=== PATIENT | male | born 1950 | race Caucasian/White ===

== ENCOUNTER → 2018-10-23 14:09 | Outpatient (CLI) | payer MEDICARE, BC, SELFPAY | PROVIDERS: Visit Provider Internal Medicine | DX: N40.0 Benign prostatic hyperplasia without lower urinary tract symptoms (principal); R97.20 Elevated prostate specific antigen [PSA] | CPT/HCPCS: 36415; 84153 ==

== ENCOUNTER 2019-05-30 15:15 | Outpatient (RCR) | payer MEDICARE, BC, SELFPAY ==
--- NOTE | 2019-05-24 15:15 | PT.OIE ---
Current Diagnoses Pain in left shoulder (05/24/19) Weakness (05/24/19) Unspecified injury of muscle(s) and tendon(s) of the rotator cuff of left shoulder, subsequent encounter (05/24/19) Past Medical History (Last Updated 01/21/19 @ 21:20 by Cecile Miller) Benign prostatic hyperplasia (Chronic ~2016) Rosacea (Chronic ~2019) Visit Care Team Role Provider Type Family Provider Specialty: Address: Phone: Fax: Email: Giovanni Cheng MD Attending Provider Physician Primary Care Provider Specialty: Internal Medicine Address: [address] [place] [address], [address], [address] Email: [email or web address] Physical Therapy Initial Evaluation PT-OP-A Visit Information Start: 05/24/19 15:06 Freq: Status: Active Protocol: Document 05/24/19 14:30 DCW (Rec: 05/24/19 15:11 DCW [id number]) Out-Patient Physical Therapy Visit Information Visit Information Visit Type Initial Evaluation Visit Start Time 14:30 Visit Stop Time 15:05 Total Visit Minutes 35 Visit Number 1 Number of GRAPHIC ENGINEER Visits 0 Evaluation Information Evaluation Date 05/24/19 PT-OP-B Current Condition Start: 05/24/19 15:06 Freq: Status: Active Protocol: Document 05/24/19 14:30 DCW (Rec: 05/24/19 17:45 DCW [id number]) Current Condition History of Current Condition Onset Date 8 months Current Complaints Left shoulder pain with certain positions History of Current Condition Pt is a 69 year old male presenting with an eight month history of left shoulder pain . Pt notes he initially just decided to ignore it, and he's been working hard helping to build his house and not allowing it to rest. Since he has basically finished up on his house, however, pt has noticed his shoulder has been feeling much better. Pt does not quite remember and actual injury, but believes his pain began when he was working under his house in a crawl space with his , trying to dig a new sump pump. Pt currently only seems to have pain when doing things like reaching back and up to put his arm in a sleeve. Future Testing and Treatments Planned PCP put in orders for an MRI, but pt has not yet scheduled one yet. PT-OP-C Subjective Start: 05/24/19 15:06 Freq: Status: Active Protocol: Document 05/24/19 14:30 DCW (Rec: 05/24/19 17:45 DCW [id number]) OP-PT Subjective Patient Comments Patient Comments Pt reports lessening pain since he has been able to rest his shoulder the past few weeks Patient Reported Progress Improving Patient Questionnaires Quick Dash- Upper Extremity Quick Dash UE Score 4.55% Quick Dash UE Impairment 1 to 19% Impaired (Score 1-19) OP-PT Pain Assessment Pain Assessment Grid Paper Pain Assessment Grid Completed Yes Location Left Superior Shoulder Pain Location Details Left Superior Shoulder Intensity 4 Scale Used Numeric (1 - 10) Frequency Intermittent PT-OP-E Functional Tests Start: 05/24/19 15:06 Freq: Status: Active Protocol: Document 05/24/19 14:30 DCW (Rec: 05/25/19 08:49 DCW [id number]) Functional Tests Apley's Scratch Test Action 1- Left Posterior opposite shoulder Action 1- Right Posterior opposite shoulder Action 2- Left T4 Action 2- Right T4 Action 3- Left T2 Action 3- Right T4 PT-OP-F Manual Assessment Start: 05/24/19 15:06 Freq: Status: Active Protocol: Document 05/24/19 14:30 DCW (Rec: 05/25/19 08:49 DCW [id number]) Manual Assessments Soft Tissue Assessment Soft Tissue Mobility Assessment Mild tone/trigger points throughout bilateral rotator cuff musculature, nothing abnormal PT-OP-K Range of Motion Start: 05/24/19 15:06 Freq: Status: Active Protocol: Document 05/24/19 14:30 DCW (Rec: 05/25/19 08:49 DCW [id number]) Shoulder Goniometric Range of Motion Shoulder Left Active Shoulder ROM WFL Yes PT-OP-L Special Tests Start: 05/24/19 15:06 Freq: Status: Active Protocol: Document 05/24/19 14:30 DCW (Rec: 05/25/19 08:49 DCW [id number]) Special Tests Shoulder Special Tests Painful Arc Test Results L mildly positive: pain in abd between 100?-160? Passive ER Rotator Cuff Test Results Negative Lift-Off Rotator Cuff Test Results Negative Perdomo Michael Impingement Test Results Negative Apprehension Test Test Results Negative Empty Can Test Results Negative Drop Arm Rotator Cuff Test Results Negative Belly Press Test Results Negative PT-OP-M Strength Start: 05/24/19 15:06 Freq: Status: Active Protocol: Document 05/24/19 14:30 DCW (Rec: 05/25/19 08:49 DCW [id number]) Shoulder Strength Shoulder Manual Muscle Testing Left Flexion 5 Normal Extension 5 Normal Abduction (C5) 4 Good External Rotation 5 Normal Internal Rotation 5 Normal Comments Pt reports pain with resisted abduction PT-OP-Q Treatments Start: 05/24/19 15:06 Freq: Status: Active Protocol: Document 05/24/19 14:30 DCW (Rec: 05/25/19 08:49 DCW [id number]) Therapeutic Exercises Standing Exercises External Rotation Standing Exercise Name Shoulder ER Side left Resistance Lv 3 Equipment Used T-band Internal Rotation Standing Exercise Name Shoulder IR Side left Resistance Lv 3 Equipment Used T-band Flexion Standing Exercise Name Shoulder Flexion Side left Resistance Lv 3 Equipment Used T-band Abduction Standing Exercise Name Shoulder Abduction Side left Resistance Lv 3 Equipment Used T-band PT-OP-T Assessment and Plan Start: 05/24/19 15:06 Freq: Status: Active Protocol: Document 05/24/19 14:30 DCW (Rec: 05/25/19 08:49 DCW [id number]) Physical Therapy Assessment Rehab Potential Rehabilitation Potential Excellent Evaluation Complexity Number of Personal Factors/Comorbidities 0 Number of Body Systems Impaired 1-2 Clinical Presentation at Evaluation Stable Impairments Impairments Pain,Strength Goals Two Impairment Pt has pain at 100?+ abduction Group Home Goal (LTG) Pt to be able to put arm in jacket with no increased shoulder pain. LTG Duration 07/05/19 One Impairment Pt does not have an appropriate home exercise program Short Term Goal (STG) Pt will be independent and compliant with an appropriate HEP STG Duration 06/14/19 Assessment Summary Assessment Pt presents with signs and symptoms of either a supraspinatus sprain or mild tear which has largely healed over the last eight months. Pt 's testing is largely negative , however he does still present with a positive painful arc test, as well as pain with resisted abduction. Pt will benefit from skilled therapy focusing on improving strength and stability of his left shoulder. As pt is already well on his way to healing, pt's course of therapy will not likely need to be very long, and he will probably do well with some HEP instruction and some moderate STM, and then continue independently at home. Physical Therapy Plan Frequency and Duration Frequency of Treatment 2x/Week Duration of Treatment 6 weeks Plan of Care Start Date 05/24/19 Plan of Care End Date 07/05/19 Therapeutic Interventions Therapeutic Interventions Home Exercise Program,Manual Therapy,Patient/Caregiver Education,Self-Care/Home Management,Soft Tissue Mobilization,Therapeutic Exercises Next Visit Focus/Plan Next Note Type Treatment Note Next Visit Plan Shoulder strengthening, modalities
--- NOTE | 2019-05-30 16:00 | PT.OTN ---
Current Diagnoses Pain in left shoulder (05/30/19) Weakness (05/30/19) Unspecified injury of muscle(s) and tendon(s) of the rotator cuff of left shoulder, subsequent encounter (05/30/19) Physical Therapy Treatment Note PT-OP-A Visit Information Start: 05/24/19 15:06 Freq: Status: Active Protocol: Document 05/30/19 15:15 DCW (Rec: 05/30/19 15:59 DCW [id number]) Out-Patient Physical Therapy Visit Information Visit Information Visit Type Treatment Note Visit Start Time 15:15 Visit Stop Time 16:00 Total Visit Minutes 45 Visit Number 2 Number of CHILD GUIDANCE COUNSELOR Visits 0 Evaluation Information Evaluation Date 05/24/19 PT-OP-B Current Condition Start: 05/24/19 15:06 Freq: Status: Active Protocol: Document 05/24/19 14:30 DCW (Rec: 05/24/19 17:45 DCW [id number]) Current Condition History of Current Condition Onset Date 8 months Current Complaints Left shoulder pain with certain positions History of Current Condition Pt is a 69 year old male presenting with an eight month history of left shoulder pain . Pt notes he initially just decided to ignore it, and he's been working hard helping to build his house and not allowing it to rest. Since he has basically finished up on his house, however, pt has noticed his shoulder has been feeling much better. Pt does not quite remember and actual injury, but believes his pain began when he was working under his house in a crawl space with his , trying to dig a new sump pump. Pt currently only seems to have pain when doing things like reaching back and up to put his arm in a sleeve. Future Testing and Treatments Planned PCP put in orders for an MRI, but pt has not yet scheduled one yet. PT-OP-C Subjective Start: 05/24/19 15:06 Freq: Status: Active Protocol: Document 05/30/19 15:15 DCW (Rec: 05/30/19 15:59 DCW [id number]) OP-PT Subjective Patient Comments Patient Comments Pt reports his shoulder is doing better today. PT-OP-E Functional Tests Start: 05/24/19 15:06 Freq: Status: Active Protocol: Document 05/24/19 14:30 DCW (Rec: 05/25/19 08:49 DCW [id number]) Functional Tests Apley's Scratch Test Action 1- Left Posterior opposite shoulder Action 1- Right Posterior opposite shoulder Action 2- Left T4 Action 2- Right T4 Action 3- Left T2 Action 3- Right T4 PT-OP-F Manual Assessment Start: 05/24/19 15:06 Freq: Status: Active Protocol: Document 05/24/19 14:30 DCW (Rec: 05/25/19 08:49 DCW [id number]) Manual Assessments Soft Tissue Assessment Soft Tissue Mobility Assessment Mild tone/trigger points throughout bilateral rotator cuff musculature, nothing abnormal PT-OP-K Range of Motion Start: 05/24/19 15:06 Freq: Status: Active Protocol: Document 05/24/19 14:30 DCW (Rec: 05/25/19 08:49 DCW [id number]) Shoulder Goniometric Range of Motion Shoulder Left Active Shoulder ROM WFL Yes PT-OP-L Special Tests Start: 05/24/19 15:06 Freq: Status: Active Protocol: Document 05/24/19 14:30 DCW (Rec: 05/25/19 08:49 DCW [id number]) Special Tests Shoulder Special Tests Painful Arc Test Results L mildly positive: pain in abd between 100?-160? Passive ER Rotator Cuff Test Results Negative Lift-Off Rotator Cuff Test Results Negative Perdomo Michael Impingement Test Results Negative Apprehension Test Test Results Negative Empty Can Test Results Negative Drop Arm Rotator Cuff Test Results Negative Belly Press Test Results Negative PT-OP-M Strength Start: 05/24/19 15:06 Freq: Status: Active Protocol: Document 05/24/19 14:30 DCW (Rec: 05/25/19 08:49 DCW [id number]) Shoulder Strength Shoulder Manual Muscle Testing Left Flexion 5 Normal Extension 5 Normal Abduction (C5) 4 Good External Rotation 5 Normal Internal Rotation 5 Normal Comments Pt reports pain with resisted abduction PT-OP-Q Treatments Start: 05/24/19 15:06 Freq: Status: Active Protocol: Document 05/30/19 15:15 DCW (Rec: 05/30/19 15:59 DCW [id number]) Cardio Equipment Upper Body Ergometer (UBE) Duration (Minutes) 5 RPM 60 Seat Position 13 Height 4.5 Therapeutic Exercises Supine Exercises Horizontal Adduction Supine Exercise Name Horizontal Adduction Side bilateral Resistance 4# Supine Punch Supine Exercise Name Serratus Punch Side bilateral Resistance 4# Sidelying Exercises External Rotation Sidelying Exercise Name External Rotation Side left Resistance 4# Abduction Sidelying Exercise Name Abduction Side left Resistance 4# Standing Exercises Rows Standing Exercise Name Rows Side bilateral Resistance Lv 3 Equipment Used T-band Adduction Standing Exercise Name Shoulder Adduction Side bilateral Resistance Lv 2 Equipment Used T-band Extension Standing Exercise Name Shoulder Extension Side bilateral Resistance Lv 2 Equipment Used T-band Other Exercises Resisted UE Side-stepping Other Exercise Name Resisted UE side-stepping Resistance Yellow Equipment Used T-band Manual Therapy Treatment Soft Tissue Mobilization Infraspinatus Body Location L Infraspinatus Mobilization Type Strumming,Sustained Pressure, Trigger Point Release Intensity/Depth Moderate Body Position Sidelying Supraspinatus Body Location L Supraspinatus Mobilization Type Strumming,Sustained Pressure, Trigger Point Release Intensity/Depth Moderate Body Position Sidelying Joint Mobilizations GH Joint L GH Direction Inferior Grade III Body Position Sidelying PT-OP-T Assessment and Plan Start: 05/24/19 15:06 Freq: Status: Active Protocol: Document 05/30/19 15:15 DCW (Rec: 05/30/19 15:59 DCW [id number]) Physical Therapy Assessment Impairments Impairments Pain,Strength Goals Two Impairment Pt has pain at 100?+ abduction Half-Way Goal (LTG) Pt to be able to put arm in jacket with no increased shoulder pain. LTG Duration 07/05/19 One Impairment Pt does not have an appropriate home exercise program Short Term Goal (STG) Pt will be independent and compliant with an appropriate HEP STG Duration 06/14/19 Assessment Summary Assessment Pt tolerated treatment very well today. Able to perform all activities within a pain- free ROM. Pt did note some irritation of his left shoulder with side-lying ER, but more of a muscle getting used aching. Physical Therapy Plan Frequency and Duration Frequency of Treatment 2x/Week Duration of Treatment 6 weeks Plan of Care Start Date 05/24/19 Plan of Care End Date 07/05/19 Therapeutic Interventions Therapeutic Interventions Home Exercise Program,Manual Therapy,Patient/Caregiver Education,Self-Care/Home Management,Soft Tissue Mobilization,Therapeutic Exercises Next Visit Focus/Plan Next Note Type Treatment Note Next Visit Plan Shoulder strengthening, modalities
--- NOTE | 2019-08-21 10:09 | PT.OPDS ---
Current Diagnoses Pain in left shoulder (05/30/19) Weakness (05/30/19) Unspecified injury of muscle(s) and tendon(s) of the rotator cuff of left shoulder, subsequent encounter (05/30/19) Visit Care Team Role Provider Type Family Provider Specialty: Address: Phone: Fax: Email: Giovanni Cheng MD Attending Provider Physician Primary Care Provider Specialty: Internal Medicine Address: [address] [place] [address], [address], [facility] Email: [email or web address] Visit Number Visit Number 2 Discharge Summary PT-OP-B Current Condition Start: 05/24/19 15:06 Freq: Status: Active Protocol: Document 05/24/19 14:30 DCW (Rec: 05/24/19 17:45 DCW [id number]) Current Condition History of Current Condition Onset Date 8 months Current Complaints Left shoulder pain with certain positions History of Current Condition Pt is a 69 year old male presenting with an eight month history of left shoulder pain . Pt notes he initially just decided to ignore it, and he's been working hard helping to build his house and not allowing it to rest. Since he has basically finished up on his house, however, pt has noticed his shoulder has been feeling much better. Pt does not quite remember and actual injury, but believes his pain began when he was working under his house in a crawl space with his , trying to dig a new sump pump. Pt currently only seems to have pain when doing things like reaching back and up to put his arm in a sleeve. Future Testing and Treatments Planned PCP put in orders for an MRI, but pt has not yet scheduled one yet. PT-OP-C Subjective Start: 05/24/19 15:06 Freq: Status: Active Protocol: Document 05/30/19 15:15 DCW (Rec: 05/30/19 15:59 DCW [id number]) OP-PT Subjective Patient Comments Patient Comments Pt reports his shoulder is doing better today. PT-OP-E Functional Tests Start: 05/24/19 15:06 Freq: Status: Active Protocol: Document 05/24/19 14:30 DCW (Rec: 05/25/19 08:49 DCW [id number]) Functional Tests Apley's Scratch Test Action 1- Left Posterior opposite shoulder Action 1- Right Posterior opposite shoulder Action 2- Left T4 Action 2- Right T4 Action 3- Left T2 Action 3- Right T4 PT-OP-F Manual Assessment Start: 05/24/19 15:06 Freq: Status: Active Protocol: Document 05/24/19 14:30 DCW (Rec: 05/25/19 08:49 DCW [id number]) Manual Assessments Soft Tissue Assessment Soft Tissue Mobility Assessment Mild tone/trigger points throughout bilateral rotator cuff musculature, nothing abnormal PT-OP-K Range of Motion Start: 05/24/19 15:06 Freq: Status: Active Protocol: Document 05/24/19 14:30 DCW (Rec: 05/25/19 08:49 DCW [id number]) Shoulder Goniometric Range of Motion Shoulder Left Active Shoulder ROM WFL Yes PT-OP-L Special Tests Start: 05/24/19 15:06 Freq: Status: Active Protocol: Document 05/24/19 14:30 DCW (Rec: 05/25/19 08:49 DCW [id number]) Special Tests Shoulder Special Tests Painful Arc Test Results L mildly positive: pain in abd between 100?-160? Passive ER Rotator Cuff Test Results Negative Lift-Off Rotator Cuff Test Results Negative Perdomo Michael Impingement Test Results Negative Apprehension Test Test Results Negative Empty Can Test Results Negative Drop Arm Rotator Cuff Test Results Negative Belly Press Test Results Negative PT-OP-M Strength Start: 05/24/19 15:06 Freq: Status: Active Protocol: Document 05/24/19 14:30 DCW (Rec: 05/25/19 08:49 DCW [id number]) Shoulder Strength Shoulder Manual Muscle Testing Left Flexion 5 Normal Extension 5 Normal Abduction (C5) 4 Good External Rotation 5 Normal Internal Rotation 5 Normal Comments Pt reports pain with resisted abduction PT-OP-T Assessment and Plan Start: 05/24/19 15:06 Freq: Status: Active Protocol: Document 08/21/19 10:08 DCW (Rec: 08/21/19 10:09 DCW [id number]) Physical Therapy Assessment Goals Two Impairment Pt has pain at 100?+ abduction Intermediate Goal (LTG) Pt to be able to put arm in jacket with no increased shoulder pain. LTG Duration 07/05/19 One Impairment Pt does not have an appropriate home exercise program Short Term Goal (STG) Pt will be independent and compliant with an appropriate HEP STG Duration 06/14/19 Assessment Summary Assessment Following his second appointment, pt canceled remaining appointments because he was leaving the area, unsure when he would return. Pt has now not been seen in more than two months, and will be discharged at this time. Pt will require a new referral in order to return. Physical Therapy Plan Frequency and Duration Frequency of Treatment 2x/Week Duration of Treatment 6 weeks Plan of Care Start Date 05/24/19 Plan of Care End Date 07/05/19 Therapeutic Interventions Therapeutic Interventions Home Exercise Program,Manual Therapy,Patient/Caregiver Education,Self-Care/Home Management,Soft Tissue Mobilization,Therapeutic Exercises Discharge Physical Therapy Discharge Reasons No Longer Attending PT Next Visit Focus/Plan Next Note Type Discharge Summary
== END 2019-05-30 16:15 ==
LOC: PHYS 15:15
PROVIDERS: PCP Student in an Organized Health Care Education/Training Program; Visit Provider Student in an Organized Health Care Education/Training Program
DX: M25.512 Pain in left shoulder (principal); S46.002D Unspecified injury of muscle(s) and tendon(s) of the rotator cuff of left shoulder, subsequent encounter; R53.1 Weakness
CPT/HCPCS: 97110; 97140; 97161

== ENCOUNTER → 2019-06-19 11:39 | Outpatient (CLI) | payer MEDICARE, BC, SELFPAY ==
[2019-06-21 16:34] LABS: PSA Free % 23 % (calc) (> 25); PSA, Total 3.9 ng/mL (< 4.1)
== END ==
PROVIDERS: PCP Student in an Organized Health Care Education/Training Program; Visit Provider Urology
DX: Z12.5 Encounter for screening for malignant neoplasm of prostate (principal); R97.20 Elevated prostate specific antigen [PSA]
CPT/HCPCS: 36415; 84153; 84154

== ENCOUNTER → 2019-06-21 13:10 | Outpatient (CLI) | payer MEDICARE, BC, SELFPAY ==
[2019-06-25 10:59] LABS: Fecal Immunochemical Test NOT DETECTED (NOT DETECTED)
== END ==
PROVIDERS: PCP Student in an Organized Health Care Education/Training Program; Visit Provider Student in an Organized Health Care Education/Training Program
DX: Z12.11 Encounter for screening for malignant neoplasm of colon (principal)
CPT/HCPCS: 82274

== ENCOUNTER → 2019-12-31 11:29 | Outpatient (CLI) | payer MEDICARE, BC, SELFPAY ==
[2019-12-31 12:29] LABS: Appearance Urine UA CLEAR; Bilirubin Urine UA NEGATIVE (NEGATIVE); Color Urine UA YELLOW; Glucose Urine UA NEGATIVE (Negative); Ketones Urine UA TRACE (NEGATIVE); Leukocyte Esterase Urine UA NEGATIVE (NEGATIVE); Nitrite Urine UA NEGATIVE (Negative); Occult Blood Urine UA TRACE-INTACT (Negative); Protein Urine UA NEGATIVE (Negative); Urobilinogen Urine UA 0.2 E.U./dL (0.2); pH Urine UA 6.5 (4.5-8.0)
[2019-12-31 12:55] LABS: Bacteria Urine Occasional (0-1); Culture Indicated Urine Cult Not Indicated; RBC Urine 0-1/HPF (0-5/HPF); WBC Urine 1-5/HPF (0-5/HPF)
== END ==
PROVIDERS: PCP Student in an Organized Health Care Education/Training Program; Referring Provider Internal Medicine; Visit Provider Urology
DX: R31.0 Gross hematuria (principal)
CPT/HCPCS: 36415; 81001

== ENCOUNTER → 2020-10-02 16:00 | Outpatient (CLI) | payer MEDICARE, BC, SELFPAY ==
[2020-10-03 13:45] LABS: Fecal Immunochemical Test Negative (Negative)
== END ==
PROVIDERS: PCP Student in an Organized Health Care Education/Training Program; Referring Provider Student in an Organized Health Care Education/Training Program; Visit Provider Student in an Organized Health Care Education/Training Program
DX: Z12.11 Encounter for screening for malignant neoplasm of colon (principal)
CPT/HCPCS: 82274

== ENCOUNTER → 2021-02-12 07:00 | Outpatient (CLI) | payer MEDICARE, BC, SELFPAY ==
[2021-02-12 07:15] LABS: Bacteria Urine None Seen; RBC Urine None Seen (0-5/HPF)
[2021-02-12 07:59] LABS: Appearance Urine UA CLEAR; Bilirubin Urine UA NEGATIVE (NEGATIVE); Color Urine UA YELLOW; Glucose Urine UA NEGATIVE (Negative); Ketones Urine UA NEGATIVE (NEGATIVE); Leukocyte Esterase Urine UA 1+ (NEGATIVE); Nitrite Urine UA NEGATIVE (Negative); Occult Blood Urine UA TRACE-LYSED (Negative); Protein Urine UA NEGATIVE (Negative); Specific Gravity Urine UA >=1.030 (1.000-1.035); Urobilinogen Urine UA 0.2 E.U./dL (0.2)
[2021-02-12 08:14] LABS: Alanine Aminotransferase 14 IU/L (<50); Albumin 4.1 g/dL (3.5-5.0); Albumin Globulin Ratio 1.5 (1.0-2.8); Alkaline Phosphatase 63 U/L (38-126); Aspartate Aminotransferase 40 IU/L (17-59); Bilirubin Unconjugated 0.9 mg/dL (0.0-1.1); Cholesterol 200 mg/dL (140-199); Globulin 2.8 g/dL (1.7-4.1); HDL Cholesterol 58 mg/dL (40-60); HEMOLYSIS < 15 (0-50); LDL Cholesterol Calculated 127 mg/dL (<100); Total Protein 6.9 g/dL (6.3-8.2); Triglycerides 75 mg/dL (35-150)
[2021-02-12 08:24] LABS: Culture Indicated Urine Specimen Cultured; WBC Urine 5-10/HPF (0-5/HPF)
[2021-02-13 06:08] LABS: PSA Free % 18.4 % (.); PSA, Total 3.2 ng/mL (0.0-4.0)
== END ==
PROVIDERS: PCP Student in an Organized Health Care Education/Training Program; Referring Provider Internal Medicine; Visit Provider Internal Medicine
DX: E78.5 Hyperlipidemia, unspecified (principal); R97.20 Elevated prostate specific antigen [PSA]; N39.0 Urinary tract infection, site not specified
CPT/HCPCS: 36415; 80061; 80076; 81001; 84153; 84154; 87086

== ENCOUNTER → 2022-12-27 07:32 | Outpatient (CLI) | payer MEDICARE, BC, SELFPAY ==
[2022-12-27 08:49] LABS: Cholesterol 176 mg/dL (140-199); HDL Cholesterol 60 mg/dL (40-60); LDL Cholesterol Calculated 94 mg/dL (<100); Triglycerides 109 mg/dL (35-150)
[2022-12-28 20:20] LABS: Hep C Virus Ab w/Reflex Quant NEGATIVE s/c (NEGATIVE)
== END ==
PROVIDERS: PCP Student in an Organized Health Care Education/Training Program; Referring Provider Student in an Organized Health Care Education/Training Program; Visit Provider Student in an Organized Health Care Education/Training Program
DX: E78.2 Mixed hyperlipidemia (principal)
CPT/HCPCS: 36415; 80061; 86803

== ENCOUNTER → 2023-01-07 11:20 | Outpatient (CLI) | payer MEDICARE, BC, SELFPAY ==
[2023-01-10 13:09] LABS: Fecal Immunochemical Test Negative (Negative)
== END ==
PROVIDERS: PCP Student in an Organized Health Care Education/Training Program; Referring Provider Student in an Organized Health Care Education/Training Program; Visit Provider Student in an Organized Health Care Education/Training Program
DX: Z12.11 Encounter for screening for malignant neoplasm of colon (principal)
CPT/HCPCS: 82274

== ENCOUNTER 2023-04-04 11:15 | Outpatient (RCR) | payer MEDICARE, BC, SELFPAY ==
--- NOTE | 2023-01-31 18:47 | PT.OIE ---
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] Visit Care Team Role Provider Type Ben Dennis MD Family Provider Physician Primary Care Provider Specialty: Internal Medicine Pediatrics Address: [address] [place] [address], [address] Phone: Fax: Email: [email or web address] Mary Dolan PA-C Attending Provider Advanced Shoer Referring Provider Specialty: Emergency Medicine Address: [address] [place] [address], [address] Email: [email or web address] Physical Therapy Initial Evaluation PT-OP-A Visit Information Start: 01/30/23 21:33 Freq: Status: Active Protocol: Document 01/31/23 08:04 LRN (Rec: 01/31/23 08:55 LRN [id number]) Out-Patient Physical Therapy Visit Information Visit Information Visit Type Initial Evaluation Visit Start Time 08:04 Visit Stop Time 08:54 Total Visit Minutes 50 Visit Number 1 Evaluation Information Evaluation Date 01/31/23 Precautions Precautions None PT-OP-B Current Condition Start: 01/30/23 21:33 Freq: Status: Active Protocol: Document 01/31/23 08:04 LRN (Rec: 01/31/23 08:55 LRN [id number]) Current Condition History of Current Condition Onset Date 11/2022 Current Complaints Back pain occasional LE pain, occasional R>L LE pain/ numbness. History of Current Condition Pt states 2 weeks ago he was stepping on shovel (to dig) and his back & R LE hurt intensely. Pt reports back and R>L LE pain that radiates down the entire leg into the ankle. States R leg is kind of numb with sometimes a dull ache pain. Occasionally leg feels weak and tired. States as long as he is sitting in his recliner he is fine. States lately he has been doing more sitting and reading . Stopped taking Meloxicam 4- 5 days ago because pain is tolerable. Developmental History Developmental History Early November 2022 he had front thigh and hamstring RLE pain and was given hamstring stretches that alleviated the pain until the recent onset. Pt reports history 20 yrs ago he had back pain from lifting something heavy. He had PT for 2 months that resolved his pain. His activity level is high ever winter because plays baseball on a [employer] league. Treatment Goals Patient/Caregiver Goals Pt goal is: pain to stop and to be able to run a mile and sprint 800 ft, sit in chairs other than recliner, return to active sport of baseball play for next season. Personal Factors Other Personal Factors That May Effect History of LBP injury 20 yrs Therapy/Recovery ago with onset of R front thigh and hamstring pain 2022. Pt is active with exercising due to being on a [employer] softball league. PT-OP-C Subjective Start: 01/30/23 21:33 Freq: Status: Active Protocol: Document 01/31/23 08:04 LRN (Rec: 01/31/23 08:55 LRN [id number]) Patient Questionnaires Oswestry Low Back Index Oswestry Score 22 - 1 question missing. OP-PT Pain Assessment Pain Assessment Grid Paper Pain Assessment Grid Completed Yes Location LB and RLE Pain Location Details Low back on R side and RLE to ankle Intensity 7 Scale Used Numeric (0 - 10) Description Aching Frequency Frequent Pain Alleviating Factors Cold,Heat Other Pain Alleviating Factors Walking, sitting recliner chair, sidelying. PT-OP-H Neuro Start: 01/30/23 21:33 Freq: Status: Active Protocol: Document 01/31/23 08:04 LRN (Rec: 01/31/23 08:55 LRN [id number]) Sensation Evaluation Gross Sensation Gross Sensation WNL Deep Tendon Reflex & Clonus Assessment Deep Tendon Reflex Bilateral Achilles Deep Tendon Reflex 2+ Normal Bilateral Patellar Deep Tendon Reflex 2+ Normal PT-OP-J Posture/Palpation/Skin Start: 01/30/23 21:33 Freq: Status: Active Protocol: Document 01/31/23 08:04 LRN (Rec: 01/31/23 08:55 LRN [id number]) Posture Evaluation Position Standing L-Spine Posture Increased Lordosis Pelvis Posture Anteriorly Tilted,(L) Rotated Anterior,(L) Rotated Posterior ,(L) PSIS Posterior,(L) PSIS Inferior Comments Posture Comments Sacrum posterior L. Increased anterior tilt L innominate. PT-OP-K Range of Motion Start: 01/30/23 21:33 Freq: Status: Active Protocol: Document 01/31/23 08:04 LRN (Rec: 01/31/23 08:55 LRN [id number]) Lumbar Spine Range of Motion Lumbar Spine Active Degrees Testing Position Standing Flexion 80 Extension 10 Rotation Left 15 Rotation Right 10 Lateral Flexion Left 13 Lateral Flexion Right 13 Comments Flexion: 80/52 Ext: 10/10 Hip Goniometric Range of Motion Hip Right Passive Testing Position Supine Straight Leg Raise 63 Internal Rotation 25 External Rotation 55 Comments Pain behind knee. Left Passive Testing Position Supine Straight Leg Raise 60 Internal Rotation 15 External Rotation 55 Comments Pain in back of calf PT-OP-L Special Tests Start: 01/30/23 21:33 Freq: Status: Active Protocol: Document 01/31/23 08:04 LRN (Rec: 01/31/23 08:55 LRN [id number]) Special Tests Lumbar Spine Special Tests Prone Press Up Test Results - Slump Test Results - Straight Leg Raise Test Results + bilaterally for neural tension. Hip Special Tests JERICA Test Results - Comments Anterior hip tightness. PT-OP-M Strength Start: 01/30/23 21:33 Freq: Status: Active Protocol: Document 01/31/23 08:04 LRN (Rec: 01/31/23 08:55 LRN [id number]) Hip Strength Hip Manual Muscle Testing Right Flexion (L2) 5 Normal Extension (S1) 5 Normal Abduction 5 Normal Adduction 5 Normal External Rotation 5 Normal Internal Rotation 5 Normal Left Flexion (L2) 5 Normal Abduction 5 Normal Adduction 5 Normal External Rotation 5 Normal Internal Rotation 4+ Good+ Comments Pain in L hip with hip IR MMT. PT-OP-Q Treatments Start: 01/30/23 21:33 Freq: Status: Active Protocol: Document 01/31/23 08:04 LRN (Rec: 01/31/23 08:55 LRN [id number]) Therapeutic Exercises Supine Exercises SKTC Supine Exercise Name SKTC Side bilateral Reps/Minutes 3' Prone Exercises DEUCE Prone Exercise Name DEUCE Reps/Minutes 10x Comments Extra time taken to determine max tolerated stretch. Self-Care/Home Management Treatment Education Patient Education Home Exercise Program Other Education ......... Activities Self-Care/Home Management Activities I/S pt in HEP of SKTC and DEUCE stretch. Unable to issue handout due to computer dysfunction. PT-OP-T Assessment and Plan Start: 01/30/23 21:33 Freq: Status: Active Protocol: Document 01/31/23 08:04 LRN (Rec: 01/31/23 08:55 LRN [id number]) Physical Therapy Assessment Rehab Potential Rehabilitation Potential Excellent Evaluation Complexity Number of Personal Factors/Comorbidities 0 Number of Body Systems Impaired 4 or More Clinical Presentation at Evaluation Evolving Impairments Impairments Activity Tolerance,Functional Mobility,Pain,ROM,Soft Tissue Mobility,Strength,Transfers Goals Three Impairment Decr'd ability to sit except for in his recliner due to low back/RLE pain Short Term Goal (STG) Pt will be educated in proper sit and standing posture. STG Duration 02/21/23 Commercial Loan Manager Goal (LTG) Pt will be able to sit without restriction in chair type without LBP/RLE pain. LTG Duration 05/01/23 Two Impairment LB/RLE > LE Pain limiting prior level of activity Impairment Pain limits movement of jogging (last jogged a month ago) 3 miles, and sprinting 100 yds (TM 10 minutes). Short Term Goal (STG) Pt will be able to sprint for short distances or walk on TM 10' STG Duration 03/02/23 Commercial Loan Manager Goal (LTG) Pt will be able to jog just under 1 mile without back or LE pain. LTG Duration 05/01/23 One Impairment Lacks appropriate self care HEP Short Term Goal (STG) Pt will be educated in proper body mechanics. STG Duration 02/21/23 Penitentiary Goal (LTG) Pt will be independent in self care HEP of core stab and trunk/LE neural and LE mobility exercises. LTG Duration 05/01/23 Assessment Summary Assessment Pt presents with resolving lumbar strain and possible SI dysfunction, with onset of soft tissue tightness, LE neural tension, decreased trunk/hip mobility and core stability, resulting in decreased activity tolerance to jogging/running and sitting tolerance. Per pt history of back pain he would benefit from pt education in proper posturing and body mechanics to protect his back against further injury. The pt will benefit from skilled physical therapy to achieve the above stated goals. Physical Therapy Plan Frequency and Duration Frequency of Treatment 2x/Week Plan of Care Start Date 01/31/23 Plan of Care End Date 05/01/23 Therapeutic Interventions Therapeutic Interventions Home Exercise Program,Joint Mobilizations,Manual Therapy, Neuromuscular Re-education, Patient/Caregiver Education, Self-Care/Home Management,Soft Tissue Mobilization, Therapeutic Activities, Therapeutic Exercises Modalities Cold Pack/Ice Massage,Electric Stimulation,Hot Packs, Traction- Mechanical, Ultrasound Next Visit Focus/Plan Next Note Type Treatment Note Next Visit Plan Pt to complete JOSE. Reassess posture for innominate position (possible R anterior rot innominate), or possible ? R sacral upslip. Assess for leg length, trunk strength, and SI dysfunction. Assess response and issue HEP for ex's started (SKTC, DEUCE). POC: Core/SI stabilization, neural glides to reduce tension, pt education in proper sitting/standing posture, education in body mechanics training, progress towards jogging/running and to improve sitting tolerance.
--- NOTE | 2023-01-31 18:48 | PT.OPPOC ---
Physical, Occupational & Speech Therapy At [facility] Current Diagnoses Lumbago with sciatica, unspecified side (01/31/23) Abnormal posture (01/31/23) Visit Care Team Role Provider Type Ben Dennis MD Family Provider Physician Primary Care Provider Specialty: Internal Medicine Pediatrics Address: [address] [place] [address], [address] Phone: Fax: Email: [email or web address] Mary Dolan PA-C Attending Provider Advanced Physician Primary Care Sports Medicine Referring Provider Specialty: Emergency Medicine Address: [address] [place] [address], [address] Email: [email or web address] Plan Of Care PT-OP-T Assessment and Plan Start: 01/30/23 21:33 Freq: Status: Active Protocol: Document 01/31/23 08:04 LRN (Rec: 01/31/23 08:55 LRN [id number]) Physical Therapy Assessment Rehab Potential Rehabilitation Potential Excellent Evaluation Complexity Number of Personal Factors/Comorbidities 0 Number of Body Systems Impaired 4 or More Clinical Presentation at Evaluation Evolving Impairments Impairments Activity Tolerance,Functional Mobility,Pain,ROM,Soft Tissue Mobility,Strength,Transfers Goals Three Impairment Decr'd ability to sit except for in his recliner due to low back/RLE pain Short Term Goal (STG) Pt will be educated in proper sit and standing posture. STG Duration 02/21/23 Blanket Cutting Machine Operator Goal (LTG) Pt will be able to sit without restriction in chair type without LBP/RLE pain. LTG Duration 05/01/23 Two Impairment LB/RLE > LE Pain limiting prior level of activity Impairment Pain limits movement of jogging (last jogged a month ago) 3 miles, and sprinting 100 yds (TM 10 minutes). Short Term Goal (STG) Pt will be able to sprint for short distances or walk on TM 10' STG Duration 03/02/23 Blanket Cutting Machine Operator Goal (LTG) Pt will be able to jog just under 1 mile without back or LE pain. LTG Duration 05/01/23 One Impairment Lacks appropriate self care HEP Short Term Goal (STG) Pt will be educated in proper body mechanics. STG Duration 02/21/23 Shelter Goal (LTG) Pt will be independent in self care HEP of core stab and trunk/LE neural and LE mobility exercises. LTG Duration 05/01/23 Assessment Summary Assessment Pt presents with resolving lumbar strain and possible SI dysfunction, with onset of soft tissue tightness, LE neural tension, decreased trunk/hip mobility and core stability, resulting in decreased activity tolerance to jogging/running and sitting tolerance. Per pt history of back pain he would benefit from pt education in proper posturing and body mechanics to protect his back against further injury. The pt will benefit from skilled physical therapy to achieve the above stated goals. Physical Therapy Plan Frequency and Duration Frequency of Treatment 2x/Week Plan of Care Start Date 01/31/23 Plan of Care End Date 05/01/23 Therapeutic Interventions Therapeutic Interventions Home Exercise Program,Joint Mobilizations,Manual Therapy, Neuromuscular Re-education, Patient/Caregiver Education, Self-Care/Home Management,Soft Tissue Mobilization, Therapeutic Activities, Therapeutic Exercises Modalities Cold Pack/Ice Massage,Electric Stimulation,Hot Packs, Traction- Mechanical, Ultrasound Next Visit Focus/Plan Next Note Type Treatment Note Next Visit Plan Pt to complete JOSE. Reassess posture for innominate position (possible R anterior rot innominate), or possible ? R sacral upslip. Assess for leg length, trunk strength, and SI dysfunction. Assess response and issue HEP for ex's started (SKTC, DEUCE). POC: Core/SI stabilization, neural glides to reduce tension, pt education in proper sitting/standing posture, education in body mechanics training, progress towards jogging/running and to improve sitting tolerance. Plan of Care Dates Plan of Care Start Date 01/31/23 Plan of Care End Date 05/01/23 Electronically Signed by: Gayle Salazar, PT 02/01/23 2683 If you are in agreement with this Plan of Care, please return a signed and dated copy. I have reviewed this Plan of Care and certify that the skilled therapy services above are required to meet the patient?s needs. Physician Signature Date Printed Name and Credentials Clinical Instructor Signature Printed Name and Credentials
--- NOTE | 2023-01-31 18:55 | PT.OIE ---
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] Visit Care Team Role Provider Type Ben Dennis MD Family Provider Physician Primary Care Provider Specialty: Internal Medicine Pediatrics Address: [address] [place] [address], [address] Phone: Fax: Email: [email or web address] Mary Dolan PA-C Attending Provider Advanced Manager Pet Referring Provider Specialty: Emergency Medicine Address: [address] [place] [address], [address] Email: [email or web address] Physical Therapy Initial Evaluation PT-OP-A Visit Information Start: 01/30/23 21:33 Freq: Status: Active Protocol: Document 01/31/23 08:04 LRN (Rec: 01/31/23 08:55 LRN [id number]) Out-Patient Physical Therapy Visit Information Visit Information Visit Type Initial Evaluation Visit Start Time 08:04 Visit Stop Time 08:54 Total Visit Minutes 50 Visit Number 1 Evaluation Information Evaluation Date 01/31/23 Precautions Precautions None PT-OP-B Current Condition Start: 01/30/23 21:33 Freq: Status: Active Protocol: Document 01/31/23 08:04 LRN (Rec: 01/31/23 08:55 LRN [id number]) Current Condition History of Current Condition Onset Date 11/2022 Current Complaints Back pain occasional LE pain, occasional R>L LE pain/ numbness. History of Current Condition Pt states 2 weeks ago he was stepping on shovel (to dig) and his back & R LE hurt intensely. Pt reports back and R>L LE pain that radiates down the entire leg into the ankle. States R leg is kind of numb with sometimes a dull ache pain. Occasionally leg feels weak and tired. States as long as he is sitting in his recliner he is fine. States lately he has been doing more sitting and reading . Stopped taking Meloxicam 4- 5 days ago because pain is tolerable. Developmental History Developmental History Early November 2022 he had front thigh and hamstring RLE pain and was given hamstring stretches that alleviated the pain until the recent onset. Pt reports history 20 yrs ago he had back pain from lifting something heavy. He had PT for 2 months that resolved his pain. His activity level is high ever winter because plays baseball on a [employer] league. Treatment Goals Patient/Caregiver Goals Pt goal is: pain to stop and to be able to run a mile and sprint 800 ft, sit in chairs other than recliner, return to active sport of baseball play for next season. Personal Factors Other Personal Factors That May Effect History of LBP injury 20 yrs Therapy/Recovery ago with onset of R front thigh and hamstring pain 2022. Pt is active with exercising due to being on a [employer] softball league. PT-OP-C Subjective Start: 01/30/23 21:33 Freq: Status: Active Protocol: Document 01/31/23 08:04 LRN (Rec: 01/31/23 08:55 LRN [id number]) Patient Questionnaires Oswestry Low Back Index Oswestry Score 22 - 1 question missing. OP-PT Pain Assessment Pain Assessment Grid Paper Pain Assessment Grid Completed Yes Location LB and RLE Pain Location Details Low back on R side and RLE to ankle Intensity 7 Scale Used Numeric (0 - 10) Description Aching Frequency Frequent Pain Alleviating Factors Cold,Heat Other Pain Alleviating Factors Walking, sitting recliner chair, sidelying. PT-OP-H Neuro Start: 01/30/23 21:33 Freq: Status: Active Protocol: Document 01/31/23 08:04 LRN (Rec: 01/31/23 08:55 LRN [id number]) Sensation Evaluation Gross Sensation Gross Sensation WNL Deep Tendon Reflex & Clonus Assessment Deep Tendon Reflex Bilateral Achilles Deep Tendon Reflex 2+ Normal Bilateral Patellar Deep Tendon Reflex 2+ Normal PT-OP-J Posture/Palpation/Skin Start: 01/30/23 21:33 Freq: Status: Active Protocol: Document 01/31/23 08:04 LRN (Rec: 01/31/23 08:55 LRN [id number]) Posture Evaluation Position Standing L-Spine Posture Increased Lordosis Pelvis Posture Anteriorly Tilted,(L) Rotated Anterior,(L) Rotated Posterior ,(L) PSIS Posterior,(L) PSIS Inferior Comments Posture Comments Sacrum posterior L. Increased anterior tilt L innominate. PT-OP-K Range of Motion Start: 01/30/23 21:33 Freq: Status: Active Protocol: Document 01/31/23 08:04 LRN (Rec: 01/31/23 08:55 LRN [id number]) Lumbar Spine Range of Motion Lumbar Spine Active Degrees Testing Position Standing Flexion 80 Extension 10 Rotation Left 15 Rotation Right 10 Lateral Flexion Left 13 Lateral Flexion Right 13 Comments Trunk AROM: Flexion is 80 deg ?s with 52 deg?s hip flexion, Trunk extension is 10 deg?s with 10 deg?s hip extension. Hip Goniometric Range of Motion Hip Right Passive Testing Position Supine Straight Leg Raise 63 Internal Rotation 25 External Rotation 55 Comments Pain behind knee. Left Passive Testing Position Supine Straight Leg Raise 60 Internal Rotation 15 External Rotation 55 Comments Pain in back of calf PT-OP-L Special Tests Start: 01/30/23 21:33 Freq: Status: Active Protocol: Document 01/31/23 08:04 LRN (Rec: 01/31/23 08:55 LRN [id number]) Special Tests Lumbar Spine Special Tests Prone Press Up Test Results - Slump Test Results - Straight Leg Raise Test Results + bilaterally for neural tension. Hip Special Tests JERICA Test Results - Comments Anterior hip tightness. PT-OP-M Strength Start: 01/30/23 21:33 Freq: Status: Active Protocol: Document 01/31/23 08:04 LRN (Rec: 01/31/23 08:55 LRN [id number]) Hip Strength Hip Manual Muscle Testing Right Flexion (L2) 5 Normal Extension (S1) 5 Normal Abduction 5 Normal Adduction 5 Normal External Rotation 5 Normal Internal Rotation 5 Normal Left Flexion (L2) 5 Normal Abduction 5 Normal Adduction 5 Normal External Rotation 5 Normal Internal Rotation 4+ Good+ Comments Pain in L hip with hip IR MMT. PT-OP-Q Treatments Start: 01/30/23 21:33 Freq: Status: Active Protocol: Document 01/31/23 08:04 LRN (Rec: 01/31/23 08:55 LRN [id number]) Therapeutic Exercises Supine Exercises SKTC Supine Exercise Name SKTC Side bilateral Reps/Minutes 3' Prone Exercises DEUCE Prone Exercise Name DEUCE Reps/Minutes 10x Comments Extra time taken to determine max tolerated stretch. Self-Care/Home Management Treatment Education Patient Education Home Exercise Program Other Education Discussed results of evaluation, goals, and plan of care (POC). Pt agreeable to goals and POC. Activities Self-Care/Home Management Activities I/S pt in HEP of SKTC and DEUCE stretch. Unable to issue handout due to computer dysfunction. PT-OP-T Assessment and Plan Start: 01/30/23 21:33 Freq: Status: Active Protocol: Document 01/31/23 08:04 LRN (Rec: 01/31/23 08:55 LRN [id number]) Physical Therapy Assessment Rehab Potential Rehabilitation Potential Excellent Evaluation Complexity Number of Personal Factors/Comorbidities 0 Number of Body Systems Impaired 4 or More Clinical Presentation at Evaluation Evolving Impairments Impairments Activity Tolerance,Functional Mobility,Pain,ROM,Soft Tissue Mobility,Strength,Transfers Goals Three Impairment Decr'd ability to sit except for in his recliner due to low back/RLE pain Short Term Goal (STG) Pt will be educated in proper sit and standing posture. STG Duration 02/21/23 Senior Living Goal (LTG) Pt will be able to sit without restriction in chair type without LBP/RLE pain. LTG Duration 05/01/23 Two Impairment LB/RLE > LE Pain limiting prior level of activity Impairment Pain limits movement of jogging (last jogged a month ago) 3 miles, and sprinting 100 yds (TM 10 minutes). Short Term Goal (STG) Pt will be able to sprint for short distances or walk on TM 10' STG Duration 03/02/23 Senior Living Goal (LTG) Pt will be able to jog just under 1 mile without back or LE pain. LTG Duration 05/01/23 One Impairment Lacks appropriate self care HEP Short Term Goal (STG) Pt will be educated in proper body mechanics. STG Duration 02/21/23 Yard Warehouse Worker Goal (LTG) Pt will be independent in self care HEP of core stab and trunk/LE neural and LE mobility exercises. LTG Duration 05/01/23 Assessment Summary Assessment Pt presents with resolving lumbar strain and possible SI dysfunction, with onset of soft tissue tightness, LE neural tension, decreased trunk/hip mobility and core stability, resulting in decreased activity tolerance to jogging/running and sitting tolerance. Per pt history of back pain he would benefit from pt education in proper posturing and body mechanics to protect his back against further injury. The pt will benefit from skilled physical therapy to achieve the above stated goals. Physical Therapy Plan Frequency and Duration Frequency of Treatment 2x/Week Plan of Care Start Date 01/31/23 Plan of Care End Date 05/01/23 Therapeutic Interventions Therapeutic Interventions Home Exercise Program,Joint Mobilizations,Manual Therapy, Neuromuscular Re-education, Patient/Caregiver Education, Self-Care/Home Management,Soft Tissue Mobilization, Therapeutic Activities, Therapeutic Exercises Modalities Cold Pack/Ice Massage,Electric Stimulation,Hot Packs, Traction- Mechanical, Ultrasound Next Visit Focus/Plan Next Note Type Treatment Note Next Visit Plan Pt to complete JOSE. Reassess posture for innominate position (possible R anterior rot innominate), or possible ? R sacral upslip. Assess for leg length, trunk strength, and SI dysfunction. Assess response and issue HEP for ex's started (SKTC, DEUCE). POC: Core/SI stabilization, neural glides to reduce tension, pt education in proper sitting/standing posture, education in body mechanics training, progress towards jogging/running and to improve sitting tolerance.
--- NOTE | 2023-02-03 17:32 | PT.OTN ---
Current Diagnoses Lumbago with sciatica, unspecified side (02/03/23) Abnormal posture (02/03/23) Physical Therapy Treatment Note PT-OP-A Visit Information Start: 01/30/23 21:33 Freq: Status: Active Protocol: Document 02/03/23 09:36 LRN (Rec: 02/03/23 10:30 LRN [id number]) Out-Patient Physical Therapy Visit Information Visit Information Visit Type Treatment Note Visit Start Time 09:36 Visit Stop Time 10:21 Total Visit Minutes 45 Visit Number 2 Evaluation Information Evaluation Date 01/31/23 Precautions Precautions None PT-OP-B Current Condition Start: 01/30/23 21:33 Freq: Status: Active Protocol: Document 01/31/23 08:04 LRN (Rec: 01/31/23 08:55 LRN [id number]) Current Condition History of Current Condition Onset Date 11/2022 Current Complaints Back pain occasional LE pain, occasional R>L LE pain/ numbness. History of Current Condition Pt states 2 weeks ago he was stepping on shovel (to dig) and his back & R LE hurt intensely. Pt reports back and R>L LE pain that radiates down the entire leg into the ankle. States R leg is kind of numb with sometimes a dull ache pain. Occasionally leg feels weak and tired. States as long as he is sitting in his recliner he is fine. States lately he has been doing more sitting and reading . Stopped taking Meloxicam 4- 5 days ago because pain is tolerable. Developmental History Developmental History Early November 2022 he had front thigh and hamstring RLE pain and was given hamstring stretches that alleviated the pain until the recent onset. Pt reports history 20 yrs ago he had back pain from lifting something heavy. He had PT for 2 months that resolved his pain. His activity level is high ever winter because plays baseball on a [employer] league. Treatment Goals Patient/Caregiver Goals Pt goal is: pain to stop and to be able to run a mile and sprint 800 ft, sit in chairs other than recliner, return to active sport of baseball play for next season. Personal Factors Other Personal Factors That May Effect History of LBP injury 20 yrs Therapy/Recovery ago with onset of R front thigh and hamstring pain 2022. Pt is active with exercising due to being on a [employer] soft[employer] league. PT-OP-C Subjective Start: 01/30/23 21:33 Freq: Status: Active Protocol: Document 02/03/23 09:36 LRN (Rec: 02/03/23 10:30 LRN [id number]) OP-PT Subjective Patient Comments Patient Comments States yesterday his back didn 't hurt, but towards evending the back of the leg felt weak and a little bit of pain. Today so far feels normal. Has been doing the ex's shown. Patient Questionnaires Neck Disability Index NDI Score 4 Neck Disability Index Impairment 1 to 19% Impaired (Score 1-9) Oswestry Low Back Index Oswestry Score 14 Oswestry Impairment 1 to 19% Impaired (Score 1-19) PT-OP-H Neuro Start: 01/30/23 21:33 Freq: Status: Active Protocol: Document 01/31/23 08:04 LRN (Rec: 01/31/23 08:55 LRN [id number]) Sensation Evaluation Gross Sensation Gross Sensation WNL Deep Tendon Reflex & Clonus Assessment Deep Tendon Reflex Bilateral Achilles Deep Tendon Reflex 2+ Normal Bilateral Patellar Deep Tendon Reflex 2+ Normal PT-OP-J Posture/Palpation/Skin Start: 01/30/23 21:33 Freq: Status: Active Protocol: Document 02/03/23 09:36 LRN (Rec: 02/03/23 10:30 LRN [id number]) Posture Evaluation Position Standing L-Spine Posture Increased Lordosis Pelvis Posture Anteriorly Tilted Palpation Assessment Location Medial Malleolus Palpation Location Medial Malleolus Palpation Details Equal position in supine R LE long in long sit. Leg length measure 92.5 cm bilaterally. BAck Palpation Location R QL and L Rhomboids Palpation Findings Muscle Guarding PT-OP-K Range of Motion Start: 01/30/23 21:33 Freq: Status: Active Protocol: Document 01/31/23 08:04 LRN (Rec: 01/31/23 08:55 LRN [id number]) Lumbar Spine Range of Motion Lumbar Spine Active Degrees Testing Position Standing Flexion 80 Extension 10 Rotation Left 15 Rotation Right 10 Lateral Flexion Left 13 Lateral Flexion Right 13 Comments Trunk AROM: Flexion is 80 deg ?s with 52 deg?s hip flexion, Trunk extension is 10 deg?s with 10 deg?s hip extension. Hip Goniometric Range of Motion Hip Right Passive Testing Position Supine Straight Leg Raise 63 Internal Rotation 25 External Rotation 55 Comments Pain behind knee. Left Passive Testing Position Supine Straight Leg Raise 60 Internal Rotation 15 External Rotation 55 Comments Pain in back of calf PT-OP-L Special Tests Start: 01/30/23 21:33 Freq: Status: Active Protocol: Document 02/03/23 09:36 LRN (Rec: 02/03/23 10:30 LRN [id number]) Special Tests Hip Special Tests Canela's Compression Test Results - bilaterally Log Roll Test Test Results - bilaterally JERICA Test Results - bilaterally Comments Anterior hip tightness R>L. PT-OP-M Strength Start: 01/30/23 21:33 Freq: Status: Active Protocol: Document 01/31/23 08:04 LRN (Rec: 01/31/23 08:55 LRN [id number]) Hip Strength Hip Manual Muscle Testing Right Flexion (L2) 5 Normal Extension (S1) 5 Normal Abduction 5 Normal Adduction 5 Normal External Rotation 5 Normal Internal Rotation 5 Normal Left Flexion (L2) 5 Normal Abduction 5 Normal Adduction 5 Normal External Rotation 5 Normal Internal Rotation 4+ Good+ Comments Pain in L hip with hip IR MMT. PT-OP-Q Treatments Start: 01/30/23 21:33 Freq: Status: Active Protocol: Document 02/03/23 09:36 LRN (Rec: 02/03/23 10:30 LRN [id number]) Therapeutic Exercises Supine Exercises Piriformis Supine Exercise Name Piriformis stretch, L>R Side left Reps/Minutes Hold through 6-8 breaths Fig 4 stretch Supine Exercise Name Fig 4 stretch through 8 breaths. SKTC Supine Exercise Name SKTC Side bilateral Reps/Minutes 3' Prone Exercises DEUCE Prone Exercise Name DEUCE Reps/Minutes 10SH x 8, f/b 2x just lift. Comments Extra time taken to determine max tolerated stretch and position. Standing Exercises Postural training Standing Exercise Name Postural training with review of handout. Equipment Used wall Reps/Minutes 4' Self-Care/Home Management Treatment Education Patient Education Home Exercise Program,Posture Other Education Pt educated in proper standing and sitting posture. Activities Self-Care/Home Management Activities Issued & reviewed HEP: SKTC ( held ex of hip AD stretches), Hip Fig 4, Piriformis (2 methods), and lateral hip stretch. PT-OP-T Assessment and Plan Start: 01/30/23 21:33 Freq: Status: Active Protocol: Document 02/03/23 09:36 LRN (Rec: 02/03/23 10:30 LRN [id number]) Physical Therapy Assessment Goals Three Impairment Decr'd ability to sit except for in his recliner due to low back/RLE pain Short Term Goal (STG) Pt will be educated in proper sit and standing posture. STG Duration 02/21/23 (02/03/23: MET GOAL ) Patch Finisher Goal (LTG) Pt will be able to sit without restriction in chair type without LBP/RLE pain. LTG Duration 05/01/23 Two Impairment LB/RLE > LE Pain limiting prior level of activity Impairment Pain limits movement of jogging (last jogged a month ago) 3 miles, and sprinting 100 yds (TM 10 minutes). Short Term Goal (STG) Pt will be able to sprint for short distances or walk on TM 10' STG Duration 03/02/23 Patch Finisher Goal (LTG) Pt will be able to jog just under 1 mile without back or LE pain. LTG Duration 05/01/23 One Impairment Lacks appropriate self care HEP Short Term Goal (STG) Pt will be educated in proper body mechanics. STG Duration 02/21/23 Patch Finisher Goal (LTG) Pt will be independent in self care HEP of core stab and trunk/LE neural and LE mobility exercises. 02/03/23: HEP: Hip R ER/L IR stretch LTG Duration 05/01/23 progressed 02/03/23 Progress Towards Goals Progress Comments Progressed HEP. JOSE shows improved function. Assessment Summary Assessment Pt presents with further lumbar strain resolution, with ms tightness of low back tightness > on R resulting in RLE long in long sit but equal in supine. JOSE improved from 22% to 14% impairment, and NDI indicates 4% impaired. Pt with LE neural tension. Pt holding DEUCE and SKTC ex's 20 secs, but in clinic with DEUCE of 10 SH pt had onset of buttock and posterior thigh reported dull ache stretch pain, possibly neural related due to holding stretch too long. There does not appear to be SIJ positional dysfunction but ms tightness with R ER (fig 4 stretch) and L IR (piriformis). Physical Therapy Plan Next Visit Focus/Plan Next Note Type Treatment Note Next Visit Plan Review hip stretches and add issued lateral hip and check hip AD tightness with addition of previously issued handout for stretch. Assess trunk strength. POC: Core/SI stabilization, neural glides to reduce tension, pt education in body mechanics training, progress towards jogging/running and to improve sitting tolerance.
--- NOTE | 2023-02-07 12:51 | PT.OTN ---
Current Diagnoses Lumbago with sciatica, unspecified side (02/07/23) Abnormal posture (02/07/23) Physical Therapy Treatment Note PT-OP-A Visit Information Start: 01/30/23 21:33 Freq: Status: Active Protocol: Document 02/07/23 12:01 SP (Rec: 02/07/23 12:53 SP [id number]) Out-Patient Physical Therapy Visit Information Visit Information Visit Type Treatment Note Visit Start Time 12:01 Visit Stop Time 12:51 Total Visit Minutes 50 Visit Number 3 Number of CANAL LOCK TENDER CHIEF OPERATOR Visits 1 Evaluation Information Evaluation Date 01/31/23 Precautions Precautions None PT-OP-B Current Condition Start: 01/30/23 21:33 Freq: Status: Active Protocol: Document 01/31/23 08:04 LRN (Rec: 01/31/23 08:55 LRN [id number]) Current Condition History of Current Condition Onset Date 11/2022 Current Complaints Back pain occasional LE pain, occasional R>L LE pain/ numbness. History of Current Condition Pt states 2 weeks ago he was stepping on shovel (to dig) and his back & R LE hurt intensely. Pt reports back and R>L LE pain that radiates down the entire leg into the ankle. States R leg is kind of numb with sometimes a dull ache pain. Occasionally leg feels weak and tired. States as long as he is sitting in his recliner he is fine. States lately he has been doing more sitting and reading . Stopped taking Meloxicam 4- 5 days ago because pain is tolerable. Developmental History Developmental History Early November 2022 he had front thigh and hamstring RLE pain and was given hamstring stretches that alleviated the pain until the recent onset. Pt reports history 20 yrs ago he had back pain from lifting something heavy. He had PT for 2 months that resolved his pain. His activity level is high ever winter because plays baseball on a [employer] league. Treatment Goals Patient/Caregiver Goals Pt goal is: pain to stop and to be able to run a mile and sprint 800 ft, sit in chairs other than recliner, return to active sport of baseball play for next season. Personal Factors Other Personal Factors That May Effect History of LBP injury 20 yrs Therapy/Recovery ago with onset of R front thigh and hamstring pain 2022. Pt is active with exercising due to being on a [employer] league. PT-OP-C Subjective Start: 01/30/23 21:33 Freq: Status: Active Protocol: Document 02/07/23 12:01 SP (Rec: 02/07/23 12:53 SP [id number]) OP-PT Subjective Patient Comments Patient Comments Pt reports back better, but more R lateral thigh soreness light did a work out but knows hasn't. He is compliant with stretching, maybe not as much as should/prescribed though. PT-OP-H Neuro Start: 01/30/23 21:33 Freq: Status: Active Protocol: Document 01/31/23 08:04 LRN (Rec: 01/31/23 08:55 LRN [id number]) Sensation Evaluation Gross Sensation Gross Sensation WNL Deep Tendon Reflex & Clonus Assessment Deep Tendon Reflex Bilateral Achilles Deep Tendon Reflex 2+ Normal Bilateral Patellar Deep Tendon Reflex 2+ Normal PT-OP-J Posture/Palpation/Skin Start: 01/30/23 21:33 Freq: Status: Active Protocol: Document 02/03/23 09:36 LRN (Rec: 02/03/23 10:30 LRN [id number]) Posture Evaluation Position Standing L-Spine Posture Increased Lordosis Pelvis Posture Anteriorly Tilted Palpation Assessment Location Medial Malleolus Palpation Location Medial Malleolus Palpation Details Equal position in supine R LE long in long sit. Leg length measure 92.5 cm bilaterally. BAck Palpation Location R QL and L Rhomboids Palpation Findings Muscle Guarding PT-OP-K Range of Motion Start: 01/30/23 21:33 Freq: Status: Active Protocol: Document 01/31/23 08:04 LRN (Rec: 01/31/23 08:55 LRN [id number]) Lumbar Spine Range of Motion Lumbar Spine Active Degrees Testing Position Standing Flexion 80 Extension 10 Rotation Left 15 Rotation Right 10 Lateral Flexion Left 13 Lateral Flexion Right 13 Comments Trunk AROM: Flexion is 80 deg ?s with 52 deg?s hip flexion, Trunk extension is 10 deg?s with 10 deg?s hip extension. Hip Goniometric Range of Motion Hip Right Passive Testing Position Supine Straight Leg Raise 63 Internal Rotation 25 External Rotation 55 Comments Pain behind knee. Left Passive Testing Position Supine Straight Leg Raise 60 Internal Rotation 15 External Rotation 55 Comments Pain in back of calf PT-OP-L Special Tests Start: 01/30/23 21:33 Freq: Status: Active Protocol: Document 02/03/23 09:36 LRN (Rec: 02/03/23 10:30 LRN [id number]) Special Tests Hip Special Tests Canela's Compression Test Results - bilaterally Log Roll Test Test Results - bilaterally JERICA Test Results - bilaterally Comments Anterior hip tightness R>L. PT-OP-M Strength Start: 01/30/23 21:33 Freq: Status: Active Protocol: Document 01/31/23 08:04 LRN (Rec: 01/31/23 08:55 LRN [id number]) Hip Strength Hip Manual Muscle Testing Right Flexion (L2) 5 Normal Extension (S1) 5 Normal Abduction 5 Normal Adduction 5 Normal External Rotation 5 Normal Internal Rotation 5 Normal Left Flexion (L2) 5 Normal Abduction 5 Normal Adduction 5 Normal External Rotation 5 Normal Internal Rotation 4+ Good+ Comments Pain in L hip with hip IR MMT. PT-OP-Q Treatments Start: 01/30/23 21:33 Freq: Status: Active Protocol: Document 02/07/23 12:01 SP (Rec: 02/07/23 12:53 SP [id number]) Therapeutic Exercises Supine Exercises lateral hip stretch Supine Exercise Name 90 deg held cross over opp LE Reps/Minutes 20 SH x4 reps Comments little pinching in anterior hip/groin, improved post manual romero Supine Exercise Name stretch: added to HEP Side right Equipment Used opp knee to chest Reps/Minutes 30 Comments good feedback quad stretch then hip flexor, occ cue TA no LB arch Piriformis Supine Exercise Name Piriformis stretch, L>R Side left Reps/Minutes Hold through 6-8 breaths Fig 4 stretch Supine Exercise Name Fig 4 stretch through 8 breaths. SKTC Supine Exercise Name SKTC then lateral emphasis Side bilateral Equipment Used grasp knee over opp LE Reps/Minutes 3' Prone Exercises DEUCE Prone Exercise Name POElbows Reps/Minutes 10SH x 8, f/b 2x just lift. Comments time spent TA engagement draw in for spinal support Other Exercises self STMs Other Exercise Name stand: ball wall over ES, GLut max/Med, Pirif Resistance seated: rolling pin quad, ITB, HS Reps/Minutes 5 min Comments good feedback response to compliment manual for home Manual Therapy Treatment Soft Tissue Mobilization R hip Body Location ITB, piriformis, adductor, TFL Mobilization Type Strumming,Sustained Pressure, Other Intensity/Depth Moderate Comments side, supine. Joint Mobilizations R hip Joint piriformis stretch position Direction inferolateral Grade II Body Position Hooklying Comments manual w/ use strap over anterior thigh anchored around therapist PT-OP-T Assessment and Plan Start: 01/30/23 21:33 Freq: Status: Active Protocol: Document 02/07/23 12:01 SP (Rec: 02/07/23 12:53 SP [id number]) Physical Therapy Assessment Goals Three Impairment Decr'd ability to sit except for in his recliner due to low back/RLE pain Short Term Goal (STG) Pt will be educated in proper sit and standing posture. STG Duration 02/21/23 (02/03/23: MET GOAL ) [facility] Goal (LTG) Pt will be able to sit without restriction in chair type without LBP/RLE pain. LTG Duration 05/01/23 Two Impairment LB/RLE > LE Pain limiting prior level of activity Impairment Pain limits movement of jogging (last jogged a month ago) 3 miles, and sprinting 100 yds (TM 10 minutes). Short Term Goal (STG) Pt will be able to sprint for short distances or walk on TM 10' STG Duration 03/02/23 Fci Goal (LTG) Pt will be able to jog just under 1 mile without back or LE pain. LTG Duration 05/01/23 One Impairment Lacks appropriate self care HEP Short Term Goal (STG) Pt will be educated in proper body mechanics. STG Duration 02/21/23 Gear Design Engineer Goal (LTG) Pt will be independent in self care HEP of core stab and trunk/LE neural and LE mobility exercises. 02/03/23: HEP: Hip R ER/L IR stretch LTG Duration 05/01/23 progressed 02/03/23 Assessment Summary Assessment Pt good feedback response with increased mobiltiy in hip and LB post manual, review stretching and ed for application ball wall&rolling pin for self carryover home. He reports less LB twinge with cue for TA fac as needed into lumbar extension. Physical Therapy Plan Frequency and Duration Frequency of Treatment 2x/Week Plan of Care Start Date 01/31/23 Plan of Care End Date 05/01/23 Therapeutic Interventions Therapeutic Interventions Home Exercise Program,Joint Mobilizations,Manual Therapy, Neuromuscular Re-education, Patient/Caregiver Education, Self-Care/Home Management,Soft Tissue Mobilization, Therapeutic Activities, Therapeutic Exercises Modalities Cold Pack/Ice Massage,Electric Stimulation,Hot Packs, Traction- Mechanical, Ultrasound Next Visit Focus/Plan Next Note Type Treatment Note Next Visit Plan Review hip stretches and add issued lateral hip and check hip AD tightness with addition of previously issued handout for stretch. Assess trunk strength. POC: Core/SI stabilization, neural glides to reduce tension, pt education in body mechanics training, progress towards jogging/running and to improve sitting tolerance.
--- NOTE | 2023-02-11 13:34 | PT.OTN ---
Current Diagnoses Lumbago with sciatica, unspecified side (02/11/23) Abnormal posture (02/11/23) Physical Therapy Treatment Note PT-OP-A Visit Information Start: 01/30/23 21:33 Freq: Status: Active Protocol: Document 02/11/23 12:52 SP (Rec: 02/11/23 13:35 SP [id number]) Out-Patient Physical Therapy Visit Information Visit Information Visit Type Treatment Note Visit Start Time 12:51 Visit Stop Time 13:34 Total Visit Minutes 43 Visit Number 4 Number of PESTICIDE APPLICATOR Visits 2 Evaluation Information Evaluation Date 01/31/23 Precautions Precautions None PT-OP-B Current Condition Start: 01/30/23 21:33 Freq: Status: Active Protocol: Document 01/31/23 08:04 LRN (Rec: 01/31/23 08:55 LRN [id number]) Current Condition History of Current Condition Onset Date 11/2022 Current Complaints Back pain occasional LE pain, occasional R>L LE pain/ numbness. History of Current Condition Pt states 2 weeks ago he was stepping on shovel (to dig) and his back & R LE hurt intensely. Pt reports back and R>L LE pain that radiates down the entire leg into the ankle. States R leg is kind of numb with sometimes a dull ache pain. Occasionally leg feels weak and tired. States as long as he is sitting in his recliner he is fine. States lately he has been doing more sitting and reading . Stopped taking Meloxicam 4- 5 days ago because pain is tolerable. Developmental History Developmental History Early November 2022 he had front thigh and hamstring RLE pain and was given hamstring stretches that alleviated the pain until the recent onset. Pt reports history 20 yrs ago he had back pain from lifting something heavy. He had PT for 2 months that resolved his pain. His activity level is high ever winter because plays baseball on a [employer] league. Treatment Goals Patient/Caregiver Goals Pt goal is: pain to stop and to be able to run a mile and sprint 800 ft, sit in chairs other than recliner, return to active sport of baseball play for next season. Personal Factors Other Personal Factors That May Effect History of LBP injury 20 yrs Therapy/Recovery ago with onset of R front thigh and hamstring pain 2022. Pt is active with exercising due to being on a Sr softball league. PT-OP-C Subjective Start: 01/30/23 21:33 Freq: Status: Active Protocol: Document 02/11/23 12:52 SP (Rec: 02/11/23 13:35 SP [id number]) OP-PT Subjective Patient Comments Patient Comments Pt reports R leg sore, tired, HS little cramping. Unsure yet if use pillows for sleeping support positioning helps comfort through night. Did feel pain LB with DEUCE at home so wants to review if doing correct. PT-OP-H Neuro Start: 01/30/23 21:33 Freq: Status: Active Protocol: Document 01/31/23 08:04 LRN (Rec: 01/31/23 08:55 LRN [id number]) Sensation Evaluation Gross Sensation Gross Sensation WNL Deep Tendon Reflex & Clonus Assessment Deep Tendon Reflex Bilateral Achilles Deep Tendon Reflex 2+ Normal Bilateral Patellar Deep Tendon Reflex 2+ Normal PT-OP-J Posture/Palpation/Skin Start: 01/30/23 21:33 Freq: Status: Active Protocol: Document 02/03/23 09:36 LRN (Rec: 02/03/23 10:30 LRN [id number]) Posture Evaluation Position Standing L-Spine Posture Increased Lordosis Pelvis Posture Anteriorly Tilted Palpation Assessment Location Medial Malleolus Palpation Location Medial Malleolus Palpation Details Equal position in supine R LE long in long sit. Leg length measure 92.5 cm bilaterally. BAck Palpation Location R QL and L Rhomboids Palpation Findings Muscle Guarding PT-OP-K Range of Motion Start: 01/30/23 21:33 Freq: Status: Active Protocol: Document 01/31/23 08:04 LRN (Rec: 01/31/23 08:55 LRN [id number]) Lumbar Spine Range of Motion Lumbar Spine Active Degrees Testing Position Standing Flexion 80 Extension 10 Rotation Left 15 Rotation Right 10 Lateral Flexion Left 13 Lateral Flexion Right 13 Comments Trunk AROM: Flexion is 80 deg ?s with 52 deg?s hip flexion, Trunk extension is 10 deg?s with 10 deg?s hip extension. Hip Goniometric Range of Motion Hip Right Passive Testing Position Supine Straight Leg Raise 63 Internal Rotation 25 External Rotation 55 Comments Pain behind knee. Left Passive Testing Position Supine Straight Leg Raise 60 Internal Rotation 15 External Rotation 55 Comments Pain in back of calf PT-OP-L Special Tests Start: 01/30/23 21:33 Freq: Status: Active Protocol: Document 02/03/23 09:36 LRN (Rec: 02/03/23 10:30 LRN [id number]) Special Tests Hip Special Tests Canela's Compression Test Results - bilaterally Log Roll Test Test Results - bilaterally JERICA Test Results - bilaterally Comments Anterior hip tightness R>L. PT-OP-M Strength Start: 01/30/23 21:33 Freq: Status: Active Protocol: Document 01/31/23 08:04 LRN (Rec: 01/31/23 08:55 LRN [id number]) Hip Strength Hip Manual Muscle Testing Right Flexion (L2) 5 Normal Extension (S1) 5 Normal Abduction 5 Normal Adduction 5 Normal External Rotation 5 Normal Internal Rotation 5 Normal Left Flexion (L2) 5 Normal Abduction 5 Normal Adduction 5 Normal External Rotation 5 Normal Internal Rotation 4+ Good+ Comments Pain in L hip with hip IR MMT. PT-OP-Q Treatments Start: 01/30/23 21:33 Freq: Status: Active Protocol: Document 02/11/23 12:52 SP (Rec: 02/11/23 13:35 SP [id number]) Therapeutic Exercises Supine Exercises bug Supine Exercise Name added to HEP lateral hip stretch Supine Exercise Name same as [facility] romero Supine Exercise Name stretch: reviewed HEP Side bilateral Equipment Used opp knee to chest Reps/Minutes 30 Comments extra time spent scoot edge for hip flexor stretch Piriformis Supine Exercise Name Piriformis stretch, R>L Side bilateral Reps/Minutes Hold through 6-8 breaths Comments Extra time spent use towel, 2nd leg elevated support vs contact table Fig 4 stretch Supine Exercise Name Fig 4 stretch through 8 breaths. Comments good feedback stretch SK Supine Exercise Name 1. SK 2. lateral emphasis Side bilateral Equipment Used grasp knee over opp LE Reps/Minutes 3' Comments 90 deg held cross over opp LE Prone Exercises DEUCE Prone Exercise Name POElbows Equipment Used 10SH x 8, f/b 2x just lift Reps/Minutes 6 min total w/ ed neutral CS/ nod, TA for spinal support and allow ROM Comments time spent TA engagement draw in for spinal support Self-Care/Home Management Treatment Education Patient Education Body Mechanics,Home Exercise Program,Joint Protection,Pain Management Other Education Extra time spent discussion anatomy and mechanics of back with DEUCE, core fac for spinal stabilization and combination of flexibility and strengthening for back health with proper body mechanics. PT-OP-T Assessment and Plan Start: 01/30/23 21:33 Freq: Status: Active Protocol: Document 02/11/23 12:52 SP (Rec: 02/11/23 13:35 SP [id number]) Physical Therapy Assessment Goals Three Impairment Decr'd ability to sit except for in his recliner due to low back/RLE pain Short Term Goal (STG) Pt will be educated in proper sit and standing posture. STG Duration 02/21/23 (02/03/23: MET GOAL ) Flight Physician Goal (LTG) Pt will be able to sit without restriction in chair type without LBP/RLE pain. LTG Duration 05/01/23 Two Impairment LB/RLE > LE Pain limiting prior level of activity Impairment Pain limits movement of jogging (last jogged a month ago) 3 miles, and sprinting 100 yds (TM 10 minutes). Short Term Goal (STG) Pt will be able to sprint for short distances or walk on TM 10' STG Duration 03/02/23 Flight Physician Goal (LTG) Pt will be able to jog just under 1 mile without back or LE pain. LTG Duration 05/01/23 One Impairment Lacks appropriate self care HEP Short Term Goal (STG) Pt will be educated in proper body mechanics. STG Duration 02/21/23 Residential Goal (LTG) Pt will be independent in self care HEP of core stab and trunk/LE neural and LE mobility exercises. 02/03/23: HEP: Hip R ER/L IR stretch LTG Duration 05/01/23 progressed 02/03/23 Assessment Summary Assessment Pt improved TA facilitation during DEUCE post extra time education of anatomy and mechanics. Pt good response to stretching and progression spinal stabilization to initiate bug with no low back recruitment reported. He states similiar to a crunch was thinking about adding to his personal HEP asked to hold off standard crunch at this time until progress in PT with verbalized agreement. Physical Therapy Plan Frequency and Duration Frequency of Treatment 2x/Week Plan of Care Start Date 01/31/23 Plan of Care End Date 05/01/23 Therapeutic Interventions Therapeutic Interventions Home Exercise Program,Joint Mobilizations,Manual Therapy, Neuromuscular Re-education, Patient/Caregiver Education, Self-Care/Home Management,Soft Tissue Mobilization, Therapeutic Activities, Therapeutic Exercises Modalities Cold Pack/Ice Massage,Electric Stimulation,Hot Packs, Traction- Mechanical, Ultrasound Next Visit Focus/Plan Next Note Type Treatment Note Next Visit Plan Recheck added bug. Trial elbow plank, neural glides next tx. CHeck body mechanics for yard work and back health . Assess trunk strength. POC: Core/SI stabilization, neural glides to reduce tension, pt education in body mechanics training, progress towards jogging/running and to improve sitting tolerance.
--- NOTE | 2023-02-15 11:33 | PT.OTN ---
Current Diagnoses Lumbago with sciatica, unspecified side (02/15/23) Abnormal posture (02/15/23) Physical Therapy Treatment Note PT-OP-A Visit Information Start: 01/30/23 21:33 Freq: Status: Active Protocol: Document 02/15/23 10:49 SP (Rec: 02/15/23 11:38 SP [id number]) Out-Patient Physical Therapy Visit Information Visit Information Visit Type Treatment Note Visit Start Time 10:49 Visit Stop Time 11:33 Total Visit Minutes 44 Visit Number 5 Number of HOURLY SHIFT MANAGER Visits 3 Evaluation Information Evaluation Date 01/31/23 Precautions Precautions None PT-OP-B Current Condition Start: 01/30/23 21:33 Freq: Status: Active Protocol: Document 01/31/23 08:04 LRN (Rec: 01/31/23 08:55 LRN [id number]) Current Condition History of Current Condition Onset Date 11/2022 Current Complaints Back pain occasional LE pain, occasional R>L LE pain/ numbness. History of Current Condition Pt states 2 weeks ago he was stepping on shovel (to dig) and his back & R LE hurt intensely. Pt reports back and R>L LE pain that radiates down the entire leg into the ankle. States R leg is kind of numb with sometimes a dull ache pain. Occasionally leg feels weak and tired. States as long as he is sitting in his recliner he is fine. States lately he has been doing more sitting and reading . Stopped taking Meloxicam 4- 5 days ago because pain is tolerable. Developmental History Developmental History Early November 2022 he had front thigh and hamstring RLE pain and was given hamstring stretches that alleviated the pain until the recent onset. Pt reports history 20 yrs ago he had back pain from lifting something heavy. He had PT for 2 months that resolved his pain. His activity level is high ever winter because plays baseball on a [employer] league. Treatment Goals Patient/Caregiver Goals Pt goal is: pain to stop and to be able to run a mile and sprint 800 ft, sit in chairs other than recliner, return to active sport of baseball play for next season. Personal Factors Other Personal Factors That May Effect History of LBP injury 20 yrs Therapy/Recovery ago with onset of R front thigh and hamstring pain 2022. Pt is active with exercising due to being on a Sr softball league. PT-OP-C Subjective Start: 01/30/23 21:33 Freq: Status: Active Protocol: Document 02/15/23 10:49 SP (Rec: 02/15/23 11:38 SP [id number]) OP-PT Subjective Patient Comments Patient Comments Pt reports thought exercises seem to do more harm than good , yesterday couldn't do ex as directed due to R hip/back pain SI area after walking on trails. But then today doing good. He continues have occasional radiation down thigh and into calf but mainly thigh. PT-OP-H Neuro Start: 01/30/23 21:33 Freq: Status: Active Protocol: Document 01/31/23 08:04 LRN (Rec: 01/31/23 08:55 LRN [id number]) Sensation Evaluation Gross Sensation Gross Sensation WNL Deep Tendon Reflex & Clonus Assessment Deep Tendon Reflex Bilateral Achilles Deep Tendon Reflex 2+ Normal Bilateral Patellar Deep Tendon Reflex 2+ Normal PT-OP-J Posture/Palpation/Skin Start: 01/30/23 21:33 Freq: Status: Active Protocol: Document 02/03/23 09:36 LRN (Rec: 02/03/23 10:30 LRN [id number]) Posture Evaluation Position Standing L-Spine Posture Increased Lordosis Pelvis Posture Anteriorly Tilted Palpation Assessment Location Medial Malleolus Palpation Location Medial Malleolus Palpation Details Equal position in supine R LE long in long sit. Leg length measure 92.5 cm bilaterally. BAck Palpation Location R QL and L Rhomboids Palpation Findings Muscle Guarding PT-OP-K Range of Motion Start: 01/30/23 21:33 Freq: Status: Active Protocol: Document 01/31/23 08:04 LRN (Rec: 01/31/23 08:55 LRN [id number]) Lumbar Spine Range of Motion Lumbar Spine Active Degrees Testing Position Standing Flexion 80 Extension 10 Rotation Left 15 Rotation Right 10 Lateral Flexion Left 13 Lateral Flexion Right 13 Comments Trunk AROM: Flexion is 80 deg ?s with 52 deg?s hip flexion, Trunk extension is 10 deg?s with 10 deg?s hip extension. Hip Goniometric Range of Motion Hip Right Passive Testing Position Supine Straight Leg Raise 63 Internal Rotation 25 External Rotation 55 Comments Pain behind knee. Left Passive Testing Position Supine Straight Leg Raise 60 Internal Rotation 15 External Rotation 55 Comments Pain in back of calf PT-OP-L Special Tests Start: 06/11/23 21:33 Freq: Status: Active Protocol: Document 02/03/23 09:36 LRN (Rec: 02/03/23 10:30 LRN [id number]) Special Tests Hip Special Tests Canela's Compression Test Results - bilaterally Log Roll Test Test Results - bilaterally JERICA Test Results - bilaterally Comments Anterior hip tightness R>L. PT-OP-M Strength Start: 01/30/23 21:33 Freq: Status: Active Protocol: Document 01/31/23 08:04 LRN (Rec: 01/31/23 08:55 LRN [id number]) Hip Strength Hip Manual Muscle Testing Right Flexion (L2) 5 Normal Extension (S1) 5 Normal Abduction 5 Normal Adduction 5 Normal External Rotation 5 Normal Internal Rotation 5 Normal Left Flexion (L2) 5 Normal Abduction 5 Normal Adduction 5 Normal External Rotation 5 Normal Internal Rotation 4+ Good+ Comments Pain in L hip with hip IR MMT. PT-OP-Q Treatments Start: 01/30/23 21:33 Freq: Status: Active Protocol: Document 02/15/23 10:49 SP (Rec: 02/15/23 11:38 SP [id number]) Therapeutic Exercises Supine Exercises romero Supine Exercise Name stretch: reviewed HEP Side bilateral Equipment Used opp knee on table Reps/Minutes 3 min, static stretch and w/ manual Comments extra time spent scoot edge for hip flexor stretch SK Supine Exercise Name 1. SKTC 2. lateral emphasis Side bilateral Equipment Used grasp knee over opp LE Reps/Minutes 3' Comments 90 deg held cross over opp LE- states helps home Sidelying Exercises clamshell Sidelying Exercise Name added to HEP Side bilateral Resistance AROM> TB #2>TB #3 loop around thighs Reps/Minutes 5 sh x10 reps 2 sets on R Comments extra time positioning, strength find proper strength and glut fac response Standing Exercises step ups Standing Exercise Name added to HEP: single repeated Side right Equipment Used rail PRN Reps/Minutes x10 Comments cued TA, level pelvis, glut fac- painfree Other Exercises self STMs Other Exercise Name stand: discussed review GLut max/Med, Pirif Resistance seated: rolling pin quad, ITB, HS Reps/Minutes not performed today Comments stated forgot can help like in PT for home- will try Manual Therapy Treatment Soft Tissue Mobilization R hip Body Location ITB R HS in 90/90 position, hooklying quad/TFL Mobilization Type Strumming,Sustained Pressure, Other Intensity/Depth Moderate Body Position Hooklying Comments strumming distal HS, ITB and MWM LE ext/flexion. Improved decrease tightness in back pelvis. PT-OP-T Assessment and Plan Start: 01/30/23 21:33 Freq: Status: Active Protocol: Document 02/15/23 10:49 SP (Rec: 02/15/23 11:38 SP [id number]) Physical Therapy Assessment Goals Three Impairment Decr'd ability to sit except for in his recliner due to low back/RLE pain Short Term Goal (STG) Pt will be educated in proper sit and standing posture. STG Duration 02/21/23 (02/03/23: MET GOAL ) Senior Living Goal (LTG) Pt will be able to sit without restriction in chair type without LBP/RLE pain. LTG Duration 05/01/23 Two Impairment LB/RLE > LE Pain limiting prior level of activity Impairment Pain limits movement of jogging (last jogged a month ago) 3 miles, and sprinting 100 yds (TM 10 minutes). Short Term Goal (STG) Pt will be able to sprint for short distances or walk on TM 10' 02/15/23: Pt hasn't jogged, did do some hiking on trails and had some SI pain when step up motions. STG Duration 03/02/23 updated 02/15/23 Senior Living Goal (LTG) Pt will be able to jog just under 1 mile without back or LE pain. LTG Duration 05/01/23 One Impairment Lacks appropriate self care HEP Short Term Goal (STG) Pt will be educated in proper body mechanics. STG Duration 02/21/23 Senior Living Goal (LTG) Pt will be independent in self care HEP of core stab and trunk/LE neural and LE mobility exercises. 02/03/23: HEP: Hip R ER/L IR stretch 02/15/23: added resisted clamshell and single repeated step ups for pirirformis &glut drive fac- reports feel better R hip. LTG Duration 05/01/23 progressed 02/15/23 Assessment Summary Assessment Pt responded well to manual and added resisted clamshell and step ups with increased hip abd and glut fac no pain. Physical Therapy Plan Frequency and Duration Frequency of Treatment 2x/Week Plan of Care Start Date 01/31/23 Plan of Care End Date 05/01/23 Therapeutic Interventions Therapeutic Interventions Home Exercise Program,Joint Mobilizations,Manual Therapy, Neuromuscular Re-education, Patient/Caregiver Education, Self-Care/Home Management,Soft Tissue Mobilization, Therapeutic Activities, Therapeutic Exercises Modalities Cold Pack/Ice Massage,Electric Stimulation,Hot Packs, Traction- Mechanical, Ultrasound Next Visit Focus/Plan Next Note Type Treatment Note Next Visit Plan Recheck bug, clamshell on side, step ups added, next tx add neural glides. CHeck body mechanics for yard work and back health. Assess trunk strength. POC: Core/SI stabilization, neural glides to reduce tension, pt education in body mechanics training, progress towards jogging/running and to improve sitting tolerance.
--- NOTE | 2023-02-17 17:13 | PT.OTN ---
Current Diagnoses Lumbago with sciatica, unspecified side (02/17/23) Abnormal posture (02/17/23) Physical Therapy Treatment Note PT-OP-A Visit Information Start: 01/30/23 21:33 Freq: Status: Active Protocol: Document 02/17/23 10:35 LRN (Rec: 02/17/23 11:21 LRN [id number]) Out-Patient Physical Therapy Visit Information Visit Information Visit Type Treatment Note Visit Start Time 10:35 Visit Stop Time 11:15 Total Visit Minutes 40 Visit Number 5 Number of MICROWAVE TECHNICIAN Visits 3 Evaluation Information Evaluation Date 01/31/23 Precautions Precautions None PT-OP-B Current Condition Start: 01/30/23 21:33 Freq: Status: Active Protocol: Document 01/31/23 08:04 LRN (Rec: 01/31/23 08:55 LRN [id number]) Current Condition History of Current Condition Onset Date 11/2022 Current Complaints Back pain occasional LE pain, occasional R>L LE pain/ numbness. History of Current Condition Pt states 2 weeks ago he was stepping on shovel (to dig) and his back & R LE hurt intensely. Pt reports back and R>L LE pain that radiates down the entire leg into the ankle. States R leg is kind of numb with sometimes a dull ache pain. Occasionally leg feels weak and tired. States as long as he is sitting in his recliner he is fine. States lately he has been doing more sitting and reading . Stopped taking Meloxicam 4- 5 days ago because pain is tolerable. Developmental History Developmental History Early November 2022 he had front thigh and hamstring RLE pain and was given hamstring stretches that alleviated the pain until the recent onset. Pt reports history 20 yrs ago he had back pain from lifting something heavy. He had PT for 2 months that resolved his pain. His activity level is high ever winter because plays baseball on a [employer] league. Treatment Goals Patient/Caregiver Goals Pt goal is: pain to stop and to be able to run a mile and sprint 800 ft, sit in chairs other than recliner, return to active sport of baseball play for next season. Personal Factors Other Personal Factors That May Effect History of LBP injury 20 yrs Therapy/Recovery ago with onset of R front thigh and hamstring pain 2022. Pt is active with exercising due to being on a Sr softball league. PT-OP-C Subjective Start: 01/30/23 21:33 Freq: Status: Active Protocol: Document 02/17/23 10:35 LRN (Rec: 02/17/23 11:21 LRN [id number]) OP-PT Subjective Patient Comments Patient Comments States he is having a good day because when got up he had a slight twinge in back and R lower buttock and R thigh was numb and sore. Use of vibrator to the thigh was helpful. PT-OP-H Neuro Start: 01/30/23 21:33 Freq: Status: Active Protocol: Document 01/31/23 08:04 LRN (Rec: 01/31/23 08:55 LRN [id number]) Sensation Evaluation Gross Sensation Gross Sensation WNL Deep Tendon Reflex & Clonus Assessment Deep Tendon Reflex Bilateral Achilles Deep Tendon Reflex 2+ Normal Bilateral Patellar Deep Tendon Reflex 2+ Normal PT-OP-J Posture/Palpation/Skin Start: 01/30/23 21:33 Freq: Status: Active Protocol: Document 02/03/23 09:36 LRN (Rec: 02/03/23 10:30 LRN [id number]) Posture Evaluation Position Standing L-Spine Posture Increased Lordosis Pelvis Posture Anteriorly Tilted Palpation Assessment Location Medial Malleolus Palpation Location Medial Malleolus Palpation Details Equal position in supine R LE long in long sit. Leg length measure 92.5 cm bilaterally. BAck Palpation Location R QL and L Rhomboids Palpation Findings Muscle Guarding PT-OP-K Range of Motion Start: 01/30/23 21:33 Freq: Status: Active Protocol: Document 02/17/23 10:35 LRN (Rec: 02/17/23 11:21 LRN [id number]) Hip Goniometric Range of Motion Hip Right Passive Testing Position Supine Straight Leg Raise 68 Internal Rotation 25 External Rotation 45 Comments Pain behind upper calf. Left Passive Testing Position Supine Straight Leg Raise 70 Internal Rotation 25 External Rotation 70 Comments Pain behind knee & upper calf. PT-OP-L Special Tests Start: 01/30/23 21:33 Freq: Status: Active Protocol: Document 02/03/23 09:36 LRN (Rec: 02/03/23 10:30 LRN [id number]) Special Tests Hip Special Tests Canela's Compression Test Results - bilaterally Log Roll Test Test Results - bilaterally JERICA Test Results - bilaterally Comments Anterior hip tightness R>L. PT-OP-M Strength Start: 01/30/23 21:33 Freq: Status: Active Protocol: Document 01/31/23 08:04 LRN (Rec: 01/31/23 08:55 LRN [id number]) Hip Strength Hip Manual Muscle Testing Right Flexion (L2) 5 Normal Extension (S1) 5 Normal Abduction 5 Normal Adduction 5 Normal External Rotation 5 Normal Internal Rotation 5 Normal Left Flexion (L2) 5 Normal Abduction 5 Normal Adduction 5 Normal External Rotation 5 Normal Internal Rotation 4+ Good+ Comments Pain in L hip with hip IR MMT. PT-OP-Q Treatments Start: 01/30/23 21:33 Freq: Status: Active Protocol: Document 02/17/23 10:35 LRN (Rec: 02/17/23 11:21 LRN [id number]) Therapeutic Exercises Supine Exercises anurag Supine Exercise Name stretch: reviewed for hold time: 10x of TA, 4 breath, 10 leg swings Side bilateral Equipment Used opp KTC Reps/Minutes 2x stretch hold sequence Comments extra time spent scoot edge for hip flexor stretch Piriformis Supine Exercise Name L hip IR hold seqence: ankle circles, 4 breaths,10 relax stretches Side bilateral Comments Cuing for holding ankle w/ stretch and for stretch through 2 sequences Fig 4 stretch Supine Exercise Name ER Fig 4 stretch: hold sequence:ankle circles, 4 breaths,10 relax stretch Side right Comments Cuing for sequence and holding Prone Exercises DEUCE Prone Exercise Name DEUCE elbows Equipment Used 10SH x 8, f/b 2x just lift Reps/Minutes 6 min total w/ ed neutral CS/ nod, TA for spinal support and allow ROM Comments time spent TA engagement draw in for spinal support Sidelying Exercises clamshell Sidelying Exercise Name added to HEP Side bilateral Resistance AROM> TB #2>TB #3 loop around thighs Reps/Minutes 5 sh x10 reps 2 sets on R Comments extra time positioning, strength find proper strength and glut fac response Self-Care/Home Management Treatment Education Patient Education Home Exercise Program Activities Self-Care/Home Management Activities Re-issued HEP for Anurag stretch with additional instructions for holding stretch. Issued & reviewed HEP: DEUCE ex for trunk ext. PT-OP-T Assessment and Plan Start: 01/30/23 21:33 Freq: Status: Active Protocol: Document 02/17/23 10:35 LRN (Rec: 02/17/23 11:21 LRN [id number]) Physical Therapy Assessment Goals Three Impairment Decr'd ability to sit except for in his recliner due to low back/RLE pain Short Term Goal (STG) Pt will be educated in proper sit and standing posture. STG Duration 02/21/23 (02/03/23: MET GOAL ) Freezer Laboratory Technician Goal (LTG) Pt will be able to sit without restriction in chair type without LBP/RLE pain. LTG Duration 05/01/23 Two Impairment LB/RLE > LE Pain limiting prior level of activity Impairment Pain limits movement of jogging (last jogged a month ago) 3 miles, and sprinting 100 yds (TM 10 minutes). Short Term Goal (STG) Pt will be able to sprint for short distances or walk on TM 10' 02/15/23: Pt hasn't jogged, did do some hiking on trails and had some SI pain when step up motions. STG Duration 03/02/23 updated 02/15/23 Half-Way Goal (LTG) Pt will be able to jog just under 1 mile without back or LE pain. LTG Duration 05/01/23 One Impairment Lacks appropriate self care HEP Short Term Goal (STG) Pt will be educated in proper body mechanics. STG Duration 02/21/23 Half-Way Goal (LTG) Pt will be independent in self care HEP of core stab and trunk/LE neural and LE mobility exercises. 02/03/23: HEP: Hip R ER/L IR stretch 02/15/23: added resisted clamshell and single repeated step ups for pirirformis &glut drive fac- reports feel better R hip. 02/17/23: HEP: DEUCE. Reissued Anurag stretch for hold time. LTG Duration 05/01/23 progressed 02/15/23 Progress Towards Goals Progress Comments Progressed HEP. Assessment Summary Assessment Pt R hip ER mobility notably restricted & bilateral ER is very restricted; therefore improvement in mobility in these areas would be beneficial. Pt appears to be doing well with core stab ex's although he has not been doing clamshell ex. Physical Therapy Plan Frequency and Duration Frequency of Treatment 2x/Week Plan of Care Start Date 01/31/23 Plan of Care End Date 05/01/23 Next Visit Focus/Plan Next Note Type Treatment Note Next Visit Plan Review clamshell on side & step ups added. Pt education in body mechanics training for yard work and back health. Add LE neural glides. Assess trunk strength. POC: Core/SI stabilization, neural glides to reduce tension, pt education in body mechanics training, progress towards jogging/running and to improve sitting tolerance.
--- NOTE | 2023-02-21 11:38 | PT.OTN ---
Current Diagnoses Lumbago with sciatica, unspecified side (02/21/23) Abnormal posture (02/21/23) Physical Therapy Treatment Note PT-OP-A Visit Information Start: 01/30/23 21:33 Freq: Status: Active Protocol: Document 02/21/23 10:45 SP (Rec: 02/21/23 11:41 SP [id number]) Out-Patient Physical Therapy Visit Information Visit Information Visit Type Treatment Note Visit Start Time 10:45 Visit Stop Time 11:38 Total Visit Minutes 53 Visit Number 6 Number of SLASHER RUNNER Visits 1 Evaluation Information Evaluation Date 01/31/23 Precautions Precautions None PT-OP-B Current Condition Start: 01/30/23 21:33 Freq: Status: Active Protocol: Document 01/31/23 08:04 LRN (Rec: 01/31/23 08:55 LRN [id number]) Current Condition History of Current Condition Onset Date 11/2022 Current Complaints Back pain occasional LE pain, occasional R>L LE pain/ numbness. History of Current Condition Pt states 2 weeks ago he was stepping on shovel (to dig) and his back & R LE hurt intensely. Pt reports back and R>L LE pain that radiates down the entire leg into the ankle. States R leg is kind of numb with sometimes a dull ache pain. Occasionally leg feels weak and tired. States as long as he is sitting in his recliner he is fine. States lately he has been doing more sitting and reading . Stopped taking Meloxicam 4- 5 days ago because pain is tolerable. Developmental History Developmental History Early November 2022 he had front thigh and hamstring RLE pain and was given hamstring stretches that alleviated the pain until the recent onset. Pt reports history 20 yrs ago he had back pain from lifting something heavy. He had PT for 2 months that resolved his pain. His activity level is high ever winter because plays baseball on a [employer] league. Treatment Goals Patient/Caregiver Goals Pt goal is: pain to stop and to be able to run a mile and sprint 800 ft, sit in chairs other than recliner, return to active sport of baseball play for next season. Personal Factors Other Personal Factors That May Effect History of LBP injury 20 yrs Therapy/Recovery ago with onset of R front thigh and hamstring pain 2022. Pt is active with exercising due to being on a Sr softball league. PT-OP-C Subjective Start: 01/30/23 21:33 Freq: Status: Active Protocol: Document 02/21/23 10:45 SP (Rec: 02/21/23 11:41 SP [id number]) OP-PT Subjective Patient Comments Patient Comments Pt reports better today. Some soreness little numb feeling R posterolateral R hip only today. PT-OP-H Neuro Start: 01/30/23 21:33 Freq: Status: Active Protocol: Document 01/31/23 08:04 LRN (Rec: 01/31/23 08:55 LRN [id number]) Sensation Evaluation Gross Sensation Gross Sensation WNL Deep Tendon Reflex & Clonus Assessment Deep Tendon Reflex Bilateral Achilles Deep Tendon Reflex 2+ Normal Bilateral Patellar Deep Tendon Reflex 2+ Normal PT-OP-J Posture/Palpation/Skin Start: 01/30/23 21:33 Freq: Status: Active Protocol: Document 02/03/23 09:36 LRN (Rec: 02/03/23 10:30 LRN [id number]) Posture Evaluation Position Standing L-Spine Posture Increased Lordosis Pelvis Posture Anteriorly Tilted Palpation Assessment Location Medial Malleolus Palpation Location Medial Malleolus Palpation Details Equal position in supine R LE long in long sit. Leg length measure 92.5 cm bilaterally. BAck Palpation Location R QL and L Rhomboids Palpation Findings Muscle Guarding PT-OP-K Range of Motion Start: 01/30/23 21:33 Freq: Status: Active Protocol: Document 02/17/23 10:35 LRN (Rec: 02/17/23 11:21 LRN [id number]) Hip Goniometric Range of Motion Hip Right Passive Testing Position Supine Straight Leg Raise 68 Internal Rotation 25 External Rotation 45 Comments Pain behind upper calf. Left Passive Testing Position Supine Straight Leg Raise 70 Internal Rotation 25 External Rotation 70 Comments Pain behind knee & upper calf. PT-OP-L Special Tests Start: 01/30/23 21:33 Freq: Status: Active Protocol: Document 02/03/23 09:36 LRN (Rec: 02/03/23 10:30 LRN [id number]) Special Tests Hip Special Tests Canela's Compression Test Results - bilaterally Log Roll Test Test Results - bilaterally JERICA Test Results - bilaterally Comments Anterior hip tightness R>L. PT-OP-M Strength Start: 01/30/23 21:33 Freq: Status: Active Protocol: Document 01/31/23 08:04 LRN (Rec: 01/31/23 08:55 LRN [id number]) Hip Strength Hip Manual Muscle Testing Right Flexion (L2) 5 Normal Extension (S1) 5 Normal Abduction 5 Normal Adduction 5 Normal External Rotation 5 Normal Internal Rotation 5 Normal Left Flexion (L2) 5 Normal Abduction 5 Normal Adduction 5 Normal External Rotation 5 Normal Internal Rotation 4+ Good+ Comments Pain in L hip with hip IR MMT. PT-OP-Q Treatments Start: 01/30/23 21:33 Freq: Status: Active Protocol: Document 02/21/23 10:45 SP (Rec: 02/21/23 11:41 SP [id number]) Therapeutic Exercises Sitting Exercises neural glide Sitting Exercise Name added for home Side right Reps/Minutes 3 min (ed set up, performance) Comments cued straight back, hip hinge then APs with head same direction Standing Exercises Postural training Standing Exercise Name review back to wall Reps/Minutes 4' Comments cued TA/PPT neutral LS, chin nod and CS ext neutral- states weird. Therapeutic Activity Therapeutic Activity body mechanics Comments squat milk pickup driver items, seated posture, vacuuming, shoveling. Self-Care/Home Management Treatment Education Patient Education Body Mechanics,Home Exercise Program,Joint Protection, Posture,Safety Other Education Most treatment time spent anatomy and education mechanics with use HOs for sleeping side with pillow support (see HO) , sitting more plumline desktop good/ laptop elevate neutral spine, standing, squat to milk pickup driver items, ADLs/chores/yrd work TA equal WB use LE press shovel into ground, wt shift pivot with items carrying for back health. Discussion moving furniture so recliner with back support of towel and facing TV straight on for neutral spine neck and back- stated suggested too. Better understanding PT-OP-T Assessment and Plan Start: 01/30/23 21:33 Freq: Status: Active Protocol: Document 02/21/23 10:45 SP (Rec: 02/21/23 11:41 SP [id number]) Physical Therapy Assessment Goals Three Impairment Decr'd ability to sit except for in his recliner due to low back/RLE pain Short Term Goal (STG) Pt will be educated in proper sit and standing posture. STG Duration 02/21/23 (02/03/23: MET GOAL ) Penitentiary Goal (LTG) Pt will be able to sit without restriction in chair type without LBP/RLE pain. LTG Duration 05/01/23 Two Impairment LB/RLE > LE Pain limiting prior level of activity Impairment Pain limits movement of jogging (last jogged a month ago) 3 miles, and sprinting 100 yds (TM 10 minutes). Short Term Goal (STG) Pt will be able to sprint for short distances or walk on TM 10' 02/15/23: Pt hasn't jogged, did do some hiking on trails and had some SI pain when step up motions. STG Duration 03/02/23 updated 02/15/23 Streetcar Operator Goal (LTG) Pt will be able to jog just under 1 mile without back or LE pain. LTG Duration 05/01/23 One Impairment Lacks appropriate self care HEP Short Term Goal (STG) Pt will be educated in proper body mechanics. STG Duration 02/21/23 Penitentiary Goal (LTG) Pt will be independent in self care HEP of core stab and trunk/LE neural and LE mobility exercises. 02/03/23: HEP: Hip R ER/L IR stretch 02/15/23: added resisted clamshell and single repeated step ups for pirirformis &glut drive fac- reports feel better R hip. 02/17/23: HEP: DEUCE. Reissued Anurag stretch for hold time. LTG Duration 05/01/23 progressed 02/15/23 Assessment Summary Assessment Pt report working on mechanics and explaination very helpful with HOs support. Will use pillows for sidesleeping good feedback support in PT, use towel roll seated and even with neutral pelvis standing. Good response no adverse neural glide and posture wall support. Physical Therapy Plan Frequency and Duration Frequency of Treatment 2x/Week Plan of Care Start Date 01/31/23 Plan of Care End Date 05/01/23 Therapeutic Interventions Therapeutic Interventions Home Exercise Program,Joint Mobilizations,Manual Therapy, Neuromuscular Re-education, Patient/Caregiver Education, Self-Care/Home Management,Soft Tissue Mobilization, Therapeutic Activities, Therapeutic Exercises Modalities Cold Pack/Ice Massage,Electric Stimulation,Hot Packs, Traction- Mechanical, Ultrasound Next Visit Focus/Plan Next Note Type Treatment Note Next Visit Plan Next tx: Review clamshell on side & step ups added. Pt education in body mechanics training for yard work and back health. Add LE neural glides. Assess trunk strength. POC: Core/SI stabilization, neural glides to reduce tension, pt education in body mechanics training, progress towards jogging/running and to improve sitting tolerance.
--- NOTE | 2023-02-23 11:30 | PT.OTN ---
Current Diagnoses Lumbago with sciatica, unspecified side (02/23/23) Abnormal posture (02/23/23) Physical Therapy Treatment Note PT-OP-A Visit Information Start: 01/30/23 21:33 Freq: Status: Active Protocol: Document 02/23/23 10:48 SP (Rec: 02/23/23 11:42 SP [id number]) Out-Patient Physical Therapy Visit Information Visit Information Visit Type Treatment Note Visit Start Time 10:48 Visit Stop Time 11:30 Total Visit Minutes 42 Visit Number 7 Number of [employer]TRY [employer] WORKER Visits 2 Evaluation Information Evaluation Date 01/31/23 Precautions Precautions None PT-OP-B Current Condition Start: 01/30/23 21:33 Freq: Status: Active Protocol: Document 01/31/23 08:04 LRN (Rec: 01/31/23 08:55 LRN [id number]) Current Condition History of Current Condition Onset Date 11/2022 Current Complaints Back pain occasional LE pain, occasional R>L LE pain/ numbness. History of Current Condition Pt states 2 weeks ago he was stepping on shovel (to dig) and his back & R LE hurt intensely. Pt reports back and R>L LE pain that radiates down the entire leg into the ankle. States R leg is kind of numb with sometimes a dull ache pain. Occasionally leg feels weak and tired. States as long as he is sitting in his recliner he is fine. States lately he has been doing more sitting and reading . Stopped taking Meloxicam 4- 5 days ago because pain is tolerable. Developmental History Developmental History Early November 2022 he had front thigh and hamstring RLE pain and was given hamstring stretches that alleviated the pain until the recent onset. Pt reports history 20 yrs ago he had back pain from lifting something heavy. He had PT for 2 months that resolved his pain. His activity level is high ever winter because plays baseball on a [employer] league. Treatment Goals Patient/Caregiver Goals Pt goal is: pain to stop and to be able to run a mile and sprint 800 ft, sit in chairs other than recliner, return to active sport of baseball play for next season. Personal Factors Other Personal Factors That May Effect History of LBP injury 20 yrs Therapy/Recovery ago with onset of R front thigh and hamstring pain 2022. Pt is active with exercising due to being on a [employer] league. PT-OP-C Subjective Start: 01/30/23 21:33 Freq: Status: Active Protocol: Document 02/23/23 10:48 SP (Rec: 02/23/23 11:42 SP [id number]) OP-PT Subjective Patient Comments Patient Comments Pt reports back and leg doing better. Hardly had any pain R leg, woke up this am and stiffness across LB but 15 min up moving around went away. Pt stated wondered if should return yoga (does in winter in [place]). PT-OP-H Neuro Start: 01/30/23 21:33 Freq: Status: Active Protocol: Document 01/31/23 08:04 LRN (Rec: 01/31/23 08:55 LRN [id number]) Sensation Evaluation Gross Sensation Gross Sensation WNL Deep Tendon Reflex & Clonus Assessment Deep Tendon Reflex Bilateral Achilles Deep Tendon Reflex 2+ Normal Bilateral Patellar Deep Tendon Reflex 2+ Normal PT-OP-J Posture/Palpation/Skin Start: 01/30/23 21:33 Freq: Status: Active Protocol: Document 02/03/23 09:36 LRN (Rec: 02/03/23 10:30 LRN [id number]) Posture Evaluation Position Standing L-Spine Posture Increased Lordosis Pelvis Posture Anteriorly Tilted Palpation Assessment Location Medial Malleolus Palpation Location Medial Malleolus Palpation Details Equal position in supine R LE long in long sit. Leg length measure 92.5 cm bilaterally. BAck Palpation Location R QL and L Rhomboids Palpation Findings Muscle Guarding PT-OP-K Range of Motion Start: 01/30/23 21:33 Freq: Status: Active Protocol: Document 02/17/23 10:35 LRN (Rec: 02/17/23 11:21 LRN [id number]) Hip Goniometric Range of Motion Hip Right Passive Testing Position Supine Straight Leg Raise 68 Internal Rotation 25 External Rotation 45 Comments Pain behind upper calf. Left Passive Testing Position Supine Straight Leg Raise 70 Internal Rotation 25 External Rotation 70 Comments Pain behind knee & upper calf. PT-OP-L Special Tests Start: 01/30/23 21:33 Freq: Status: Active Protocol: Document 02/03/23 09:36 LRN (Rec: 02/03/23 10:30 LRN [id number]) Special Tests Hip Special Tests Canela's Compression Test Results - bilaterally Log Roll Test Test Results - bilaterally JERICA Test Results - bilaterally Comments Anterior hip tightness R>L. PT-OP-M Strength Start: 01/30/23 21:33 Freq: Status: Active Protocol: Document 01/31/23 08:04 LRN (Rec: 01/31/23 08:55 LRN [id number]) Hip Strength Hip Manual Muscle Testing Right Flexion (L2) 5 Normal Extension (S1) 5 Normal Abduction 5 Normal Adduction 5 Normal External Rotation 5 Normal Internal Rotation 5 Normal Left Flexion (L2) 5 Normal Abduction 5 Normal Adduction 5 Normal External Rotation 5 Normal Internal Rotation 4+ Good+ Comments Pain in L hip with hip IR MMT. PT-OP-Q Treatments Start: 01/30/23 21:33 Freq: Status: Active Protocol: Document 02/23/23 10:48 SP (Rec: 02/23/23 11:42 SP [id number]) Therapeutic Exercises Supine Exercises bug Supine Exercise Name Progressed: BLE extended lift/ lower Side bilateral Resistance good TA/PPT Reps/Minutes 3x5 reps Comments good bug easy, progressed DL lift lower bent easy- gd extended Sidelying Exercises clamshell Sidelying Exercise Name reviewed HEP Side bilateral Resistance TB #3 loop around thighs (blue next tx) Reps/Minutes 1 min Comments improved self corrections trunk/range no rock back Sitting Exercises neural glide Sitting Exercise Name reviewed: supine better response than seated Side right Reps/Minutes 3 min (ed set up, performance) Comments extra time little further range to Standing Exercises HS stretch Standing Exercise Name end tx: trialed hip hinge stretch Side right Equipment Used cued contact table for stability support Reps/Minutes 20SH Comments reported the best position stretch response Yoga Standing Exercise Name downward dog, warrior pose, triangle Reps/Minutes 2x 15 SH each Comments good feedback stretch, noticed step ups Standing Exercise Name reviewed HEP: single repeated Side bilateral Equipment Used no rail needed Reps/Minutes x10 each LE Comments good form painfree Other Exercises foam Other Exercise Name initiated as another option to know Equipment Used long sitting foam roll HS and calf Reps/Minutes 20 sec Comments good response, cued for set up and perform self STMs Other Exercise Name seated today: calf Side bilateral Resistance 1. seated rolling pin calf vs sustea Equipment Used 2. long sit: sustained pressure w/ AP Reps/Minutes 1 min Comments good feedback response less tightness Neuro Re-Education Treatment Balance Activities SLS Details reviewed self HEP Reps/Duration 60 each LE Comments improved elongaged posture over stance LE. PT-OP-T Assessment and Plan Start: 01/30/23 21:33 Freq: Status: Active Protocol: Document 02/23/23 10:48 SP (Rec: 02/23/23 11:42 SP [id number]) Physical Therapy Assessment Goals Three Impairment Decr'd ability to sit except for in his recliner due to low back/RLE pain Short Term Goal (STG) Pt will be educated in proper sit and standing posture. STG Duration 02/21/23 (02/03/23: MET GOAL ) Senior Living Goal (LTG) Pt will be able to sit without restriction in chair type without LBP/RLE pain. LTG Duration 05/01/23 Two Impairment LB/RLE > LE Pain limiting prior level of activity Impairment Pain limits movement of jogging (last jogged a month ago) 3 miles, and sprinting 100 yds (TM 10 minutes). Short Term Goal (STG) Pt will be able to sprint for short distances or walk on TM 10' 02/15/23: Pt hasn't jogged, did do some hiking on trails and had some SI pain when step up motions. STG Duration 03/02/23 updated 02/15/23 Senior Living Goal (LTG) Pt will be able to jog just under 1 mile without back or LE pain. LTG Duration 05/01/23 One Impairment Lacks appropriate self care HEP Short Term Goal (STG) Pt will be educated in proper body mechanics. STG Duration 02/21/23 Type Inspector Goal (LTG) Pt will be independent in self care HEP of core stab and trunk/LE neural and LE mobility exercises. 02/03/23: HEP: Hip R ER/L IR stretch 02/15/23: added resisted clamshell and single repeated step ups for pirirformis &glut drive fac- reports feel better R hip. 02/17/23: HEP: DEUCE. Reissued Anurag stretch for hold time. LTG Duration 05/01/23 progressed 02/15/23 Assessment Summary Assessment Pt good response to HEP review , improved stabililty step ups no contact or cues. Good self corrections form clamshells. Incorportated for knowledge foam rolling, rolling pin, yoga (past did in winter) for flexibilty and improved mobility. Pt stated felt alot more mobility end tx, does feel able stretch HS and feels them but good. Pt able progress core LE lift/lower self and good form progression with TA fac painfree. Physical Therapy Plan Frequency and Duration Frequency of Treatment 2x/Week Plan of Care Start Date 01/31/23 Plan of Care End Date 05/01/23 Therapeutic Interventions Therapeutic Interventions Home Exercise Program,Joint Mobilizations,Manual Therapy, Neuromuscular Re-education, Patient/Caregiver Education, Self-Care/Home Management,Soft Tissue Mobilization, Therapeutic Activities, Therapeutic Exercises Modalities Cold Pack/Ice Massage,Electric Stimulation,Hot Packs, Traction- Mechanical, Ultrasound Next Visit Focus/Plan Next Note Type Treatment Note Next Visit Plan Next tx: progress return to run. Progressing well core/ flexibililty. POC: progress towards jogging /running and to improve sitting tolerance.
--- NOTE | 2023-02-28 10:57 | PT-OP ANOTE ---
Per phone conversation the pt states he didn't realize he had an appt, must have forgotten to put it in his phone to alert him. Pt states he is doing pretty good, hardly has pain. Encouraged pt to continue his HEP. Suggested he call for cancellations this week and next week, otherwise would see pt in a few weeks for possible DC if he continues to do well.
--- NOTE | 2023-03-21 17:59 | PT.OTN ---
Current Diagnoses Lumbago with sciatica, unspecified side (03/21/23) Abnormal posture (03/21/23) Physical Therapy Treatment Note PT-OP-A Visit Information Start: 01/30/23 21:33 Freq: Status: Active Protocol: Document 03/21/23 11:24 LRN (Rec: 03/21/23 12:17 LRN [id number]) Out-Patient Physical Therapy Visit Information Visit Information Visit Type Treatment Note Visit Start Time 11:24 Visit Stop Time 12:13 Total Visit Minutes 49 Visit Number 8 Evaluation Information Evaluation Date 01/31/23 Precautions Precautions None PT-OP-B Current Condition Start: 01/30/23 21:33 Freq: Status: Active Protocol: Document 01/31/23 08:04 LRN (Rec: 01/31/23 08:55 LRN [id number]) Current Condition History of Current Condition Onset Date 11/2022 Current Complaints Back pain occasional LE pain, occasional R>L LE pain/ numbness. History of Current Condition Pt states 2 weeks ago he was stepping on shovel (to dig) and his back & R LE hurt intensely. Pt reports back and R>L LE pain that radiates down the entire leg into the ankle. States R leg is kind of numb with sometimes a dull ache pain. Occasionally leg feels weak and tired. States as long as he is sitting in his recliner he is fine. States lately he has been doing more sitting and reading . Stopped taking Meloxicam 4- 5 days ago because pain is tolerable. Developmental History Developmental History Early November 2022 he had front thigh and hamstring RLE pain and was given hamstring stretches that alleviated the pain until the recent onset. Pt reports history 20 yrs ago he had back pain from lifting something heavy. He had PT for 2 months that resolved his pain. His activity level is high ever winter because plays baseball on a [email or web address] league. Treatment Goals Patient/Caregiver Goals Pt goal is: pain to stop and to be able to run a mile and sprint 800 ft, sit in chairs other than recliner, return to active sport of baseball play for next season. Personal Factors Other Personal Factors That May Effect History of LBP injury 20 yrs Therapy/Recovery ago with onset of R front thigh and hamstring pain 2022. Pt is active with exercising due to being on a [email or web address] softball league. PT-OP-C Subjective Start: 01/30/23 21:33 Freq: Status: Active Protocol: Document 03/21/23 11:24 LRN (Rec: 03/21/23 12:17 LRN [id number]) OP-PT Subjective Patient Comments Patient Comments No LBP, occasionally in R buttock and hamstring. Sometimes walking gets weakness in R hamstring area. Has been running 1/4 mile every other day since last week w/o onset of back or RLE pain. PT-OP-H Neuro Start: 01/30/23 21:33 Freq: Status: Active Protocol: Document 01/31/23 08:04 LRN (Rec: 01/31/23 08:55 LRN [id number]) Sensation Evaluation Gross Sensation Gross Sensation WNL Deep Tendon Reflex & Clonus Assessment Deep Tendon Reflex Bilateral Achilles Deep Tendon Reflex 2+ Normal Bilateral Patellar Deep Tendon Reflex 2+ Normal PT-OP-J Posture/Palpation/Skin Start: 01/30/23 21:33 Freq: Status: Active Protocol: Document 02/03/23 09:36 LRN (Rec: 02/03/23 10:30 LRN [id number]) Posture Evaluation Position Standing L-Spine Posture Increased Lordosis Pelvis Posture Anteriorly Tilted Palpation Assessment Location Medial Malleolus Palpation Location Medial Malleolus Palpation Details Equal position in supine R LE long in long sit. Leg length measure 92.5 cm bilaterally. BAck Palpation Location R QL and L Rhomboids Palpation Findings Muscle Guarding PT-OP-K Range of Motion Start: 01/30/23 21:33 Freq: Status: Active Protocol: Document 02/17/23 10:35 LRN (Rec: 02/17/23 11:21 LRN [id number]) Hip Goniometric Range of Motion Hip Right Passive Testing Position Supine Straight Leg Raise 68 Internal Rotation 25 External Rotation 45 Comments Pain behind upper calf. Left Passive Testing Position Supine Straight Leg Raise 70 Internal Rotation 25 External Rotation 70 Comments Pain behind knee & upper calf. PT-OP-L Special Tests Start: 01/30/23 21:33 Freq: Status: Active Protocol: Document 02/03/23 09:36 LRN (Rec: 02/03/23 10:30 LRN [id number]) Special Tests Hip Special Tests Canela's Compression Test Results - bilaterally Log Roll Test Test Results - bilaterally JERICA Test Results - bilaterally Comments Anterior hip tightness R>L. PT-OP-M Strength Start: 01/30/23 21:33 Freq: Status: Active Protocol: Document 01/31/23 08:04 LRN (Rec: 01/31/23 08:55 LRN [id number]) Hip Strength Hip Manual Muscle Testing Right Flexion (L2) 5 Normal Extension (S1) 5 Normal Abduction 5 Normal Adduction 5 Normal External Rotation 5 Normal Internal Rotation 5 Normal Left Flexion (L2) 5 Normal Abduction 5 Normal Adduction 5 Normal External Rotation 5 Normal Internal Rotation 4+ Good+ Comments Pain in L hip with hip IR MMT. PT-OP-Q Treatments Start: 01/30/23 21:33 Freq: Status: Active Protocol: Document 03/21/23 11:24 LRN (Rec: 03/21/23 12:17 LRN [id number]) Therapeutic Exercises Supine Exercises Double leg lifts Supine Exercise Name Double leg lifts Reps/Minutes Intermittent between bug ex and with review for TA tightening Hamstring stretch Supine Exercise Name Hamstring stretch Side bilateral Equipment Used Strap to help hold leg. Reps/Minutes 10 SH f/b 10 ankle pumps x 3. bug Supine Exercise Name Progressed: BLE extended lift/ lower Side bilateral Resistance good TA/PPT Reps/Minutes 1' Comments good bug easy, progressed DL lift lower bent easy- gd extended Manual Therapy Treatment Manual Techniques Sacral Balancing Type Sacral balancing Body Location Sacrum Body Position Prone Comments Decreased mob of R sacral sulcus inferior glide & PA, decreased L TAYA, ?Isch tub. Self-Care/Home Management Treatment Education Patient Education Body Mechanics Other Education Pt education, discussion, and practice of proper sit and standing posture, and proper body mechanics with daily activities. Activities Self-Care/Home Management Activities Issued and reviewed handouts for proper posturing standing and stress on low back in different positions, and proper body mechanics with daily activities. PT-OP-T Assessment and Plan Start: 01/30/23 21:33 Freq: Status: Active Protocol: Document 03/21/23 11:24 LRN (Rec: 03/21/23 12:17 LRN [id number]) Physical Therapy Assessment Goals Three Impairment Decr'd ability to sit except for in his recliner due to low back/RLE pain Short Term Goal (STG) Pt will be educated in proper sit and standing posture. STG Duration 02/21/23 (02/03/23: MET GOAL ) Half-Way Goal (LTG) Pt will be able to sit without restriction in chair type without LBP/RLE pain. 03/21/23: Able to sit in car 3 hrs w/o onset of LBP or RLE. LTG Duration 05/01/23 (03/21/23: MET GOAL ) Two Impairment LB/RLE > LE Pain limiting prior level of activity Impairment Pain limits movement of jogging (last jogged a month ago) 3 miles, and sprinting 100 yds (TM 10 minutes). Short Term Goal (STG) Pt will be able to sprint for short distances or walk on TM 10' 02/15/23: Pt hasn't jogged, did do some hiking on trails and had some SI pain when step up motions. STG Duration 03/02/23 updated 02/15/23 Half-Way Goal (LTG) Pt will be able to jog just under 1 mile without back or LE pain. 03/21/23: Started jogging last Tues 1/4 mile w/o pain. Jogging every other day. LTG Duration 05/01/23 progressed 03/21/23. One Impairment Lacks appropriate self care HEP Short Term Goal (STG) Pt will be educated in proper body mechanics. STG Duration 02/21/23 (03/21/23: MET GOAL) Half-Way Goal (LTG) Pt will be independent in self care HEP of core stab and trunk/LE neural and LE mobility exercises. 02/03/23: HEP: Hip R ER/L IR stretch 02/15/23: added resisted clamshell and single repeated step ups for pirirformis &glut drive fac- reports feel better R hip. 02/17/23: HEP: DEUCE. Reissued Anurag stretch for hold time. LTG Duration 05/01/23 progressed 02/15/23 Assessment Summary Assessment Initially pt seen for lumbar strain resolution, with ms tightness of low back tightness > on R resulting in RLE long in long sit but equal in supine. PSLR is 70 deg's bilaterally. C/O R hamstring weakness and pain in buttock and lateral thigh presents with sciatic n symptoms. He has improved overall with pt able to tolerate sitting for 3 hrs and running 1/4 mile without onset of pain. Pelvic instability occasionally is present per symptom complaints . Physical Therapy Plan Frequency and Duration Frequency of Treatment 2x/Week Plan of Care Start Date 01/31/23 Plan of Care End Date 05/01/23 Next Visit Focus/Plan Next Note Type Treatment Note Next Visit Plan Next tx: Assess sciatic pain onset response to sacral balancing. Check TM run if pt brings running shoes to assess gait. Add hip strengthening to promote L side tightening to minimize sacral L rot. Progressing well core/ flexibililty. POC: progress jogging/running .
--- NOTE | 2023-03-28 14:36 | PT.OTN ---
Current Diagnoses Lumbago with sciatica, unspecified side (03/28/23) Abnormal posture (03/28/23) Physical Therapy Treatment Note PT-OP-A Visit Information Start: 01/30/23 21:33 Freq: Status: Active Protocol: Document 03/28/23 12:34 LRN (Rec: 03/28/23 13:19 LRN [id number]) Out-Patient Physical Therapy Visit Information Visit Information Visit Type Treatment Note Visit Start Time 12:34 Visit Stop Time 13:16 Total Visit Minutes 42 Visit Number 9 Evaluation Information Evaluation Date 01/31/23 Precautions Precautions None PT-OP-B Current Condition Start: 01/30/23 21:33 Freq: Status: Active Protocol: Document 01/31/23 08:04 LRN (Rec: 01/31/23 08:55 LRN [id number]) Current Condition History of Current Condition Onset Date 11/2022 Current Complaints Back pain occasional LE pain, occasional R>L LE pain/ numbness. History of Current Condition Pt states 2 weeks ago he was stepping on shovel (to dig) and his back & R LE hurt intensely. Pt reports back and R>L LE pain that radiates down the entire leg into the ankle. States R leg is kind of numb with sometimes a dull ache pain. Occasionally leg feels weak and tired. States as long as he is sitting in his recliner he is fine. States lately he has been doing more sitting and reading . Stopped taking Meloxicam 4- 5 days ago because pain is tolerable. Developmental History Developmental History Early November 2022 he had front thigh and hamstring RLE pain and was given hamstring stretches that alleviated the pain until the recent onset. Pt reports history 20 yrs ago he had back pain from lifting something heavy. He had PT for 2 months that resolved his pain. His activity level is high ever winter because plays baseball on a [employer] league. Treatment Goals Patient/Caregiver Goals Pt goal is: pain to stop and to be able to run a mile and sprint 800 ft, sit in chairs other than recliner, return to active sport of baseball play for next season. Personal Factors Other Personal Factors That May Effect History of LBP injury 20 yrs Therapy/Recovery ago with onset of R front thigh and hamstring pain 2022. Pt is active with exercising due to being on a [employer] softball league. PT-OP-C Subjective Start: 01/30/23 21:33 Freq: Status: Active Protocol: Document 03/28/23 12:34 LRN (Rec: 03/28/23 13:19 LRN [id number]) OP-PT Subjective Patient Comments Patient Comments Went to [place] and 2 days ago on Sat, the back started hurting down the back of the R leg more. Took a walk the day before to [employer] and thought he might need a MRI. Currently no pain down the RLE . PT-OP-H Neuro Start: 01/30/23 21:33 Freq: Status: Active Protocol: Document 01/31/23 08:04 LRN (Rec: 01/31/23 08:55 LRN [id number]) Sensation Evaluation Gross Sensation Gross Sensation WNL Deep Tendon Reflex & Clonus Assessment Deep Tendon Reflex Bilateral Achilles Deep Tendon Reflex 2+ Normal Bilateral Patellar Deep Tendon Reflex 2+ Normal PT-OP-J Posture/Palpation/Skin Start: 01/30/23 21:33 Freq: Status: Active Protocol: Document 02/03/23 09:36 LRN (Rec: 02/03/23 10:30 LRN [id number]) Posture Evaluation Position Standing L-Spine Posture Increased Lordosis Pelvis Posture Anteriorly Tilted Palpation Assessment Location Medial Malleolus Palpation Location Medial Malleolus Palpation Details Equal position in supine R LE long in long sit. Leg length measure 92.5 cm bilaterally. BAck Palpation Location R QL and L Rhomboids Palpation Findings Muscle Guarding PT-OP-K Range of Motion Start: 01/30/23 21:33 Freq: Status: Active Protocol: Document 02/17/23 10:35 LRN (Rec: 02/17/23 11:21 LRN [id number]) Hip Goniometric Range of Motion Hip Right Passive Testing Position Supine Straight Leg Raise 68 Internal Rotation 25 External Rotation 45 Comments Pain behind upper calf. Left Passive Testing Position Supine Straight Leg Raise 70 Internal Rotation 25 External Rotation 70 Comments Pain behind knee & upper calf. PT-OP-L Special Tests Start: 01/30/23 21:33 Freq: Status: Active Protocol: Document 02/03/23 09:36 LRN (Rec: 02/03/23 10:30 LRN [id number]) Special Tests Hip Special Tests Canela's Compression Test Results - bilaterally Log Roll Test Test Results - bilaterally JERICA Test Results - bilaterally Comments Anterior hip tightness R>L. PT-OP-M Strength Start: 01/30/23 21:33 Freq: Status: Active Protocol: Document 01/31/23 08:04 LRN (Rec: 01/31/23 08:55 LRN [id number]) Hip Strength Hip Manual Muscle Testing Right Flexion (L2) 5 Normal Extension (S1) 5 Normal Abduction 5 Normal Adduction 5 Normal External Rotation 5 Normal Internal Rotation 5 Normal Left Flexion (L2) 5 Normal Abduction 5 Normal Adduction 5 Normal External Rotation 5 Normal Internal Rotation 4+ Good+ Comments Pain in L hip with hip IR MMT. PT-OP-Q Treatments Start: 01/30/23 21:33 Freq: Status: Active Protocol: Document 03/28/23 12:34 LRN (Rec: 03/28/23 13:19 LRN [id number]) Therapeutic Exercises Supine Exercises Double leg lifts Supine Exercise Name Double leg lifts: bug Reps/Minutes 6' Hamstring stretch Supine Exercise Name Hamstring stretch Side bilateral Equipment Used Strap to help hold leg. Reps/Minutes 10 SH f/b 10 ankle pumps x 2. Comments Stopped due to pain onset. bug Supine Exercise Name Progressed: BLE extended lift/ lower Side bilateral Resistance good TA/PPT Reps/Minutes 6' Comments good bug easy, progressed DL lift lower bent easy- gd extended Piriformis Supine Exercise Name L hip IR hold seqence: ankle circles, 4 breaths,10 relax stretches Side right Comments Cuing for holding ankle w/ stretch and for stretch through 2 sequences Prone Exercises Glut sets. Prone Exercise Name Buttock sqeeze with core stabilized Side bilateral Reps/Minutes 5 SH x 20 DEUCE Prone Exercise Name DEUCE elbows Equipment Used 10SH x 8, f/b 2x just lift Reps/Minutes 6 min total w/ ed neutral CS/ nod, TA for spinal support and allow ROM Comments time spent TA engagement draw in for spinal support Sidelying Exercises clamshell Sidelying Exercise Name reviewed HEP Side bilateral Resistance TB #3 loop around thighs (blue next tx) Reps/Minutes 10' Comments improved self corrections trunk/range no rock back Standing Exercises Gait with core tightening Standing Exercise Name Gait with core tightening Reps/Minutes 30' x 8 Self-Care/Home Management Treatment Education Other Education Educated and discussed with anatomy model, soft tissues, muscles and nerves that could result in sciatic pain. Discussed posturing and positioning that could elicit Sciatic pain. Pt discussion on ex that creates pain (LE neural glide in supin) and reinforced not to work into pain. Pt questions popping of hip and it was reinforced what discussion the PLATE DEVELOPER had, was not to perform with popping. Activities Self-Care/Home Management Activities Pt to correct sleeping posture at nighttime with pillow between legs or more pillow to better support the RLE. Pt to work on stabilizing the core with activities. PT-OP-T Assessment and Plan Start: 01/30/23 21:33 Freq: Status: Active Protocol: Document 03/28/23 12:34 LRN (Rec: 03/28/23 13:19 LRN [id number]) Physical Therapy Assessment Goals Two Impairment LB/RLE > LE Pain limiting prior level of activity Impairment Pain limits movement of jogging (last jogged a month ago) 3 miles, and sprinting 100 yds (TM 10 minutes). Short Term Goal (STG) Pt will be able to sprint for short distances or walk on TM 10' 02/15/23: Pt hasn't jogged, did do some hiking on trails and had some SI pain when step up motions. STG Duration 03/02/23 updated 02/15/23 Retirement Goal (LTG) Pt will be able to jog just under 1 mile without back or LE pain. 03/21/23: Started jogging last Tu 1/4 mile w/o pain. Jogging every other day. LTG Duration 05/01/23 progressed 03/21/23. One Impairment Lacks appropriate self care HEP Short Term Goal (STG) Pt will be educated in proper body mechanics. STG Duration 02/21/23 (03/21/23: MET GOAL) Cafeteria Table Attendant Goal (LTG) Pt will be independent in self care HEP of core stab and trunk/LE neural and LE mobility exercises. 02/03/23: HEP: Hip R ER/L IR stretch 02/15/23: added resisted clamshell and single repeated step ups for pirirformis &glut drive fac- reports feel better R hip. 02/17/23: HEP: DEUCE. Reissued Anurag stretch for hold time. LTG Duration 05/01/23 progressed 02/15/23 Assessment Summary Assessment Unable to tell if sacral balancing was helpful due to sciatic pain onset a few days ago after hiking and using a 1 -2 foam on bed to sleep at night. With gait pt has a feeling of tightness at the R PSIS and no posterior leg pain . In prone the pt appears to have sacral rot left. Physical Therapy Plan Frequency and Duration Frequency of Treatment 2x/Week Plan of Care Start Date 01/31/23 Plan of Care End Date 05/01/23 Next Visit Focus/Plan Next Note Type Treatment Note Next Visit Plan Next tx: Assess sciatic pain with change in nighttime positioning and > core stabilization. Check TM run if pt brings running shoes to assess gait. Add hip strengthening to promote L side tightening to minimize sacral L rot. Progressing well core/ flexibililty. POC: progress jogging/running .
--- NOTE | 2023-04-04 16:22 | PT.OTN ---
Current Diagnoses Lumbago with sciatica, unspecified side (04/04/23) Abnormal posture (04/04/23) Physical Therapy Treatment Note PT-OP-A Visit Information Start: 01/30/23 21:33 Freq: Status: Active Protocol: Document 04/04/23 11:21 LRN (Rec: 04/04/23 12:17 LRN [id number]) Out-Patient Physical Therapy Visit Information Visit Information Visit Type Treatment Note Visit Start Time 11:21 Visit Stop Time 12:08 Total Visit Minutes 47 Visit Number 10 Evaluation Information Evaluation Date 01/31/23 Precautions Precautions None PT-OP-B Current Condition Start: 01/30/23 21:33 Freq: Status: Active Protocol: Document 01/31/23 08:04 LRN (Rec: 01/31/23 08:55 LRN [id number]) Current Condition History of Current Condition Onset Date 11/2022 Current Complaints Back pain occasional LE pain, occasional R>L LE pain/ numbness. History of Current Condition Pt states 2 weeks ago he was stepping on shovel (to dig) and his back & R LE hurt intensely. Pt reports back and R>L LE pain that radiates down the entire leg into the ankle. States R leg is kind of numb with sometimes a dull ache pain. Occasionally leg feels weak and tired. States as long as he is sitting in his recliner he is fine. States lately he has been doing more sitting and reading . Stopped taking Meloxicam 4- 5 days ago because pain is tolerable. Developmental History Developmental History Early November 2022 he had front thigh and hamstring RLE pain and was given hamstring stretches that alleviated the pain until the recent onset. Pt reports history 20 yrs ago he had back pain from lifting something heavy. He had PT for 2 months that resolved his pain. His activity level is high ever winter because plays baseball on a [employer] league. Treatment Goals Patient/Caregiver Goals Pt goal is: pain to stop and to be able to run a mile and sprint 800 ft, sit in chairs other than recliner, return to active sport of baseball play for next season. Personal Factors Other Personal Factors That May Effect History of LBP injury 20 yrs Therapy/Recovery ago with onset of R front thigh and hamstring pain 2022. Pt is active with exercising due to being on a [employer] softball league. PT-OP-C Subjective Start: 01/30/23 21:33 Freq: Status: Active Protocol: Document 04/04/23 11:21 LRN (Rec: 04/04/23 12:17 LRN [id number]) OP-PT Subjective Patient Comments Patient Comments Last couple days pain in the posterior lateral hip, but feels weakness/dullness, in the mornings. States a massager helps it to feel normal. [place] and felt fine and normal. PT-OP-H Neuro Start: 01/30/23 21:33 Freq: Status: Active Protocol: Document 01/31/23 08:04 LRN (Rec: 01/31/23 08:55 LRN [id number]) Sensation Evaluation Gross Sensation Gross Sensation WNL Deep Tendon Reflex & Clonus Assessment Deep Tendon Reflex Bilateral Achilles Deep Tendon Reflex 2+ Normal Bilateral Patellar Deep Tendon Reflex 2+ Normal PT-OP-J Posture/Palpation/Skin Start: 01/30/23 21:33 Freq: Status: Active Protocol: Document 02/03/23 09:36 LRN (Rec: 02/03/23 10:30 LRN [id number]) Posture Evaluation Position Standing L-Spine Posture Increased Lordosis Pelvis Posture Anteriorly Tilted Palpation Assessment Location Medial Malleolus Palpation Location Medial Malleolus Palpation Details Equal position in supine R LE long in long sit. Leg length measure 92.5 cm bilaterally. BAck Palpation Location R QL and L Rhomboids Palpation Findings Muscle Guarding PT-OP-K Range of Motion Start: 01/30/23 21:33 Freq: Status: Active Protocol: Document 02/17/23 10:35 LRN (Rec: 02/17/23 11:21 LRN [id number]) Hip Goniometric Range of Motion Hip Right Passive Testing Position Supine Straight Leg Raise 68 Internal Rotation 25 External Rotation 45 Comments Pain behind upper calf. Left Passive Testing Position Supine Straight Leg Raise 70 Internal Rotation 25 External Rotation 70 Comments Pain behind knee & upper calf. PT-OP-L Special Tests Start: 01/30/23 21:33 Freq: Status: Active Protocol: Document 02/03/23 09:36 LRN (Rec: 02/03/23 10:30 LRN [id number]) Special Tests Hip Special Tests Canela's Compression Test Results - bilaterally Log Roll Test Test Results - bilaterally JERICA Test Results - bilaterally Comments Anterior hip tightness R>L. PT-OP-M Strength Start: 01/30/23 21:33 Freq: Status: Active Protocol: Document 04/04/23 11:21 LRN (Rec: 04/04/23 12:17 LR [id number]) Hip Strength Hip Manual Muscle Testing Right Flexion (L2) 4+ Good+ Extension (S1) 5 Normal Abduction 5 Normal Adduction 5 Normal External Rotation 5 Normal Internal Rotation 4- Good- Left Flexion (L2) 4+ Good+ Extension (S1) 5 Normal Abduction 4+ Good+ Adduction 5 Normal External Rotation 4+ Good+ Internal Rotation 3 Fair Ankle/Foot Strength Ankle and Foot Manual Muscle Testing Right Dorsiflexion (L4) 5 Normal Plantarflexion (S1) 5 Normal Left Dorsiflexion (L4) 5 Normal Plantarflexion (S1) 5 Normal PT-OP-Q Treatments Start: 01/30/23 21:33 Freq: Status: Active Protocol: Document 04/04/23 11:21 LRN (Rec: 04/04/23 12:17 LR [id number]) Cardio Equipment Treadmill Duration (Minutes) 6 Speed 2.4>4.5 Incline 0 Other Gradual increase to speed 2.4 Therapeutic Exercises Supine Exercises 3-way hip strengthening Supine Exercise Name Hip Flex, AB, IR strengthening (checked hip ext, AD, ER) Side bilateral Piriformis Supine Exercise Name L hip IR hold seqence: ankle circles, 4 breaths,10 relax stretches Side right Reps/Minutes 60 SH x 4 during different times through therapy. Comments Cuing for holding ankle w/ stretch and for stretch through 2 sequences Standing Exercises R ankle DF w/swing thru phase Standing Exercise Name R ankle DF w/swing thru phase Side right Reps/Minutes 10x 3 Comments Cuing for Core stabilize, Much extra time for set up throughout ex Gait with core tightening Standing Exercise Name Gait with core tightening Reps/Minutes 30' x 3 Postural training Standing Exercise Name Training for standing on LLE w /hip flex/foot-toe lifts Comments Cuing/training for core stabilization during exercise. Self-Care/Home Management Treatment Education Other Education Pt educated/discussion of R ankle DF to prevent dragging of toes after toe off and during swing thru phase. Activities Self-Care/Home Management Activities Discussed pt to work on nighttime positioning to avoid placing RLE in AD/IR when in L sidelie, and to keep core tight with mvmt. PT-OP-T Assessment and Plan Start: 01/30/23 21:33 Freq: Status: Active Protocol: Document 04/04/23 11:21 LRN (Rec: 04/04/23 12:17 LRN [id number]) Physical Therapy Assessment Goals Two Impairment LB/RLE > LE Pain limiting prior level of activity Impairment Pain limits movement of jogging (last jogged a month ago) 3 miles, and sprinting 100 yds (TM 10 minutes). Short Term Goal (STG) Pt will be able to sprint for short distances or walk on TM 10' 02/15/23: Pt hasn't jogged, did do some hiking on trails and had some SI pain when step up motions. STG Duration 03/02/23 updated 02/15/23 Ct Technician Goal (LTG) Pt will be able to jog just under 1 mile without back or LE pain. 03/21/23: Started jogging last Tues 1/4 mile w/o pain. Jogging every other day. LTG Duration 05/01/23 progressed 03/21/23. One Impairment Lacks appropriate self care HEP Short Term Goal (STG) Pt will be educated in proper body mechanics. STG Duration 02/21/23 (03/21/23: MET GOAL) Ct Technician Goal (LTG) Pt will be independent in self care HEP of core stab and trunk/LE neural and LE mobility exercises. 02/03/23: HEP: Hip R ER/L IR stretch 02/15/23: added resisted clamshell and single repeated step ups for pirirformis &glut drive fac- reports feel better R hip. 02/17/23: HEP: DEUCE. Reissued Anurag stretch for hold time. LTG Duration 05/01/23 progressed 02/15/23 Assessment Summary Assessment Gait on TM: Varus lower legs with ~20 deg's EV of feet. Pt drags occasionally the L toes with swing thru phase. Pt lacks core stabilization with mvmt and nighttime positioning irritates Piriformis ( possibly nerve), causing pain from positioning. Self massage of piriformis helps to relieve the pain and feeling of weakness in the R hip. His hip strength has decreased ; therefore a HEP of hip strengthening would be helpful for pt to maintain pelvic/ core stability. Physical Therapy Plan Frequency and Duration Frequency of Treatment 2x/Week Plan of Care Start Date 01/31/23 Plan of Care End Date 05/01/23 Next Visit Focus/Plan Next Note Type Treatment Note Next Visit Plan Next tx: Assess for sciatic nerve n glide. Add hip strengthening, and review core stab for progression onto a HEP for DC.
--- NOTE | 2023-04-04 16:24 | PT.OTN ---
Current Diagnoses Lumbago with sciatica, unspecified side (04/04/23) Abnormal posture (04/04/23) Physical Therapy Treatment Note PT-OP-A Visit Information Start: 01/30/23 21:33 Freq: Status: Active Protocol: Document 04/04/23 11:21 LRN (Rec: 04/04/23 12:17 LRN [id number]) Out-Patient Physical Therapy Visit Information Visit Information Visit Type Treatment Note Visit Start Time 11:21 Visit Stop Time 12:08 Total Visit Minutes 47 Visit Number 10 Evaluation Information Evaluation Date 01/31/23 Precautions Precautions None PT-OP-B Current Condition Start: 01/30/23 21:33 Freq: Status: Active Protocol: Document 01/31/23 08:04 LRN (Rec: 01/31/23 08:55 LRN [id number]) Current Condition History of Current Condition Onset Date 11/2022 Current Complaints Back pain occasional LE pain, occasional R>L LE pain/ numbness. History of Current Condition Pt states 2 weeks ago he was stepping on shovel (to dig) and his back & R LE hurt intensely. Pt reports back and R>L LE pain that radiates down the entire leg into the ankle. States R leg is kind of numb with sometimes a dull ache pain. Occasionally leg feels weak and tired. States as long as he is sitting in his recliner he is fine. States lately he has been doing more sitting and reading . Stopped taking Meloxicam 4- 5 days ago because pain is tolerable. Developmental History Developmental History Early November 2022 he had front thigh and hamstring RLE pain and was given hamstring stretches that alleviated the pain until the recent onset. Pt reports history 20 yrs ago he had back pain from lifting something heavy. He had PT for 2 months that resolved his pain. His activity level is high ever winter because plays baseball on a [employer] league. Treatment Goals Patient/Caregiver Goals Pt goal is: pain to stop and to be able to run a mile and sprint 800 ft, sit in chairs other than recliner, return to active sport of baseball play for next season. Personal Factors Other Personal Factors That May Effect History of LBP injury 20 yrs Therapy/Recovery ago with onset of R front thigh and hamstring pain 2022. Pt is active with exercising due to being on a [employer] league. PT-OP-C Subjective Start: 01/30/23 21:33 Freq: Status: Active Protocol: Document 04/04/23 11:21 LRN (Rec: 04/04/23 12:17 LRN [id number]) OP-PT Subjective Patient Comments Patient Comments Last couple days pain in the posterior lateral hip, but feels weakness/dullness, in the mornings. States a massager helps it to feel normal. [place] and felt fine and normal. PT-OP-H Neuro Start: 01/30/23 21:33 Freq: Status: Active Protocol: Document 01/31/23 08:04 LRN (Rec: 01/31/23 08:55 LRN [id number]) Sensation Evaluation Gross Sensation Gross Sensation WNL Deep Tendon Reflex & Clonus Assessment Deep Tendon Reflex Bilateral Achilles Deep Tendon Reflex 2+ Normal Bilateral Patellar Deep Tendon Reflex 2+ Normal PT-OP-J Posture/Palpation/Skin Start: 01/30/23 21:33 Freq: Status: Active Protocol: Document 02/03/23 09:36 LRN (Rec: 02/03/23 10:30 LRN [id number]) Posture Evaluation Position Standing L-Spine Posture Increased Lordosis Pelvis Posture Anteriorly Tilted Palpation Assessment Location Medial Malleolus Palpation Location Medial Malleolus Palpation Details Equal position in supine R LE long in long sit. Leg length measure 92.5 cm bilaterally. BAck Palpation Location R QL and L Rhomboids Palpation Findings Muscle Guarding PT-OP-K Range of Motion Start: 01/30/23 21:33 Freq: Status: Active Protocol: Document 02/17/23 10:35 LRN (Rec: 02/17/23 11:21 LRN [id number]) Hip Goniometric Range of Motion Hip Right Passive Testing Position Supine Straight Leg Raise 68 Internal Rotation 25 External Rotation 45 Comments Pain behind upper calf. Left Passive Testing Position Supine Straight Leg Raise 70 Internal Rotation 25 External Rotation 70 Comments Pain behind knee & upper calf. PT-OP-L Special Tests Start: 01/30/23 21:33 Freq: Status: Active Protocol: Document 02/03/23 09:36 LRN (Rec: 02/03/23 10:30 LRN [id number]) Special Tests Hip Special Tests Canela's Compression Test Results - bilaterally Log Roll Test Test Results - bilaterally JERICA Test Results - bilaterally Comments Anterior hip tightness R>L. PT-OP-M Strength Start: 01/30/23 21:33 Freq: Status: Active Protocol: Document 04/04/23 11:21 LRN (Rec: 04/04/23 12:17 LR [id number]) Hip Strength Hip Manual Muscle Testing Right Flexion (L2) 4+ Good+ Extension (S1) 5 Normal Abduction 5 Normal Adduction 5 Normal External Rotation 5 Normal Internal Rotation 4- Good- Left Flexion (L2) 4+ Good+ Extension (S1) 5 Normal Abduction 4+ Good+ Adduction 5 Normal External Rotation 4+ Good+ Internal Rotation 3 Fair Ankle/Foot Strength Ankle and Foot Manual Muscle Testing Right Dorsiflexion (L4) 5 Normal Plantarflexion (S1) 5 Normal Left Dorsiflexion (L4) 5 Normal Plantarflexion (S1) 5 Normal PT-OP-Q Treatments Start: 01/30/23 21:33 Freq: Status: Active Protocol: Document 04/04/23 11:21 LRN (Rec: 04/04/23 12:17 LR [id number]) Cardio Equipment Treadmill Duration (Minutes) 6 Speed 2.4>4.5 Incline 0 Other Gradual increase to speed 2.4 Therapeutic Exercises Supine Exercises 3-way hip strengthening Supine Exercise Name Hip Flex, AB, IR strengthening (checked hip ext, AD, ER) Side bilateral Piriformis Supine Exercise Name L hip IR hold seqence: ankle circles, 4 breaths,10 relax stretches Side right Reps/Minutes 60 SH x 4 during different times through therapy. Comments Cuing for holding ankle w/ stretch and for stretch through 2 sequences Standing Exercises R ankle DF w/swing thru phase Standing Exercise Name R ankle DF w/swing thru phase Side right Reps/Minutes 10x 3 Comments Cuing for Core stabilize, Much extra time for set up throughout ex Gait with core tightening Standing Exercise Name Gait with core tightening Reps/Minutes 30' x 3 Postural training Standing Exercise Name Training for standing on LLE w /hip flex/foot-toe lifts Comments Cuing/training for core stabilization during exercise. Self-Care/Home Management Treatment Education Other Education Pt educated/discussion of R ankle DF to prevent dragging of toes after toe off and during swing thru phase. Activities Self-Care/Home Management Activities Discussed pt to work on nighttime positioning to avoid placing RLE in AD/IR when in L sidelie, and to keep core tight with mvmt. PT-OP-T Assessment and Plan Start: 01/30/23 21:33 Freq: Status: Active Protocol: Document 04/04/23 11:21 LRN (Rec: 04/04/23 12:17 LRN [id number]) Physical Therapy Assessment Goals Two Impairment LB/RLE > LE Pain limiting prior level of activity Impairment Pain limits movement of jogging (last jogged a month ago) 3 miles, and sprinting 100 yds (TM 10 minutes). Short Term Goal (STG) Pt will be able to sprint for short distances or walk on TM 10' 02/15/23: Pt hasn't jogged, did do some hiking on trails and had some SI pain when step up motions. STG Duration 03/02/23 updated 02/15/23 Office Support Goal (LTG) Pt will be able to jog just under 1 mile without back or LE pain. 03/21/23: Started jogging last Tues 1/4 mile w/o pain. Jogging every other day. LTG Duration 05/01/23 progressed 03/21/23. One Impairment Lacks appropriate self care HEP Short Term Goal (STG) Pt will be educated in proper body mechanics. STG Duration 02/21/23 (03/21/23: MET GOAL) Office Support Goal (LTG) Pt will be independent in self care HEP of core stab and trunk/LE neural and LE mobility exercises. 02/03/23: HEP: Hip R ER/L IR stretch 02/15/23: added resisted clamshell and single repeated step ups for pirirformis &glut drive fac- reports feel better R hip. 02/17/23: HEP: DEUCE. Reissued Anurag stretch for hold time. LTG Duration 05/01/23 progressed 02/15/23 Assessment Summary Assessment Gait on TM: Varus lower legs with ~20 deg's EV of feet. Pt drags occasionally the L toes with swing thru phase. Pt lacks core stabilization with mvmt and nighttime positioning irritates Piriformis ( possibly nerve), causing pain from positioning. Self massage of piriformis helps to relieve the pain and feeling of weakness in the R hip. His hip strength has decreased ; therefore a HEP of hip strengthening would be helpful for pt to maintain pelvic/ core stability. Physical Therapy Plan Frequency and Duration Frequency of Treatment 2x/Week Plan of Care Start Date 01/31/23 Plan of Care End Date 05/01/23 Next Visit Focus/Plan Next Note Type Treatment Note Next Visit Plan Next tx: Assess for sciatic nerve n glide. Add hip strengthening, and review core stab for progression onto a HEP for DC.
--- NOTE | 2023-07-26 08:07 | PT.OPDS ---
Current Diagnoses Lumbago with sciatica, unspecified side (04/04/23) Abnormal posture (04/04/23) Visit Care Team Role Provider Type Ben Dennis MD Family Provider Physician Primary Care Provider Specialty: Internal Medicine Pediatrics Address: [address] [place] [address], [id number] Email: [email or web address] Attending Provider Advanced Environmental Control Administrator Referring Provider Specialty: Emergency Medicine Address: [address] [place] [address], [id number] Email: [email or web address] Visit Number Visit Number 10 Discharge Summary PT-OP-B Current Condition Start: 01/30/23 21:33 Freq: Status: Active Protocol: Document 01/31/23 08:04 LRN (Rec: 01/31/23 08:55 LRN [id number]) Current Condition History of Current Condition Onset Date 11/2022 Current Complaints Back pain occasional LE pain, occasional R>L LE pain/ numbness. History of Current Condition Pt states 2 weeks ago he was stepping on shovel (to dig) and his back & R LE hurt intensely. Pt reports back and R>L LE pain that radiates down the entire leg into the ankle. States R leg is kind of numb with sometimes a dull ache pain. Occasionally leg feels weak and tired. States as long as he is sitting in his recliner he is fine. States lately he has been doing more sitting and reading . Stopped taking Meloxicam 4- 5 days ago because pain is tolerable. Developmental History Developmental History Early November 2022 he had front thigh and hamstring RLE pain and was given hamstring stretches that alleviated the pain until the recent onset. Pt reports history 20 yrs ago he had back pain from lifting something heavy. He had PT for 2 months that resolved his pain. His activity level is high ever winter because plays baseball on a [employer] league. Treatment Goals Patient/Caregiver Goals Pt goal is: pain to stop and to be able to run a mile and sprint 800 ft, sit in chairs other than recliner, return to active sport of baseball play for next season. Personal Factors Other Personal Factors That May Effect History of LBP injury 20 yrs Therapy/Recovery ago with onset of R front thigh and hamstring pain 2022. Pt is active with exercising due to being on a [employer] softball league. PT-OP-C Subjective Start: 01/30/23 21:33 Freq: Status: Active Protocol: Document 04/04/23 11:21 LRN (Rec: 04/04/23 12:17 LRN [id number]) OP-PT Subjective Patient Comments Patient Comments Last couple days pain in the posterior lateral hip, but feels weakness/dullness, in the mornings. States a massager helps it to feel normal. [place] and felt fine and normal. PT-OP-H Neuro Start: 01/30/23 21:33 Freq: Status: Active Protocol: Document 01/31/23 08:04 LRN (Rec: 01/31/23 08:55 LRN [id number]) Sensation Evaluation Gross Sensation Gross Sensation WNL Deep Tendon Reflex & Clonus Assessment Deep Tendon Reflex Bilateral Achilles Deep Tendon Reflex 2+ Normal Bilateral Patellar Deep Tendon Reflex 2+ Normal PT-OP-J Posture/Palpation/Skin Start: 01/30/23 21:33 Freq: Status: Active Protocol: Document 02/03/23 09:36 LRN (Rec: 02/03/23 10:30 LRN [id number]) Posture Evaluation Position Standing L-Spine Posture Increased Lordosis Pelvis Posture Anteriorly Tilted Palpation Assessment Location Medial Malleolus Palpation Location Medial Malleolus Palpation Details Equal position in supine R LE long in long sit. Leg length measure 92.5 cm bilaterally. BAck Palpation Location R QL and L Rhomboids Palpation Findings Muscle Guarding PT-OP-K Range of Motion Start: 01/30/23 21:33 Freq: Status: Active Protocol: Document 02/17/23 10:35 LRN (Rec: 02/17/23 11:21 LRN [id number]) Hip Goniometric Range of Motion Hip Right Passive Testing Position Supine Straight Leg Raise 68 Internal Rotation 25 External Rotation 45 Comments Pain behind upper calf. Left Passive Testing Position Supine Straight Leg Raise 70 Internal Rotation 25 External Rotation 70 Comments Pain behind knee & upper calf. PT-OP-L Special Tests Start: 01/30/23 21:33 Freq: Status: Active Protocol: Document 02/03/23 09:36 LRN (Rec: 02/03/23 10:30 LRN [id number]) Special Tests Hip Special Tests Canela's Compression Test Results - bilaterally Log Roll Test Test Results - bilaterally JERICA Test Results - bilaterally Comments Anterior hip tightness R>L. PT-OP-M Strength Start: 01/30/23 21:33 Freq: Status: Active Protocol: Document 04/04/23 11:21 LRN (Rec: 04/04/23 12:17 LRN [id number]) Hip Strength Hip Manual Muscle Testing Right Flexion (L2) 4+ Good+ Extension (S1) 5 Normal Abduction 5 Normal Adduction 5 Normal External Rotation 5 Normal Internal Rotation 4- Good- Left Flexion (L2) 4+ Good+ Extension (S1) 5 Normal Abduction 4+ Good+ Adduction 5 Normal External Rotation 4+ Good+ Internal Rotation 3 Fair Ankle/Foot Strength Ankle and Foot Manual Muscle Testing Right Dorsiflexion (L4) 5 Normal Plantarflexion (S1) 5 Normal Left Dorsiflexion (L4) 5 Normal Plantarflexion (S1) 5 Normal PT-OP-T Assessment and Plan Start: 01/30/23 21:33 Freq: Status: Active Protocol: Document 07/26/23 07:59 LRN (Rec: 07/26/23 08:07 LRN [id number]) Physical Therapy Assessment Goals Two Impairment LB/RLE > LE Pain limiting prior level of activity Impairment Pain limits movement of jogging (last jogged a month ago) 3 miles, and sprinting 100 yds (TM 10 minutes). Short Term Goal (STG) Pt will be able to sprint for short distances or walk on TM 10' 02/15/23: Pt hasn't jogged, did do some hiking on trails and had some SI pain when step up motions. STG Duration 03/02/23 updated 02/15/23 Residential Goal (LTG) Pt will be able to jog just under 1 mile without back or LE pain. 03/21/23: Started jogging last Tues 1/4 mile w/o pain. Jogging every other day. LTG Duration 05/01/23 progressed 03/21/23. One Impairment Lacks appropriate self care HEP Short Term Goal (STG) Pt will be educated in proper body mechanics. STG Duration 02/21/23 (03/21/23: MET GOAL) Residential Goal (LTG) Pt will be independent in self care HEP of core stab and trunk/LE neural and LE mobility exercises. 02/03/23: HEP: Hip R ER/L IR stretch 02/15/23: added resisted clamshell and single repeated step ups for pirirformis &glut drive fac- reports feel better R hip. 02/17/23: HEP: DEUCE. Reissued Anurag stretch for hold time. LTG Duration 05/01/23 progressed 02/15/23 Assessment Summary Assessment Pt is a 73 yo male who initially was seen on 01/31/23 for a resolving lumbar strain and possible SI dysfunction, resulting in decreased activity tolerance to jogging/ running and sitting tolerance. He was making progress towards his goals with his last attended visit 04/04/23. The pt failed to schedule further visits and he is now beyond his plan of care; therefore the pt is being discharged from PT due to lack of attendance. The pt had made good progress and was able to return to jogging. If further therapy is needed he will need a new referral to return. Physical Therapy Plan Discharge Physical Therapy Discharge Reasons No Longer Attending PT Discharge Comments See assessment above, thank you for your referral.
== END 2023-08-01 13:58 | disposition home or self-care (01) ==
LOC: PHYS 11:15
PROVIDERS: Family Provider Pediatrics; PCP Pediatrics; Referring Provider Physician Assistant; Visit Provider Physician Assistant
DX: M54.40 Lumbago with sciatica, unspecified side (principal); R29.3 Abnormal posture
CPT/HCPCS: 97110; 97140; 97161; 97535

== ENCOUNTER → 2023-04-18 15:32 | Outpatient (CLI) | payer MEDICARE, BC, SELFPAY ==
--- NOTE | 2023-04-18 15:35 | DI.RAD.S_ITS ---
PROCEDURE: XR LUMBAR SPINE 2-3V INDICATIONS: assess anatomy, right sciatica, suspect LS impinge/arthritis TECHNIQUE: 3 views of the lumbar spine were acquired. COMPARISON: None. FINDINGS: Bones: Five enr-edb-ewjqxel vertebrae are present. Normal AP alignment. Mild disc height loss L3-4. Mild anterior endplate spurs. Moderate facet arthropathy in the lower lumbar spine. No vertebral body compression fractures. No suspicious bony lesions. Soft tissues: There is an ovoid 1.2 cm calcification projecting over the upper pole of the left kidney. The visible bowel gas pattern is normal. Organ shadows are within normal limits. IMPRESSION: 1. Lower lumbar facet arthropathy may cause central canal or foraminal stenosis. 2. 1.2 cm left abdominal calcification is likely retained renal calculus. Dictated by: Destiny Easley M.D. on 04/18/2023 at 18:07 Approved by: Destiny Easley M.D. on 04/18/2023 at 18:09
== END ==
PROVIDERS: Family Provider Pediatrics; PCP Pediatrics; Referring Provider Pediatrics; Visit Provider Pediatrics
DX: M47.816 Spondylosis without myelopathy or radiculopathy, lumbar region (principal); M54.41 Lumbago with sciatica, right side; G89.29 Other chronic pain
CPT/HCPCS: 72100

== ENCOUNTER → 2023-04-21 08:53 | Outpatient (CLI) | payer MEDICARE, BC, SELFPAY ==
--- NOTE | 2023-04-21 08:54 | DI.US.S_ITS ---
PROCEDURE: US RENAL COMPLETE INDICATIONS: ABDOMEN/BACK PAIN TECHNIQUE: Real-time scanning was performed of the kidneys and bladder, with image documentation. COMPARISON: None. FINDINGS: Kidneys: Kidneys are normal in size. Right kidney measures 10.4 cm long; left kidney measures 10.6 cm long. Right renal cortical thickness is 1.5 cm; left renal cortical thickness is 1.6 cm. Renal cortical echotexture is normal. No suspicious solid mass lesions. Mild right hydronephrosis associated with additional 1.4 cm shadowing calculus. Bladder: Pre-void bladder volume is 65.2 mL. Post-void residual is 13.6 mL. Pre-void images demonstrate no intraluminal masses or stones. On pre-void images, bilateral ureteral jets are noted with color Doppler interrogation. (Of note, ureteral jets may not be detectable in up to 25% of cases due to insufficient differences in specific gravity between ureteral and bladder urine). Prostate is enlarged and elevates the bladder floor, but was not separately measured Miscellaneous: No free pelvic fluid. IMPRESSION: Mild left hydronephrosis. No obstructing lesion identified, but there is a 1.4 cm calculus in the interpolar region of the left kidney. No right hydronephrosis Prostate enlargement elevates the bladder floor. Mild postvoid residual Approved by: Mariusz Farias M.D. on 04/21/2023 at 14:45
== END ==
PROVIDERS: Family Provider Pediatrics; PCP Pediatrics; Referring Provider Pediatrics; Visit Provider Pediatrics
DX: N20.0 Calculus of kidney (principal); N13.30 Unspecified hydronephrosis; N40.0 Benign prostatic hyperplasia without lower urinary tract symptoms; M54.41 Lumbago with sciatica, right side; G89.29 Other chronic pain
CPT/HCPCS: 76770

== ENCOUNTER → 2023-04-27 13:50 | Outpatient (CLI) | payer MEDICARE, BC, SELFPAY ==
[2023-04-27 14:57] LABS: Add Manual Diff / Slide Review NO; Basophils Absolute Auto 0 /uL (0-100); Basophils Percent Auto 0.6 % (0-2); Eosinophils Absolute Auto 300 /uL (0-450); Eosinophils Percent Auto 4.4 % (2-4); Hemoglobin 13.5 g/dL (13.5-17.5); Lymphocytes Absolute Auto 1300 /uL (1100-4500); Lymphocytes Percent Auto 19.4 % (25-40); Mean Corpuscular HGB Conc 33.7 % (30-36); Mean Corpuscular Hemoglobin 30.8 PG (26-34); Mean Corpuscular Volume 91.4 fL (80-100); Monocytes Absolute Auto 700 /uL (0-900); Monocytes Percent Auto 9.8 % (3-14); Neutrophils Absolute Auto 4500 /uL (1500-7000); Neutrophils Percent Auto 65.8 % (50-75); Platelet Count 209 X10^3/uL (150-400); Red Blood Cell Count 4.38 X10^6/uL (4.5-5.9); Red Cell Distribution Width 13.9 % (11.6-14.8); White Blood Cell Count 6.8 X10^3/uL (4.5-11.0)
[2023-04-27 15:58] LABS: Alanine Aminotransferase 28 IU/L (<50); Albumin 4.4 g/dL (3.5-5.0); Albumin Globulin Ratio 1.5 (1.0-2.8); Alkaline Phosphatase 58 U/L (38-126); Aspartate Aminotransferase 56 IU/L (17-59); BUN Creatinine Ratio 17.1 (6-22); Bilirubin Total 0.7 mg/dL (0.2-1.3); Blood Urea Nitrogen 20 mg/dL (9-20); Calcium 9.8 mg/dL (8.4-10.2); Carbon Dioxide 28 mmol/L (22-32); Chloride 103 mmol/L (98-107); Estimated Glomerular Filt Rate > 60 mL/min (>60); Glucose 119 mg/dL (80-110); HEMOLYSIS 21 (0-50); Sodium 137 mmol/L (137-145); Total Protein 7.4 g/dL (6.3-8.2); Uric Acid 6.2 mg/dL (3.5-8.5)
[2023-04-27 16:28] LABS: Prostate Specific Antigen Scrn 4.38 ng/mL (0.1-4.0)
== END ==
PROVIDERS: Family Provider Pediatrics; PCP Pediatrics; Referring Provider Pediatrics; Visit Provider Pediatrics
DX: N20.0 Calculus of kidney (principal); Z12.5 Encounter for screening for malignant neoplasm of prostate; G89.29 Other chronic pain; M54.41 Lumbago with sciatica, right side; N40.0 Benign prostatic hyperplasia without lower urinary tract symptoms
CPT/HCPCS: 36415; 80053; 84550; 85025; G0103

== ENCOUNTER → 2023-05-11 13:18 | Outpatient (CLI) | payer MEDICARE, BC, SELFPAY ==
--- NOTE | 2023-05-11 13:21 | DI.MRI.S_ITS ---
PROCEDURE: MR LUMBAR SPINE WO CON INDICATIONS: eval for DDD, spurs, impinge w/rt sciatica and abnl xray TECHNIQUE: Noncontrast sagittal T1 spin echo and T2 fast echo, sagittal STIR, and T2 fast spin echo through the lumbar spine. In cases with scoliosis, additional coronal T2 fast spin echo may be performed. COMPARISON: [facility], CR, XR LUMBAR SPINE 2-3V, 04/18/2023, 15:46. FINDINGS: Image quality: Excellent. Alignment and Curvature: There is normal bony alignment. Bone Marrow: Marrow is of normal overall signal. No acute vertebral body compression fractures. Spinal Cord: Conus medullaris terminates at the T12-L1 level. Visualized cord demonstrates normal signal and size. Paraspinous Soft Tissues: No paravertebral masses. T12-L1: Facet hypertrophy. No canal stenosis or foraminal stenosis. L1-L2: Congenitally short pedicles. Facet hypertrophy. Mild canal stenosis. Mild bilateral foraminal stenosis. L2-L3: Congenitally short pedicles. Disc bulge. Facet hypertrophy. Moderate canal stenosis. Mild left foraminal stenosis. L3-L4: Congenitally short pedicles. Facet hypertrophy. Gqqc-hx-wewayqxz canal stenosis. Mild left foraminal stenosis. L4-L5: Congenitally short pedicles. Disc bulge. Facet and ligament hypertrophy. Severe canal stenosis. Mild right foraminal narrowing and mild to moderate left foraminal narrowing. L5-S1: Disc bulge with mild superimposed left paracentral disc protrusion. Mild posterior deviation of the left S1 nerve root in the left lateral recess. No central canal stenosis. Bilateral facet and ligament hypertrophy. Tkic-wb-hqgihiul bilateral foraminal narrowing. IMPRESSION: 1. Patient has underlying congenitally short pedicles. There is also underlying multilevel facet arthropathy. 2. Canal stenosis is mild at L1-L2, moderate at L2-L3, mild to moderate at L3-L4, and severe at L4-L5. 3. There is no central canal stenosis at L5-S1. However, a mild left paracentral disc protrusion mildly posteriorly deviates the left S1 nerve root in the left lateral recess. Dictated by: Jairo Juan M.D. on 05/11/2023 at 16:46 Approved by: Jairo Juan M.D. on 05/11/2023 at 16:52
== END ==
PROVIDERS: Family Provider Pediatrics; PCP Student in an Organized Health Care Education/Training Program; Referring Provider Pediatrics; Visit Provider Pediatrics
DX: M51.16 Intervertebral disc disorders with radiculopathy, lumbar region (principal); M51.17 Intervertebral disc disorders with radiculopathy, lumbosacral region; M47.26 Other spondylosis with radiculopathy, lumbar region; M47.27 Other spondylosis with radiculopathy, lumbosacral region; M48.061 Spinal stenosis, lumbar region without neurogenic claudication; M48.07 Spinal stenosis, lumbosacral region
CPT/HCPCS: 72148

== ENCOUNTER → 2023-11-10 06:43 | Outpatient (CLI) | payer MEDICARE, BC, SELFPAY ==
[2023-11-10 08:09] LABS: Appearance Urine UA CLEAR; Bilirubin Urine UA NEGATIVE (NEGATIVE); Color Urine UA YELLOW; Glucose Urine UA NEGATIVE (Negative); Ketones Urine UA NEGATIVE (NEGATIVE); Leukocyte Esterase Urine UA NEGATIVE (NEGATIVE); Nitrite Urine UA NEGATIVE (Negative); Occult Blood Urine UA NEGATIVE (Negative); Protein Urine UA NEGATIVE (Negative); Specific Gravity Urine UA 1.025 (1.000-1.035); Urobilinogen Urine UA 0.2 E.U./dL (0.2); pH Urine UA 5.5 (4.5-8.0)
[2023-11-10 08:16] LABS: Bacteria Urine Few (2-10); Culture Indicated Urine Cult Not Indicated; Mucus Urine 3+ (Negative); RBC Urine 0-1/HPF (0-5/HPF); Squamous Epithelial Cell Urine 0-1 /HPF (0-5/HPF); Urine Volume 10mL (spun); WBC Urine 1-5/HPF (0-5/HPF)
[2023-11-10 08:21] LABS: Estimated Glomerular Filt Rate > 60 mL/min (>60)
== END ==
PROVIDERS: Family Provider Pediatrics; PCP Family Medicine; Referring Provider Urology; Visit Provider Urology
DX: R97.20 Elevated prostate specific antigen [PSA] (principal); N40.1 Benign prostatic hyperplasia with lower urinary tract symptoms
CPT/HCPCS: 36415; 81001; 82565; 84153; 87086

== ENCOUNTER → 2023-11-11 08:31 | Outpatient (CLI) | payer MEDICARE, BC, SELFPAY ==
[2023-11-11 09:39] LABS: Hemoglobin A1C% w Est Avg Glu 5.3 % (4.0-6.0)
[2023-11-11 09:42] LABS: Cholesterol 197 mg/dL (140-199); HDL Cholesterol 48 mg/dL (40-60); LDL Cholesterol Calculated 127 mg/dL (<100); Triglycerides 111 mg/dL (35-150)
== END ==
PROVIDERS: Family Provider Pediatrics; PCP Family Medicine; Referring Provider Family Medicine; Visit Provider Family Medicine
DX: Z00.00 Encounter for general adult medical examination without abnormal findings (principal); N40.0 Benign prostatic hyperplasia without lower urinary tract symptoms; E78.2 Mixed hyperlipidemia; R73.09 Other abnormal glucose; Z76.89 Persons encountering health services in other specified circumstances; Z79.899 Other long term (current) drug therapy
CPT/HCPCS: 36415; 80061; 83036

== ENCOUNTER → 2023-11-11 10:48 | Outpatient (CLI) | payer MEDICARE, BC, SELFPAY ==
--- NOTE | 2023-11-11 10:49 | DI.RAD.S_ITS ---
Bone Density Report Name: PIERCE WOODS Age: 73 Sex: Male Ethnicity: White Date of : 1950 Indication: screening for osteoporosis; Referring Provider: HAYDE POSADA Study: Bone densitometry was performed. Exam Date: November 11, 2023 Accession number: [id number] Bone Density: Region BMD T-score Z-score Classification AP Spine(L1-L4) 1.048 0.0 0.7 Normal Femoral Neck (Left) 0.784 -0.6 0.3 Normal Total Hip (Left) 0.874 -0.6 -0.2 Normal Femoral Neck (Right) 0.838 -0.1 0.7 Normal Total Hip (Right) 0.952 0.1 0.3 Normal Total Hip Mean 0.913 -0.3 0.1 Normal World Health Organization criteria for BMD impression classify patients as: Normal (T-score at or above -1.0), Osteopenia (T-score between -1.0 and -2.5), or Osteoporosis (T-score at or below -2.5). 10-year Fracture Risk: FRAX not reported because: All T-scores for Spine Total, Hip Total, Femoral Neck at or above -1.0 Impression: The patient has normal bone mass. Discussion: BONE DENSITY IS ABOVE THE MINIMUM DESIRABLE LEVEL AT ALL SKELETAL SITES TESTED. This patient's bone mineral density is above the minimum desirable level (T-score -1.0 or better) at all sites measured. The patient should follow a healthful lifestyle (good nutrition with adequate calcium and vitamin D, and appropriate weight-bearing exercise). Follow-Up: Consider repeating this study in 5 years or sooner if there is some new clinical indication. Reported by: RICARDO DE SOUZA M.D. on 11/11/2023 11:14:00 AM.
== END ==
PROVIDERS: Family Provider Pediatrics; PCP Family Medicine; Referring Provider Family Medicine; Visit Provider Family Medicine
DX: Z00.00 Encounter for general adult medical examination without abnormal findings (principal); M85.89 Other specified disorders of bone density and structure, multiple sites; N40.0 Benign prostatic hyperplasia without lower urinary tract symptoms; E78.2 Mixed hyperlipidemia; R73.09 Other abnormal glucose; Z79.899 Other long term (current) drug therapy; Z76.89 Persons encountering health services in other specified circumstances
CPT/HCPCS: 36415; 77080; 80061; 83036

== ENCOUNTER → 2024-01-12 13:13 | Outpatient (CLI) | payer MEDICARE, BC, SELFPAY ==
[2024-01-12 14:44] LABS: Appearance Urine UA CLEAR; Bilirubin Urine UA NEGATIVE (NEGATIVE); Color Urine UA YELLOW; Glucose Urine UA NEGATIVE (Negative); Ketones Urine UA NEGATIVE (NEGATIVE); Leukocyte Esterase Urine UA 1+ (NEGATIVE); Nitrite Urine UA NEGATIVE (Negative); Occult Blood Urine UA 3+ (Negative); Protein Urine UA TRACE (Negative); Specific Gravity Urine UA 1.015 (1.000-1.035); Urobilinogen Urine UA 0.2 E.U./dL (0.2)
[2024-01-12 14:46] LABS: Culture Indicated Urine Specimen Cultured
[2024-01-12 14:53] LABS: Bacteria Urine None Seen; RBC Urine 10-30/HPF (0-5/HPF); Squamous Epithelial Cell Urine 1-5 /HPF (0-5/HPF); Urine Volume 10mL (spun); WBC Urine 5-10/HPF (0-5/HPF)
== END ==
PROVIDERS: Family Provider Pediatrics; PCP Family Medicine; Referring Provider Family Medicine; Visit Provider Family Medicine
DX: R94.8 Abnormal results of function studies of other organs and systems (principal); R39.9 Unspecified symptoms and signs involving the genitourinary system
CPT/HCPCS: 81001; 83883; 87086

== ENCOUNTER → 2024-01-17 07:23 | Outpatient (CLI) | payer MEDICARE, BC, SELFPAY ==
--- NOTE | 2024-01-17 07:30 | DI.US.S_ITS ---
PROCEDURE: US ABDOMEN LIMITED INDICATIONS: Echogenicities noted in liver/pancreas on CT TECHNIQUE: Real-time scanning was performed of the abdominal and retroperitoneal organs, with image documentation. COMPARISON: Outside Facility, RG, CT IVP, 12/10/2023, 17:39. FINDINGS: Liver: Liver is normal in size and homogeneous in echotexture. No sonographic evidence of a mass. Gallbladder: No gallstones. No wall thickening. No pericholecystic edema. Negative sonographic Martinez's sign. Biliary ducts: Intrahepatic bile ducts are non-dilated. Common bile duct caliber measures 4.3 mm. Normal is 6-7 mm or less in diameter, or 10 mm or less post-cholecystectomy. Pancreas: Visualized portions of the pancreas are sonographically normal. Miscellaneous: No free abdominal fluid. IMPRESSION: Normal right upper quadrant ultrasound. No sonographic evidence of a solid liver mass. If there is high clinical suspicion, consider cross-sectional imaging (CT or MRI liver mass protocol) for further evaluation. Dictated by: Ramana Shell M.D. on 01/17/2024 at 17:13 Approved by: Ramana Shell M.D. on 01/17/2024 at 17:17
== END ==
PROVIDERS: Family Provider Pediatrics; PCP Family Medicine; Referring Provider Family Medicine; Visit Provider Family Medicine
DX: R93.2 Abnormal findings on diagnostic imaging of liver and biliary tract (principal); Q45.3 Other congenital malformations of pancreas and pancreatic duct
CPT/HCPCS: 76705

== ENCOUNTER → 2024-02-03 10:06 | Outpatient (CLI) | payer MEDICARE, BC, SELFPAY ==
--- NOTE | 2024-02-03 10:07 | DI.RAD.S_ITS ---
PROCEDURE: XR FEMUR LT MIN 2V INDICATIONS: post-op persistent left thigh anterior pain TECHNIQUE: 4 views of the femur were acquired. COMPARISON: None. FINDINGS: Bones: No fractures or dislocations. No suspicious bony lesions. Soft tissues: No suspicious soft tissue calcifications or masses. IMPRESSION: No acute bony abnormality. Dictated by: Jan Reyez M.D. on 02/03/2024 at 11:44 Approved by: Jan Reyez M.D. on 02/03/2024 at 11:44
== END ==
PROVIDERS: PCP Family Medicine; Referring Provider Family Medicine; Visit Provider Family Medicine
DX: M79.652 Pain in left thigh (principal); M54.16 Radiculopathy, lumbar region; R82.998 Other abnormal findings in urine
CPT/HCPCS: 73552; 87086

== ENCOUNTER → 2024-02-03 10:34 | Outpatient (CLI) | payer MEDICARE, BC, SELFPAY | PROVIDERS: PCP Family Medicine; Visit Provider Family Medicine | DX: R82.998 Other abnormal findings in urine (principal) | CPT/HCPCS: 87086 ==

== ENCOUNTER → 2024-03-07 08:39 | Outpatient (CLI) | payer MEDICARE, BC, SELFPAY ==
--- NOTE | 2024-03-07 08:44 | DI.US.S_ITS ---
PROCEDURE: US RENAL COMPLETE INDICATIONS: kidney stone TECHNIQUE: Real-time scanning was performed of the kidneys and bladder, with image documentation. COMPARISON: Outside Facility, , CT IVP, 12/10/2023, 17:39. [facility], , US RENAL COMPLETE, 04/21/2023, 9:00. FINDINGS: Kidneys: Kidneys are normal in size. Right kidney measures 10.2 cm long; left kidney measures 10.6 cm long. Right renal cortical thickness is 1.5 cm; left renal cortical thickness is 1.3 cm. Renal cortical echotexture is normal. No hydronephrosis or nephrolithiasis. No suspicious solid mass lesions. Bladder: Pre-void bladder volume is 91 mL. Post-void residual was not obtained, patient voided prior to the exam. Pre-void images demonstrate no intraluminal masses or stones. On pre-void images, bilateral ureteral jets are noted with color Doppler interrogation. (Of note, ureteral jets may not be detectable in up to 25% of cases due to insufficient differences in specific gravity between ureteral and bladder urine). Miscellaneous: No free pelvic fluid. IMPRESSION: Normal appearance of the kidneys. No hydronephrosis or stones are identified. Dictated by: Jan Reyez M.D. on 03/07/2024 at 14:56 Approved by: Jan Reyez M.D. on 03/07/2024 at 14:58
== END ==
PROVIDERS: PCP Family Medicine; Referring Provider Family Medicine; Visit Provider Family Medicine
DX: N20.0 Calculus of kidney (principal); N40.1 Benign prostatic hyperplasia with lower urinary tract symptoms; R97.20 Elevated prostate specific antigen [PSA]
CPT/HCPCS: 36415; 76770; 80053; 81001; 84153; 84154; 87086

== ENCOUNTER → 2024-03-07 09:16 | Outpatient (CLI) | payer MEDICARE, BC, SELFPAY ==
[2024-03-07 12:09] LABS: Appearance Urine UA CLEAR; Bilirubin Urine UA NEGATIVE (NEGATIVE); Color Urine UA YELLOW; Glucose Urine UA NEGATIVE (Negative); Ketones Urine UA TRACE (NEGATIVE); Leukocyte Esterase Urine UA NEGATIVE (NEGATIVE); Nitrite Urine UA NEGATIVE (Negative); Occult Blood Urine UA NEGATIVE (Negative); Protein Urine UA NEGATIVE (Negative); pH Urine UA 5.5 (4.5-8.0)
[2024-03-07 12:24] LABS: Bacteria Urine None Seen; Hyaline Casts Urine 1-5/LPF; RBC Urine None Seen (0-5/HPF); Squamous Epithelial Cell Urine None Seen (0-5/HPF); Urine Volume 10mL (spun); WBC Urine 1-5/HPF (0-5/HPF)
[2024-03-07 12:25] LABS: Culture Indicated Urine Cult Not Indicated
[2024-03-07 12:27] LABS: Alanine Aminotransferase 22 IU/L (<50); Albumin 4.3 g/dL (3.5-5.0); Albumin Globulin Ratio 1.5 (1.0-2.8); Alkaline Phosphatase 68 U/L (38-126); Aspartate Aminotransferase 42 IU/L (17-59); BUN Creatinine Ratio 19.1 (6-22); Bilirubin Total 0.8 mg/dL (0.2-1.3); Blood Urea Nitrogen 26 mg/dL (9-20); Carbon Dioxide 26 mmol/L (22-32); Chloride 105 mmol/L (98-107); Estimated Glomerular Filt Rate 54 mL/min (>60); Globulin 2.9 g/dL (1.7-4.1); Glucose 87 mg/dL (80-110); HEMOLYSIS < 15 (0-50); Potassium 4.9 mmol/L (3.4-5.1); Sodium 138 mmol/L (137-145); Total Protein 7.2 g/dL (6.3-8.2)
[2024-03-07 12:53] LABS: Prostate Specific Antigen 5.06 ng/mL (0.10-4.00)
[2024-03-09 07:36] LABS: PSA Free % 21.1 % (.); PSA, Total 4.6 ng/mL (0.0-4.0)
== END ==
PROVIDERS: PCP Family Medicine; Referring Provider Urology; Visit Provider Urology
DX: N40.0 Benign prostatic hyperplasia without lower urinary tract symptoms (principal); R97.20 Elevated prostate specific antigen [PSA]; N20.0 Calculus of kidney
CPT/HCPCS: 36415; 80053; 81001; 84153; 84154; 87086

== ENCOUNTER → 2024-03-16 12:50 | Outpatient (CLI) | payer MEDICARE, BC, SELFPAY ==
--- NOTE | 2024-03-16 12:53 | DI.MRI.S_ITS ---
PROCEDURE: MR HIP LT WO CON INDICATIONS: eval Left thigh numbness/pain TECHNIQUE: Noncontrast coronal T1 spin echo and STIR through the bony pelvis. Coronal and axial T2 fast spin echo with fat saturation, sagittal T1 spin echo, and oblique axial T2 fast spin echo with fat saturation through the hip. COMPARISON: Outside Facility, RG, CT IVP, 12/10/2023, 17:39. [facility], CR, XR FEMUR LT MIN 2V, 02/03/2024, 9:19. FINDINGS: Image quality: Excellent. Bones and joints: The visualized lower lumbar spine, the sacrum, bilateral sacroiliac joints, are unremarkable. T1 and T2 hypointense lesion in the left posterior iliac wing, , nonspecific but favors benign etiology. The right hip is well aligned. No acute fracture or dislocation of the right hip. The left hip is well aligned as well. No acute fracture or dislocation of the left hip. Tendons and ligaments: The left iliopsoas, and adductor tendon are unremarkable. Mild tendinosis of the hamstring with low-grade tear. The left gluteal minimus tendon is unremarkable. Mild peritendinitis of the left gluteal medius. Labrum and cartilage: Anterior superior labral tear. Degeneration of the posterior labrum. No focal chondral defect of the left hip. Soft tissues: Visualized prostate is unremarkable. No left inguinal lymphadenopathy. IMPRESSION: 1. Mild tendinosis of the left hamstring with low-grade tear. 2. Mild peritendinitis of the left gluteal medius. 3. Labral tear of the left hip. Dictated by: Vijaya Li M.D. on 03/16/2024 at 16:37 Approved by: Vijaya Li M.D. on 03/16/2024 at 16:45
== END ==
PROVIDERS: PCP Family Medicine; Referring Provider Family Medicine; Visit Provider Family Medicine
DX: M76.02 Gluteal tendinitis, left hip (principal); S73.192A Other sprain of left hip, initial encounter; M54.16 Radiculopathy, lumbar region; M54.41 Lumbago with sciatica, right side; M79.652 Pain in left thigh; G89.29 Other chronic pain
CPT/HCPCS: 73721

== ENCOUNTER → 2025-01-04 14:28 | Outpatient (CLI) | payer MEDICARE, BC, SELFPAY ==
[2025-01-04 16:09] LABS: Prostate Specific Antigen 6.76 ng/mL (0.10-4.00)
== END ==
PROVIDERS: PCP Family Medicine; Visit Provider Student in an Organized Health Care Education/Training Program
DX: R97.20 Elevated prostate specific antigen [PSA] (principal)
CPT/HCPCS: 36415; 84153

== ENCOUNTER → 2025-01-19 09:20 | Outpatient (CLI) | payer MEDICARE, BC, SELFPAY ==
--- NOTE | 2025-01-19 09:23 | DI.MRI.S_ITS ---
PROCEDURE: MR PELVIC PROSTATE PROTOCOL INDICATIONS: Elevated PSA TECHNIQUE: Coronal HASTE, axial T1 FSE with fat saturation, 3-plane nonbreath-hold T2 FSE. After the administration of contrast, dynamic axial, delayed axial and coronal VIBE or 2-D FLASH with fat saturation through the pelvis. Diffusion weighted imaging and ADC was performed. COMPARISON: None. FINDINGS: Image quality: Diffusion weighted and dynamic contrast enhanced images are diagnostic. Prostate: Gland size is 5.1 x 3.1 x 4.0 cm; ellipsoid gland volume is 43 mL. PSA density of 0.15, suspicious. Lesion 1: Location: Right anterior transition zone, base on axial series 5, image 10 and coronal series 7, image 11. Size: 1.6 x 1.0 cm. T2W signal: Hypointense, nonencapsulated. DWI signal: Markedly hyperintense. ADC signal: Markedly hypointense. Enhancement: Yes. Extracapsular extension: No. No neurovascular involvement. PI-RADS score: 5 Lesion 2: Location: Left medial peripheral zone, mid gland to base, on axial series 5, image 11 and coronal series 6, image 15. Size: 0.6 x 0.7 cm. T2W signal: Hypointense. DWI signal: Markedly hyperintense. ADC signal: Markedly hypointense. Enhancement: Yes. Extracapsular extension: No. No neurovascular involvement. PI-RADS score: 4 Lesion 3: Location: Left medial peripheral zone, apex, on axial series 5, image 15 and coronal series 6, image 14. Size: 0.9 x 0.7 cm. T2W signal: Hypointense. DWI signal: Markedly hyperintense. ADC signal: Markedly hypointense. Enhancement: Yes. Extracapsular extension: No. No neurovascular involvement. PI-RADS score: 4 Genitourinary system: Bladder wall thickness is normal. Distal ureters are non distended. Bowel and peritoneum: No pathologic free pelvic fluid. Inferior colon and small bowel loops are normal in caliber. Nodes and vessels: No pelvic or inguinal adenopathy by size criteria. Iliac vessels are normal in caliber. Soft tissues: No inguinal hernias. Bones: Marrow demonstrates normal overall signal, without lesions to suggest metastases. IMPRESSION: PI-RADS 4 and 5 lesions, as above. No extraprostatic extension. No pelvic lymphadenopathy by size criteria. No aggressive osseous abnormality. Dictated by: Reed Saravia M.D. on 01/21/2025 at 9:24 Approved by: Reed Saravia M.D. on 01/21/2025 at 9:32
== END ==
PROVIDERS: PCP Family Medicine; Referring Provider Family Medicine; Visit Provider Family Medicine
DX: R97.20 Elevated prostate specific antigen [PSA] (principal)
CPT/HCPCS: 72197; A9579

== ENCOUNTER → 2025-01-22 09:19 | Outpatient (CLI) | payer MEDICARE, BC, SELFPAY ==
--- NOTE | 2025-01-22 09:22 | DI.ECHO.S_ITS ---
[facility] : : [address] : : [place] : : [id number] : : Phone: [phone] Echocardiogram Report + + :Name: PIERCE WOODS Study Date: 01/22/2025 Height: 74 in : :[facility] ReadingLocation: Weight: 174 lb : : Gender: Male BSA: 2.0 m2 : :: 1950 Age: 75 yrs BP: 137/82 mmHg: :Reason For Study: HISTORY OF LEFT VENTRICULAR HYPERTROPHY : :Ordering Physician: ALBINO, : :HAYDE Performed By: Jerica Gamboa : :Referring: HAYDE POSADA : + + Interpretation Summary The left ventricle is normal in size and wall thickness. Left ventricular systolic function appears normal without focal wall motion abnormalities. The ejection fraction is estimated to be 50-55%. Diastolic parameters suggest a relaxation abnormality of the left ventricle, consistent with probable normal filling pressures. The right ventricle is normal in size and function. The right ventricular systolic pressure is estimated to be at least 25 mmHg based on an estimated right atrial pressure of 3 mm Hg. The left atrial size is normal. There is mild mitral regurgitation. There is mild aortic regurgitation. There is mild to moderate pulmonic regurgitation with an eccentric jet. The ascending aorta is mild-moderately enlarged. Procedure: A two-dimensional transthoracic echocardiogram with color flow and Doppler was performed. The study quality was technically adequate. There is no prior echocardiogram noted for this patient. The patient was in sinus rhythm with heart rates between 58-72 bpm during the exam. Left Ventricle: The left ventricle is normal in size and wall thickness. Left ventricular systolic function appears normal without focal wall motion abnormalities. The ejection fraction is estimated to be 50-55%. Diastolic parameters suggest a relaxation abnormality of the left ventricle, consistent with probable normal filling pressures. Right Ventricle: The right ventricle is normal in size and function. Atria: The left atrial size is normal. Right atrial size is normal. There is no Doppler evidence for an interatrial shunt. Mitral Valve: The mitral valve leaflets appear borderline thickened, but open well. There is mild mitral regurgitation. Aortic Valve: The aortic valve is trileaflet. The aortic valve opens well. There is no aortic valve stenosis. There is mild aortic regurgitation. Tricuspid Valve: The tricuspid valve leaflets are thin and pliable. There is mild tricuspid regurgitation. The right ventricular systolic pressure is estimated to be at least 25 mmHg based on an estimated right atrial pressure of 3 mm Hg. Pulmonic Valve: The pulmonic valve leaflets are thin and pliable; valve motion is normal. There is mild to moderate pulmonic regurgitation. Eccentric jet. Great Vessels: The aortic root is normal size. The ascending aorta is mild- moderately enlarged. The IVC is of normal diameter and collapses greater than 50% with a sniff. This suggests a low right atrial pressure of 3 mm Hg. Pericardium/ Pleura There is no pericardial effusion. There is no pleural effusion. MMode/2D Measurements & Calculations LVIDd: 4.4 cm LVOT diam: 2.2 cm LVIDs: 3.1 cm Ao root diam: 3.9 cm FS: 28.8 % asc Aorta Diam: 4.3 cm EPSS: 1.1 cm Ao Arch Diam (Prox Trans): 2.7 cm IVSd: 0.94 cm LVPWd: 0.76 cm LV payne. diameter/BSA (cm/m^2): 2.1 LV sys. diameter/BSA (cm/m^2): 1.5 LA A2 area: 18.1 cm2 RA long axis: 4.7 cm LA A4 area: 13.5 cm2 RA area: 12.0 cm2 LA length (vol): 4.7 cm RA vol: 26.0 ml LA vol: 44.0 ml RA : 12.7 ml/m2 LA vol index: 21.5 ml/m2 IVC diam: 1.3 cm RVD1 (basal): 3.9 cm RVD2 (mid): 3.3 cm TAPSE: 1.9 cm Doppler Measurements & Calculations Ao V2 max: 104.4 cm/sec LVOT Max Alan: 87.3 cm/sec Ao V2 mean: 69.7 cm/sec LV V1 max P.0 mmHg Ao max P.4 mmHg LV V1 VTI: 17.8 cm Ao mean P.2 mmHg JEN(I,D): 3.2 cm2 Ao V2 VTI: 21.7 cm JEN(V,D): 3.2 cm2 sev ratio: 0.82 JEN indexed to BSA (cm^2/m^2): 1.5 AI P1/2t: 504.3 msec AI dec slope: 265.6 cm/sec2 MV E max alan: 46.1 cm/sec TR max alan: 232.0 cm/sec MV A max alan: 63.9 cm/sec TR max P.5 mmHg MV E/A: 0.72 PA V2 max: 106.1 cm/sec Med Peak E' Alan: 5.7 cm/sec PA V2 mean: 68.6 cm/sec E/E' med: 8.1 PA mean P.2 mmHg Lat Peak E' Alan: 7.5 cm/sec PA pr(Accel): 30.2 mmHg E/E' lat: 6.2 E/e' average: 7.1 MV dec time: 0.23 sec SV(LVOT): 68.7 ml Reading Physician:06:49 PM
== END ==
PROVIDERS: PCP Family Medicine; Referring Provider Family Medicine; Visit Provider Family Medicine
DX: I08.3 Combined rheumatic disorders of mitral, aortic and tricuspid valves (principal); I77.810 Thoracic aortic ectasia
CPT/HCPCS: 93306

== ENCOUNTER 2025-03-28 07:28 | Observation (INO) | payer MEDICARE, BC, SELFPAY ==
[2025-03-28] VITALS (16 sets, daily range): BP systolic 110–137; BP diastolic 57–81; PULSE 56–98; RESP 15–26; TEMP 36.6–36.9; O2SAT 88–100; BMI 22.1
--- NOTE | 2025-03-28 07:31 | EKG_ITS ---
[address] [address] Test Date: 2025-03-28 Pat Name: Anurag Chan Department: Room: Gender: Male Appliquer Zigzag: DANIEL : 1950 Requested By: Order Number: [id number] Reading MD: Suraj Perez Measurements Intervals [place] Rate: 60 P: 60 IN: 200 QRS: -29 QRSD: 88 T: 32 QT: 390 QTc: 390 Interpretive Statements Normal sinus rhythm Possible Left atrial enlargement Minimal voltage criteria for LVH, may be normal variant ( R in aVL ) Electronically Signed On 03-29-2025 8:40:10 PDT by Suraj Perez
--- NOTE | 2025-03-28 07:31 | DI.RAD.S_ITS ---
PROCEDURE: XR CHEST 1V INDICATIONS: Chest Pain TECHNIQUE: One view of the chest was acquired. COMPARISON: None. FINDINGS: Surgical changes and devices: None. Lungs and pleura: Lungs are clear. No pleural effusions or pneumothorax. Mediastinum: Mediastinal contours appear normal. Heart size is normal. Bones and chest wall: No suspicious bony lesions. Overlying soft tissues appear unremarkable. IMPRESSION: No acute cardiopulmonary abnormality is seen. Dictated by: Reed Saravia M.D. on 03/28/2025 at 8:30 Approved by: Reed Saravia M.D. on 03/28/2025 at 8:30
[2025-03-28 07:38] LABS: Add Manual Diff / Slide Review NO; Hematocrit 39.0 % (41-53); Hemoglobin 13.3 g/dL (13.5-17.5); Lymphocytes Absolute Auto 1600 /uL (1100-4500); Mean Corpuscular HGB Conc 34.1 % (30-36); Mean Corpuscular Hemoglobin 30.8 PG (26-34); Mean Corpuscular Volume 90.3 fL (80-100); Platelet Count 237 X10^3/uL (150-400)
--- NOTE | 2025-03-28 07:43 | ED.CHESTPAIN ---
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 brought in via EMS given 4 baby aspirin and 1 nitro and currently the pain is now down to a 3/10. He said it is painful to take a deep breath and has had a stress test he believes over 15 years ago that to his knowledge was normal. Other than what is stated 14 point review of system is negative. Related Data Home Medications ?Medication ?Instructions ?Recorded ?Confirmed clobetasol 0.05 % topical cream 1 applic topical DAILY PRN 12/27/24 01/25/25 isotretinoin 40 mg capsule 40 mg PO DAILY 12/27/24 01/25/25 Previous Rx's ?Medication ?Instructions ?Recorded zolpidem 5 mg tablet 5 mg PO BEDTIME PRN insomnia #30 07/11/24 tabs alprazolam 1 mg tablet 1 mg PO BID-TID PRN anxiety #10 12/27/24 tabs rosuvastatin 5 mg tablet 5 mg PO DAILY #60 tabs 12/27/24 tadalafil 5 mg tablet (Cialis) 5 mg PO DAILY #90 tabs 12/27/24 triamcinolone acetonide 0.1 % 1 applic topical DAILY #30 grams 12/27/24 topical cream Allergies Allergy/AdvReac Type Severity Reaction Status Date / Time latex Allergy Mild ITCHING Verified 01/25/25 07:21 Review of Systems Review of Systems ROS Unobtainable: All systems reviewed & are unremarkable except as noted in HPI and below Patient History Medical History (Updated 03/28/25 @ 15:55 by Parish Payton DO) Left thigh pain Mixed hyperlipidemia Degenerative disk disease Elevated glucose level Elevated PSA Renal calculus Right-sided low back pain with sciatica Chronic low back pain 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 Well-developed patient, in mild distress. HEAD: Atraumatic. Normocephalic. EYES: Pupils equal round and reactive. Extraocular motions intact. No scleral icterus. No injection or drainage. ENT: Nose without bleeding, purulent drainage. Throat without erythema, tonsillar hypertrophy or exudate. Airway patent. NECK: Trachea midline. Non tender CARDIOVASCULAR: Regular rate and rhythm without murmurs, gallops, or rubs. RESPIRATORY: Clear to auscultation. Breath sounds equal bilaterally. No wheezes, rales, or rhonchi. GASTROINTESTINAL: Abdomen soft, non-tender, nondistended. EXTREMITIES: No edema or joint tenderness. BACK: Nontender without deformity or crepitance. No flank tenderness. NEURO: AOx3. SKIN: No rash or erythema of visible areas Initial Vital Signs Initial Vital Signs: Vital Signs Temperature 97.8 F 03/28/25 07:45 Pulse Rate 98 H 03/28/25 07:45 Respiratory Rate 17 03/28/25 07:45 Blood Pressure 132/77 03/28/25 07:45 Pulse Oximetry 100 03/28/25 07:45 Oxygen Delivery Method Room Air 03/28/25 07:45 Scores HEART Score Heart Score history: Slightly Suspicious Heart Score EKG: Normal Heart Score Age: > or = 65 years old Heart Score risk factors: No known risk factors Heart Score troponin: < or = to normal limit Heart Score Total: 2 Course Orders Ordered: Alprazolam (Alprazolam 0.25 Mg Tablet) 1 mg PO TID PRN PRN Reason: Anxiety Atorvastatin Calcium (Atorvastatin 20 Mg Tablet) 10 mg PO DAILY EMANUEL Ibuprofen (Ibuprofen 400 Mg Tablet) 400 mg PO Q4H PRN PRN Reason: Pain, Mild (1-3) Ketorolac Tromethamine (Ketorolac 30 Mg/Ml Vial) 15 mg IV Q6H PRN PRN Reason: Chest Pain Stop: 04/02/25 16:44 Last Admin: 03/29/25 06:17 Dose: 15 mg Documented By: Admin: 03/29/25 00:06 Dose: 15 mg Documented By: SH Naloxone HCl (Naloxone 0.4 Mg/Ml Vial) 0.2 mg IV Q2MIN PRN PRN Reason: Opiate Reversal Non-Formulary Medication (Isotretinoin) 40 mg PO DAILY EMANUEL Oxycodone HCl (Oxycodone Ir 10 Mg Tablet) 10 mg PO Q3H PRN PRN Reason: Pain, Severe (7-10) Zolpidem Tartrate (Zolpidem 5 Mg Tablet) 5 mg PO BEDTIME PRN PRN Reason: Insomnia Discontinued Medications Al Hydrox/Mg Hydrox/Simethicone 30 ml/ Lidocaine HCl 15 ml 0 ml PO NOW ONE Stop: 03/28/25 10:09 Last Admin: 03/28/25 12:35 Dose: 45 ml Documented By: LM Ketorolac Tromethamine (Ketorolac 30 Mg/Ml Vial) 15 mg IV NOW ONE Stop: 03/28/25 16:43 Last Admin: 03/28/25 17:50 Dose: 15 mg Documented By: MM Morphine Sulfate (Morphine 4 Mg/Ml Inj) 4 mg IV NOW ONE Stop: 03/28/25 09:02 Last Admin: 03/28/25 09:15 Dose: 4 mg Documented By: ES Morphine Sulfate (Morphine 4 Mg/Ml Inj) 4 mg IV NOW ONE Stop: 03/28/25 13:46 Last Admin: 03/28/25 13:56 Dose: 4 mg Documented By: LM Nitroglycerin (Nitroglycerin 0.4 Mg Sl Tab) 0.4 mg SL NOW ONE Stop: 03/28/25 07:55 Last Admin: 03/28/25 08:01 Dose: 0.4 mg Documented By: ES Nitroglycerin (Nitroglycerin 0.4 Mg Sl Tab) 0.4 mg SL NOW ONE Stop: 03/28/25 08:36 Last Admin: 03/28/25 08:37 Dose: 0.4 mg Documented By: ES Non-Formulary Medication (Rosuvastatin) 5 mg PO DAILY [facility] Vital Signs Vital signs: Vital Signs - 8 hr 03/28/25 07:45 03/28/25 08:01 03/28/25 08:37 Temperature 97.8 F Pulse Rate 98 H 68 62 Respiratory Rate 17 Blood Pressure 132/77 125/63 115/63 Pulse Oximetry 100 Oxygen Delivery Method Room Air 03/28/25 10:16 Temperature Pulse Rate 70 Respiratory Rate 15 Blood Pressure 110/63 Pulse Oximetry 99 Oxygen Delivery Method Room Air MDM - Chest Pain Lab Data 03/28/25 07:30 03/28/25 07:30 Labs: Lab Results 03/28/25 03/28/25 03/28/25 Range/Units 07:30 09:12 13:56 WBC 6.5 (4.5-11.0) X10^3/uL RBC 4.32 L (4.5-5.9) X10^6/uL Hgb 13.3 L (13.5-17.5) g/dL Hct 39.0 L (41-53) % MCV 90.3 (80-100) fL MCH 30.8 (26-34) PG MCHC 34.1 (30-36) % RDW 13.9 (11.6-14.8) % Plt Count 237 (150-400) X10^3/uL Neut % (Auto) 57.9 (50-75) % Lymph % (Auto) 24.4 L (25-40) % [place] % (Auto) 11.4 (3-14) % Eos % (Auto) 5.6 H (2-4) % Baso % (Auto) 0.7 (0-2) % Neut # (Auto) 3800 (8555-1659) /uL Lymph # (Auto) 1600 (8830-8601) /uL [place] # (Auto) 700 (0-900) /uL Eos # (Auto) 400 (0-450) /uL Baso # (Auto) 0 (0-100) /uL PT 11.4 (9.4-12.5) SECONDS INR 1.0 (0.9-1.3) APTT 34 (25.1-36.5) SECONDS D-Dimer 407 (<500) ng/ml Sodium 137 (137-145) mmol/L Potassium 4.0 (3.4-5.1) mmol/L Chloride 105 (98-107) mmol/L Carbon Dioxide 24 (22-32) mmol/L BUN 17 (9-20) mg/dL Creatinine 1.06 (0.66-1.25) mg/dL Estimated GFR > 60 (>60) mL/min BUN/Creatinine Ratio 16.0 (6-22) Glucose 93 (70-99) mg/dL Calcium 9.7 (8.4-10.2) mg/dL Magnesium 1.9 (1.6-2.3) mg/dL Total Bilirubin 1.0 (0.2-1.3) mg/dL AST 47 (17-59) IU/L ALT 19 (<50) IU/L Alkaline Phosphatase 71 (38-126) U/L Total Creatine Kinase 55 (55-170) U/L Troponin I < 0.012 < 0.012 < 0.012 (0.01-0.034) ng/mL NT-Pro-B Natriuret Pep 120 (<450) pg/mL Total Protein 7.5 (6.3-8.2) g/dL Albumin 4.4 (3.5-5.0) g/dL Globulin 3.1 (1.7-4.1) g/dL Albumin/Globulin Ratio 1.4 (1.0-2.8) Lipase 171 (23-300) U/L Imaging Data Chest x-ray: Radiologist's Impression: [place] [id number] XRay Report Signed Patient: Anurag Chan MR#: [id number] : 1950 Acct:[id number] Age/Sex: 75 / M Date of Service: 03/28/25 Loc: ED Accession Number: [id number] Procedure: XR chest 1V Ordering Provider: Parish Payton D.O. PROCEDURE: XR CHEST 1V INDICATIONS: Chest Pain TECHNIQUE: One view of the chest was acquired. COMPARISON: None. FINDINGS: Surgical changes and devices: None. Lungs and pleura: Lungs are clear. No pleural effusions or pneumothorax. Mediastinum: Mediastinal contours appear normal. Heart size is normal. Bones and chest wall: No suspicious bony lesions. Overlying soft tissues appear unremarkable. IMPRESSION: No acute cardiopulmonary abnormality is seen. Extremity x-ray #1: Radiologist's Impression: [address] [address] Nuclear Medicine Report Signed Patient: Anurag Chan MR#: [id number] : 1950 Acct:[id number] Age/Sex: 75 / M Date of Service: 03/28/25 Loc: Accession Number: [id number] Procedure: NM jamie perf SPECT R&S pharm Ordering Provider: Parish Payton D.O. PROCEDURE: NM JAMIE PERF SPECT R&S PHARM Rest and pharmacological stress myocardial perfusion SPECT with gated imaging and ejection fraction RADIOPHARMACEUTICAL: 9.4mCi Tc-99m tetrafosmin IV at rest and 26.3mCi Tc-99m tetrafosmin IV at peak effect of pharmacological stress. [id number] was performed. INDICATIONS: chest pain TECHNIQUE: Radiopharmaceutical was injected at peak stress test, and also at rest. SPECT images were obtained. SPECT myocardial perfusion images were displayed in short axis, horizontal long axis, and vertical long axis views. Gated images were reviewed using [employer] software. COMPARISON: None. CARDIAC STRESS: A pharmacologic stress test was performed under the supervision of an attending staff, using an infusion of lexiscan 0.4mg IV X1. Hemodynamic data: There is normal blood pressure and heart rate response to pharmacologic stress. Symptoms: The patient denied anginal chest pain. Aminophylline: none EKG: No diagnostic changes of ischemia; occasional PVCs present during the study. FINDINGS: Raw data: There is good myocardial uptake of radiotracer. No significant motion artifacts. Left ventricle function: Gated images demonstrate normal left ventricular wall thickening. No segmental wall motion abnormalities. No transient ischemic dilation; TID is 0.94 (normal less than 1.3). Left ventricle post stress end diastolic volume is 117 mL. Left ventricle stress ejection fraction is 72%; normal range is above 45%. Myocardial perfusion: There is normal distribution of activity in the right and left ventricular myocardium. No fixed or reversible perfusion defects. SSS 0. IMPRESSION: Low risk, normal pharm nuclear stress test with normal LV size, wall motion, and systolic function (EF post stress 72%). No angina during the study. Dictated by: Yonas Murray MD on 03/28/2025 at 13:08 Approved by: Yonas Murray MD on 03/28/2025 at 13:10 CT scan - chest: Radiologist's Impression: [address] [address] [address] Scan Report Signed Patient: Anurag Chan MR#: [id number] : 1950 Acct:[id number] Age/Sex: 75 / M Date of Service: 03/28/25 Loc: ED Accession Number: [id number] Procedure: CT angio chest PE protocol Ordering Provider: Parish Payton D.O. PROCEDURE: CT ANGIO CHEST PE PROTOCOL INDICATIONS: chest pain TECHNIQUE: After the administration of intravenous contrast, 2 mm thick sections acquired from the pulmonary apices to the posterior costophrenic angles. 3-dimensional maximum intensity projection (MIP) coronal and sagittal reformats were then acquired through the thorax. For radiation dose reduction, the following was used: automated exposure control, adjustment of mA and/or kV according to patient size. COMPARISON: None. FINDINGS: Image quality: Diagnostic. Pulmonary arteries: Pulmonary arteries are normal in size, and demonstrate no intraluminal filling defects to suggest central pulmonary embolism. Lower Neck: No enlarged lymph nodes. Thyroid: No thyroid nodules which require sonographic follow up, per consensus guidelines. Axillae: No enlarged lymph nodes. Chest Wall: Unremarkable. Bones: Unremarkable. Lungs and Pleura: No pneumothorax or pleural effusions. No consolidation or suspicious nodules. Heart: Heart size is mildly enlarged. No pericardial effusion. Ascending aortic aneurysm measuring 4.9 cm. Thoracic Vessels: No aortic aneurysm. Mediastinum and Emilie: No enlarged lymph nodes. Esophagus: No wall thickening. No hiatal hernia. Upper Abdomen: Visualized upper abdomen solid organs and bowel loops appear normal. IMPRESSION: No pulmonary embolus. Ascending aortic aneurysm measuring 4.9 cm. No evidence of acute aortic syndrome. ECG Data Interpretation: NSR HR 60 MI 200 QRS [address]-t wave change NO previous EKG to compare MDM Narrative Medical decision making narrative: Vital signs, nurse triage note, medication list, previous ER visits, and all imaging studies reviewed. Chest x-ray showed no acute process. Myocardial stress test impression low risk normal nuclear stress test with normal LV size wall motion is systolic function. CTA chest showed no pulmonary embolus however ascending aortic aneurysm measuring 4.9 cm. No evidence of acute aortic syndrome. Three sets troponin are normal. Patient has been given 4 baby aspirin, 3 nitros total, 4 mg of morphine, x2 GI cocktail and still symptomatic at this time with continued chest pain despite negative work up thus far. Heart score 2.0 Case discussed with who has graciously accepted the patient for inpatient admission Discharge Plan Departure Patient Disposition: Admitted as Observation Clinical Impression: Chest pain Qualifiers: Chest pain type: chest pain on breathing Qualified Code(s): R07.1 - Chest pain on breathing Aortic aneurysm Qualifiers: Aortic location: thoracic aorta Thoracic aorta location: ascending aorta Presence of rupture: without rupture Qualified Code(s): I71.21 - Aneurysm of the ascending aorta, without rupture Admit Date/Time: 03/28/25 15:56 Admit Provider: Ugo Arguelles
[2025-03-28 07:46] LABS: INR 1.0 (0.9-1.3); Prothrombin Time 11.4 SECONDS (9.4-12.5)
[2025-03-28 07:48] LABS: PTT Partial Thromboplastin Tim 34 SECONDS (25.1-36.5)
[2025-03-28 08:01] LABS: Alanine Aminotransferase 19 IU/L (<50); Albumin 4.4 g/dL (3.5-5.0); Albumin Globulin Ratio 1.4 (1.0-2.8); Alkaline Phosphatase 71 U/L (38-126); Blood Urea Nitrogen 17 mg/dL (9-20); Calcium 9.7 mg/dL (8.4-10.2); Carbon Dioxide 24 mmol/L (22-32); Chloride 105 mmol/L (98-107); Creatine Kinase 55 U/L (55-170); Estimated Glomerular Filt Rate > 60 mL/min (>60); Globulin 3.1 g/dL (1.7-4.1); Glucose 93 mg/dL (70-99); HEMOLYSIS 18 (0-50); Lipase 171 U/L (23-300); Magnesium 1.9 mg/dL (1.6-2.3); Potassium 4.0 mmol/L (3.4-5.1); Sodium 137 mmol/L (137-145); Total Protein 7.5 g/dL (6.3-8.2)
[2025-03-28] MEDS: NITROGLYCERIN 0.4 MG SL TAB SL ×2 (08:01→08:37)
[2025-03-28 08:12] LABS: NT-proBNP (BNP-Adult 18+) 120 pg/mL (<450); Troponin I < 0.012 ng/mL (0.01-0.034)
--- NOTE | 2025-03-28 09:03 | DI.NM.S_ITS ---
PROCEDURE: NM JAMIE PERF SPECT R&S PHARM Rest and pharmacological stress myocardial perfusion SPECT with gated imaging and ejection fraction RADIOPHARMACEUTICAL: 9.4mCi Tc-99m tetrafosmin IV at rest and 26.3mCi Tc-99m tetrafosmin IV at peak effect of pharmacological stress. [id number]-[id number] was performed. INDICATIONS: chest pain TECHNIQUE: Radiopharmaceutical was injected at peak stress test, and also at rest. SPECT images were obtained. SPECT myocardial perfusion images were displayed in short axis, horizontal long axis, and vertical long axis views. Gated images were reviewed using Newser software. COMPARISON: None. CARDIAC STRESS: A pharmacologic stress test was performed under the supervision of an attending staff, using an infusion of lexiscan 0.4mg IV X1. Hemodynamic data: There is normal blood pressure and heart rate response to pharmacologic stress. Symptoms: The patient denied anginal chest pain. Aminophylline: none EKG: No diagnostic changes of ischemia; occasional PVCs present during the study. FINDINGS: Raw data: There is good myocardial uptake of radiotracer. No significant motion artifacts. Left ventricle function: Gated images demonstrate normal left ventricular wall thickening. No segmental wall motion abnormalities. No transient ischemic dilation; TID is 0.94 (normal less than 1.3). Left ventricle post stress end diastolic volume is 117 mL. Left ventricle stress ejection fraction is 72%; normal range is above 45%. Myocardial perfusion: There is normal distribution of activity in the right and left ventricular myocardium. No fixed or reversible perfusion defects. SSS 0. IMPRESSION: Low risk, normal pharm nuclear stress test with normal LV size, wall motion, and systolic function (EF post stress 72%). No angina during the study. Dictated by: Yonas Murray MD on 03/28/2025 at 13:08 Approved by: Yonas Murray MD on 03/28/2025 at 13:10
[2025-03-28] MEDS: MORPHINE 4 MG/ML INJ IV ×2 (09:15→13:56)
[2025-03-28 09:44] LABS: Troponin I < 0.012 ng/mL (0.01-0.034)
--- NOTE | 2025-03-28 11:12 | PC.NURSE ---
Pt to imaging at this time
[2025-03-28] MEDS: MAG HYDROX/ALUMINUM/SIMETH SUS 30 ML, LIDOCAINE VISCOUS 2% 15 ML PO (12:35)
--- NOTE | 2025-03-28 13:56 | DI.CT.S_ITS ---
PROCEDURE: CT ANGIO CHEST PE PROTOCOL INDICATIONS: chest pain TECHNIQUE: After the administration of intravenous contrast, 2 mm thick sections acquired from the pulmonary apices to the posterior costophrenic angles. 3-dimensional maximum intensity projection (MIP) coronal and sagittal reformats were then acquired through the thorax. For radiation dose reduction, the following was used: automated exposure control, adjustment of mA and/or kV according to patient size. COMPARISON: None. FINDINGS: Image quality: Diagnostic. Pulmonary arteries: Pulmonary arteries are normal in size, and demonstrate no intraluminal filling defects to suggest central pulmonary embolism. Lower Neck: No enlarged lymph nodes. Thyroid: No thyroid nodules which require sonographic follow up, per consensus guidelines. Axillae: No enlarged lymph nodes. Chest Wall: Unremarkable. Bones: Unremarkable. Lungs and Pleura: No pneumothorax or pleural effusions. No consolidation or suspicious nodules. Heart: Heart size is mildly enlarged. No pericardial effusion. Ascending aortic aneurysm measuring 4.9 cm. Thoracic Vessels: No aortic aneurysm. Mediastinum and Emilie: No enlarged lymph nodes. Esophagus: No wall thickening. No hiatal hernia. Upper Abdomen: Visualized upper abdomen solid organs and bowel loops appear normal. IMPRESSION: No pulmonary embolus. Ascending aortic aneurysm measuring 4.9 cm. No evidence of acute aortic syndrome. Dictated by: Reed Saravia M.D. on 03/28/2025 at 14:37 Approved by: Reed Saravia M.D. on 03/28/2025 at 14:41
[2025-03-28 14:31] LABS: Troponin I < 0.012 ng/mL (0.01-0.034)
--- NOTE | 2025-03-28 15:45 | PC.NURSE ---
Pt c/o pain with inspiration, states no relief from medications. Pt A&Ox4, RA, NAd, breathing even/equal/unlabored at this time. Call light within reach, provider updated to pt's pain
--- NOTE | 2025-03-28 16:46 | PM.HP.1 ---
History of Present Illness History of Present Illness Date Patient Seen: 03/28/25 Chief complaint: Pleuritic chest pain Narrative: Chief complaint: Chest pain with inspiration negative stress nuclear medicine negative CT angiography negative troponin admitted for pain control History of present illness: 75-year-old male woke up this morning having pain with inspiration. Was evaluated in the emergency department underwent stress nuclear medicine testing CT angiography and there were no significant findings other than a 4.9 cm dilation of the ascending aorta without acute aortic syndrome. Cardiac enzymes were negative. Patient was still having chest pains with inspiration was admitted for pain control at the request of the emergency physician. Past medical history surgical history family and social history please see the bottom of the note: Review of systems: No dyspnea No wheezing or shortness a breath No nausea vomiting diarrhea No paresthesia paresis No syncope Physical exam Elderly male no acute distress appearing quite fit and young for age HEENT unremarkable Neck no JVD Heart rate and rhythm regular no murmurs Lungs clear to auscultation perhaps a rub with inspiration Abdomen nontender bowel sounds normal nondistended Extremities no edema Is alert and oriented cogent Neurologic nonfocal. For objective laboratory and imaging findings please see the bottom of the note. Assessment and plan: Pleuritic chest pain request did to admit for pain control. Given the inflammatory nature and is likely for this pain Toradol was ordered No further diagnostic workup indicated DVT prophylaxis: Not indicated Code status: Full code blue 55 minutes were involved in the management of this patient including fwtm-au-avau interview with the patient physical examination of the patient review of laboratory objective and imaging studies discussion with the emergency provider. 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05 % topical cream 1 applic topical DAILY PRN 12/27/24 01/25/25 History isotretinoin 40 mg capsule 40 mg PO DAILY 12/27/24 01/25/25 History rosuvastatin 5 mg tablet 5 mg PO DAILY #60 tabs 12/27/24 01/25/25 Rx tadalafil 5 mg tablet (Cialis) 5 mg PO DAILY #90 tabs 12/27/24 01/25/25 Rx triamcinolone acetonide 0.1 % 1 applic topical DAILY #30 grams 12/27/24 01/25/25 Rx topical cream Allergies Allergy/AdvReac Type Severity Reaction Status Date / Time latex Allergy Mild ITCHING Verified 01/25/25 07:21 Exam Vital Signs (past 8 hours): - 03/28/25 10:16 03/28/25 10:17 03/28/25 10:18 Pulse Rate 70 61 Respiratory Rate 15 Blood Pressure 110/63 125/58 L Pulse Oximetry 99 98 Oxygen Delivery Method Room Air 03/28/25 10:18 03/28/25 10:30 03/28/25 10:30 Pulse Rate 60 56 L Respiratory Rate Blood Pressure 114/57 L Pulse Oximetry 97 97 Oxygen Delivery Method 03/28/25 11:00 03/28/25 11:00 03/28/25 12:33 Pulse Rate 59 L 74 Respiratory Rate Blood Pressure 121/59 L Pulse Oximetry 97 88 L Oxygen Delivery Method 03/28/25 12:34 03/28/25 12:34 03/28/25 13:00 Pulse Rate 75 Respiratory Rate Blood Pressure 136/65 118/59 L Pulse Oximetry 96 Oxygen Delivery Method 03/28/25 13:00 03/28/25 13:30 03/28/25 13:30 Pulse Rate 71 74 Respiratory Rate 18 21 Blood Pressure 128/61 Pulse Oximetry 95 96 Oxygen Delivery Method 03/28/25 14:00 03/28/25 14:00 Pulse Rate 75 Respiratory Rate 26 H Blood Pressure 135/63 Pulse Oximetry 96 Oxygen Delivery Method Oxygen Delivery Method Room Air Objective Labs 03/28/25 07:30 03/28/25 07:30 Labs: Laboratory Results - last 24 hr 03/28/25 03/28/25 03/28/25 07:30 09:12 13:56 WBC 6.5 RBC 4.32 L Hgb 13.3 L Hct 39.0 L MCV 90.3 MCH 30.8 MCHC 34.1 RDW 13.9 Plt Count 237 Neut % (Auto) 57.9 Lymph % (Auto) 24.4 L [place] % (Auto) 11.4 Eos % (Auto) 5.6 H Baso % (Auto) 0.7 Neut # (Auto) 3800 Lymph # (Auto) 1600 [place] # (Auto) 700 Eos # (Auto) 400 Baso # (Auto) 0 PT 11.4 INR 1.0 APTT 34 D-Dimer 407 Sodium 137 Potassium 4.0 Chloride 105 Carbon Dioxide 24 BUN 17 Creatinine 1.06 Estimated GFR > 60 BUN/Creatinine Ratio 16.0 Glucose 93 Calcium 9.7 Magnesium 1.9 Total Bilirubin 1.0 AST 47 ALT 19 Alkaline Phosphatase 71 Total Creatine Kinase 55 Troponin I < 0.012 < 0.012 < 0.012 NT-Pro-B Natriuret Pep 120 Total Protein 7.5 Albumin 4.4 Globulin 3.1 Albumin/Globulin Ratio 1.4 Lipase 171 Assessment & Plan Time-Based Coding :: [TOTAL MINUTES] spent with patient and on the chart (including review of chart, obtaining history, exam, reviewing outside data, placing orders, documenting exam and treatment plan, and counseling patient) on [DATE].
[2025-03-28] MEDS: KETOROLAC 30 MG/ML VIAL 15 MG IV (17:50)
[2025-03-29] MEDS: KETOROLAC 30 MG/ML VIAL 15 MG IV ×2 (00:06→06:17)
[2025-03-29 08:22] VITALS: BP 122/71; PULSE 66; RESP 15; TEMP 36.2; O2SAT 98
--- NOTE | 2025-03-29 11:23 | PM.DS.1 ---
History of Present Illness History of Present Illness Chief complaint: Pleuritic chest pain Narrative: From H&P: 75-year-old male woke up this morning having pain with inspiration. Was evaluated in the emergency department underwent stress nuclear medicine testing CT angiography and there were no significant findings other than a 4.9 cm dilation of the ascending aorta without acute aortic syndrome. Cardiac enzymes were negative. Patient was still having chest pains with inspiration was admitted for pain control at the request of the emergency physician. Discharge Providers Provider Date of admission: 03/28/25 15:56 Discharge Date: 03/29/25 Primary care physician: Mariana Santo DO Consults: None. Discharge provider: Suraj Perez MD Summary Hospital Course Discharge Diagnosis: 1. Pleuritic chest pain, present on admission and improved. 2. Incidental finding of an ascending aortic aneurysm at 4.9 cm. Hospital Course: He was admitted and treated with Toradol for 2 doses for anti-inflammatory effect with his pleuritic chest pain. Chest x-ray was unremarkable. CT did reveal an ascending aortic aneurysm. His pain improved. In the day of discharge his exam was normal as he was felt to be stable for discharge home. Ibuprofen at a low dose twice to 3 times if day for 2-3 day was was recommended. He was asked to see Mariana Santo and follow up in the next week and call her attention to his ascending aortic aneurysm so he can be referred to vascular surgery for ongoing surveillance and management. Status at Discharge Cognitive/behavioral status at discharge: oriented Functional status at discharge: independent ambulation Overall status at discharge: patient is back to baseline Time Spent with Patient Time spent: Greater than 30 minutes Exam Vital Signs (past 8 hours): - 03/29/25 08:22 Temperature 97.2 F L Pulse Rate 66 Respiratory Rate 15 Blood Pressure 122/71 Pulse Oximetry 98 Oxygen Flow Rate 0 Oxygen Delivery Method Room Air Oxygen Flow Rate 0 Narrative Exam Narrative: NAD, alert and oriented. Fluent speech. Lungs are clear, normal rate and effort. Heart is regular, no murmur gallop or rub. Abdomen is soft, non distended. Extremities are free of edema. Objective ECG Impression: Normal sinus rhythm Possible Left atrial enlargement Minimal voltage criteria for LVH, may be normal variant ( R in aVL ) Imaging Multiple studies:: Radiologist's impression: Chest CTA: No pulmonary embolus. Ascending aortic aneurysm measuring 4.9 cm. No evidence of acute aortic syndrome. Myocardial perfusion scan: Low risk, normal pharm nuclear stress test with normal LV size, wall motion, and systolic function (EF post stress 72%). No angina during the study. Chest x-ray: No acute cardiopulmonary abnormality is seen. 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 Pleuritic chest pain, present on admission and improved. 2. Incidental finding of an ascending aortic aneurysm at 4.9 cm. Plan of Treatment: Discharge home with ibuprofen b.i.d. to t.i.d. for 2-3 days. Follow up with PCP to call attention to ascending aortic aneurysm for referral to vascular surgery for ongoing recommendations and surveillance. Discharge Plan Discharge Plan Patient Disposition: Home Provider Discharge Comment: Stable for discharge home. Discharge orders & Medications Prescriptions: Continued zolpidem 5 mg tablet 5 mg PO BEDTIME PRN (Reason: insomnia) Qty: 30 0RF Rx Instructions: Take 1/2 - 1 tablet at bedtime NEEDED for difficulty sleeping. Do not use when taking Gabapentin. clobetasol 0.05 % cream 1 applic topical DAILY PRN isotretinoin 40 mg capsule 40 mg PO DAILY Rx Instructions: must administer with a meal/food tadalafil [Cialis] 5 mg tablet 5 mg PO DAILY Qty: 90 3RF rosuvastatin 5 mg tablet 5 mg PO DAILY Qty: 60 3RF triamcinolone acetonide 0.1 % cream 1 applic topical DAILY Qty: 30 1RF alprazolam 1 mg tablet 1 mg PO BID-TID PRN (Reason: anxiety) Qty: 10 1RF Rx Instructions: watch for possible sedation/dizziness/falls if taken during the day Follow up/Referrals: Mariana Santo DO [Primary Care Provider, Family Practice] Discharge Health Status Multidrug resistant organism: No MDRO Diet/Activity/Treatments Diet: Regular Visit Report/Discharge Packet Instructions: DI for Pleurisy, DI for Aortic Aneurysm Stand Alone Forms: Patient Portal/API, Stroke Signs & Symptoms Discharge Data Primary Care Provider: Mariana Santo Attending Provider: Ugo Arguelles Admit Date/Time: 03/28/25 15:56 Quality VTE Deep Vein Thrombosis/Pulmonary Embolism Present on Admission: No
--- NOTE | 2025-03-29 11:54 | CM.DANOTE ---
Initial DCP Assessment Note Pt is a 75 yo male, resident of [place], admitted OBS for chest pain r/o, HTN urgency. PCP: Mariana Santo Payer: MOLLY[employer]EUNICE Burciaga Reviewed chart, pt discussed in multidisciplinary rounds this morning. Patient discharged home, sx have resolved. Met w/patient who is sitting up in chair, dressed, eager to return home. Patient lives independently with spouse- who is away for a work conference- patient plans to have a neighbor transport him home and can ask for help at any time as needed. No barriers identified at this time to patient's safe discharge home w/friends and family to assist; close outpatient f/u recommended. Social work team will plan to follow clinical course closely in case any DC needs or concerns arise. ROSALIND Hernandez Discharge Planning/Care Management CM Discharge Assessment Start: 03/28/25 17:15 Freq: Status: Active Protocol: Document 03/29/25 11:51 [place] (Rec: 03/29/25 11:53 [place] [id number]) Discharge Planning Assessment Assigned Discharge ROSALIND Mckeon Veneer Sander DPOA/Assigned Obdulia Pack, spouse Designee Name Contact Information [phone] Advance Directives? No History Provided By Patient Prior Living House Arrangements Household Members spouse Type of Drives own vehicle transporation used prior to admit Independent with ADL Yes 's Is patient alert and Yes oriented? Comment Independent Discharge Plan Home Transportation Friends Arrangement Referrals Initiated None needed
== END 2025-03-29 12:34 | disposition home or self-care (01) ==
LOC: ED 15:55 → AC 15:56
PROVIDERS: Admitting Provider Internal Medicine; Emergency Provider Family Medicine; PCP Family Medicine; Referring Provider Family Medicine; Visit Provider Internal Medicine
DX: R07.81 Pleurodynia (principal); C61 Malignant neoplasm of prostate; I71.21 Aneurysm of the ascending aorta, without rupture
CPT/HCPCS: 36415; 71045; 71275; 78452; 80053; 82550; 83690; 83735; 83880; 84484; 85025; 85379; 85610; 85730; 93005; 93017; 96374; 96375; 96376; 99284; G0378; A9502; J1885; J2270; J2785; Q9967